=== PATIENT | male | born 1960 | race Caucasian/White ===

== ENCOUNTER 2017-01-16 16:31 | Emergency (ER) | payer OTHER ==
[~2017-01-16 16:31] MED LIST: ALBU8I INH; BENZ100 PO; LORTA5 PO; SYMB160A INH; TRAZ100 PO
[2017-01-16] MEDS ORDERED: SYMB80AE INH (16:49)
[2017-01-16] MEDS ORDERED: ALBU8TAB PO (16:49)
[2017-01-16] MEDS ORDERED: TRAZ100T4 PO (16:49)
[2017-01-16 16:53] VITALS: BP 132/87; PULSE 96; TEMP 98.5; O2SAT 96
[2017-01-16] MEDS ORDERED: DILT120T PO (16:59)
[2017-01-16] MEDS ORDERED: ASPI81CH CHEW (16:59)
--- NOTE | 2017-01-16 17:09 | PD ---
HPI Chief Complaint: Psychiatric Symptoms Time Seen by Provider: 16:50 Travel History International Travel<30 days: No Contact w/Intl Traveler<30days: No Traveled to known affect area: No History of Present Illness HPI This is a 56-year-old male who presents to the emergency department having been brought to [facility] under a Jean act because he was having thoughts of killing himself. He was referred here because he told them he has a history of lung cancer and is on multiple medications and they say that he is out of their scope of practice of care. Patient admits to drinking a lot of beer today and is a poor historian. Review of the patient's records demonstrate that he had a lung cancer which was resected in April of last year. His course was complicated by a persistent air leak associated with this chest tube. Ultimately he had clean tumor margins. He went to a consultation with Dr. Randall for possible radiation therapy and was told this wasn't indicated. He reports he takes tramadol intermittently for pain. PFSH Past Medical History Atrial Fibrillation: Yes Blood Disorders: No Cancer: Yes (Lung) Cardiovascular Problems: No Chemotherapy: No Congestive Heart Failure: No COPD: Yes Coronary Artery Disease: No Diabetes: No Endocrine: No Gastrointestinal Disorders: No Genitourinary: No Hypertension: No Immune Disorder: No Implanted Vascular Access Dvce: No Musculoskeletal: No Neurologic: Yes (hx of seizures "years ago") Psychiatric: No Reproductive: No Respiratory: Yes Seizures: Yes Past Surgical History Other Surgery: Yes (PART OF TOP RIGHT LUNG REMOVED FOR CA ) Social History Alcohol Use: Yes Tobacco Use: Yes Substance Use: Yes Allergies-Medications (Allergen,Severity, Reaction): Coded Allergies: No Known Allergies (Verified , 01/16/17) Reported Meds & Prescriptions Reported Meds & Active Scripts Active Reported Aspirin 81 Mg Chew 81 Mg CHEW DAILY Diltiazem (Diltiazem HCl) 120 Mg Tab 120 Mg PO DAILY Trazodone (Trazodone HCl) 100 Mg Tab 100 Mg PO HS Symbicort Inh (Budesonide/Formoterol Fumarate) 80-4.5 Mcg/Act Aero 2 Puff INH Q12HR Albuterol ER 12 HR (Albuterol Sulfate) 8 Mg Tab 8 Mg PO BID Do not crush or chew. Review of Systems ROS Limitations: Intoxication Physical Exam Narrative GENERAL:Well appearing, no acute distress SKIN: Focused skin assessment warm and dry. HEAD: Atraumatic. Normocephalic. EYES: Pupils equal and round. No injection or drainage. ENT: Moist mucous membranes NECK: Trachea midline. CARDIOVASCULAR: Regular rate and rhythm. No murmur appreciated. RESPIRATORY: Clear to auscultation. Breath sounds equal bilaterally. GASTROINTESTINAL: Abdomen soft, non-tender, nondistended. MUSCULOSKELETAL: No obvious deformities. NEUROLOGICAL: Awake and alert. No obvious cranial nerve deficits. Moving all extremities. PSYCHIATRIC: Depressed mood, poor eye contact Data Data Last Documented VS Vital Signs Date Time Temp Pulse Resp B/P Pulse Ox O2 Delivery O2 Flow Rate FiO2 01/16/17 16:53 98.5 96 132/87 96 Orders Complete Blood Count With Diff (01/16/17 17:01) Comprehensive Metabolic Panel (01/16/17 17:01) Electrocardiogram (01/16/17 ) Alcohol (Ethanol) (01/16/17 17:01) Drug Screen, Random Urine (01/16/17 17:01) Chest, Single Ap (01/16/17 ) Labs Laboratory Tests Test 01/16/17 17:10 White Blood Count 12.2 TH/MM3 Red Blood Count 5.14 MIL/MM3 Hemoglobin 16.1 GM/DL Hematocrit 47.4 % Mean Corpuscular Volume 92.3 FL Mean Corpuscular Hemoglobin 31.4 PG Mean Corpuscular Hemoglobin 34.0 % Concent Red Cell Distribution Width 13.5 % Platelet Count 229 TH/MM3 Mean Platelet Volume 8.1 FL Neutrophils (%) (Auto) 64.3 % Lymphocytes (%) (Auto) 27.9 % Monocytes (%) (Auto) 6.2 % Eosinophils (%) (Auto) 1.2 % Basophils (%) (Auto) 0.4 % Neutrophils # (Auto) 7.8 TH/MM3 Lymphocytes # (Auto) 3.4 TH/MM3 Monocytes # (Auto) 0.8 TH/MM3 Eosinophils # (Auto) 0.1 TH/MM3 Basophils # (Auto) 0.1 TH/MM3 CBC Comment DIFF FINAL Differential Comment Sodium Level 138 MEQ/L Potassium Level 3.4 MEQ/L Chloride Level 104 MEQ/L Carbon Dioxide Level 25.2 MEQ/L Anion Gap 9 MEQ/L Blood Urea Nitrogen 6 MG/DL Creatinine 0.76 MG/DL Estimat Glomerular Filtration 106 ML/MIN Rate Random Glucose 102 MG/DL Calcium Level 8.7 MG/DL Total Bilirubin 0.4 MG/DL Aspartate Amino Transf 42 U/L (AST/SGOT) Alanine Aminotransferase 41 U/L (ALT/SGPT) Alkaline Phosphatase 106 U/L Total Protein 7.6 GM/DL Albumin 3.9 GM/DL Ethyl Alcohol Level 200 MG/DL MDM Medical Decision Making Medical Screen Exam Complete: Yes Emergency Medical Condition: Yes Interpretation(s) Afebrile, mild tachycardia, normotensive Leukocytosis Mild hypokalemia Alcohols 200 Differential Diagnosis Alcohol intoxication, lung cancer, dehydration, electrolyte abnormality Narrative Course This is a 56-year-old male who presents to the emergency department reporting depression in the setting of acute alcohol intoxication. He was turned away from [facility] because of his history of lung cancer. As far as I can tell from the chart is lung cancer has been resected and he had clear margins this is not an active medical issue. Otherwise the patient has no medical complaints. I think he can be cleared to be evaluated by psychiatry. His depression likely reflects alcohol-induced mood disorder. Buffy Zapata MD January 16, 2017 17:09
[2017-01-16 17:34] LABS: AUTOMATED NEUTROPHIL # 7.8 TH/MM3 (1.8-7.7); BASOPHIL # 0.1 TH/MM3 (0-0.2); BASOPHIL % 0.4 % (0.0-2.0); EOSINOPHIL # 0.1 TH/MM3 (0-0.4); EOSINOPHIL % 1.2 % (0.0-4.0); HEMATOCRIT 47.4 % (39.0-51.0); HEMO FLAGS DIFF FINAL; LYMPH % 27.9 % (9.0-44.0); LYMPHOCYTE # 3.4 TH/MM3 (1.0-4.8); MEAN CELL VOLUME 92.3 FL (80.0-100.0); MEAN CORPUSCULAR HEMOGLOBIN 31.4 PG (27.0-34.0); MONO % 6.2 % (0.0-8.0); NEUT % 64.3 % (16.0-70.0); PLATELET COUNT 229 TH/MM3 (150-450); RED BLOOD COUNT 5.14 MIL/MM3 (4.50-5.90); RED CELL DISTRIBUTION WIDTH 13.5 % (11.6-17.2); WHITE BLOOD COUNT 12.2 TH/MM3 (4.0-11.0)
--- NOTE | 2017-01-16 17:39 | RADRPT ---
EXAM DATE/TIME: 01/16/2017 17:15 [facility] COMPARISON: CHEST SINGLE AP, April 25, 2016, 3:44. INDICATIONS : Shortness of breath. MEDICAL HISTORY : Carcinoma, lung. SURGICAL HISTORY : Right lobectomy lymph node. ENCOUNTER: Initial ACUITY: 3 days PAIN SCORE: 0/10 LOCATION: Bilateral chest FINDINGS: 2 frontal views of the chest demonstrate the lungs to be symmetrically aerated without evidence of ma ss, infiltrate or effusion. The lungs are hyperinflated bilaterally. Linear scarring within the later al right upper lobe. The cardiomediastinal contours are unremarkable. Osseous structures are intact . CONCLUSION: 1. Hyperinflation suggesting COPD. 2. Clear lungs otherwise. Kirill Gilmore Jr., MD on January 16, 2017 at 17:33 Board Certified Radiologist. This report was verified electronically.
[2017-01-16 17:56] LABS: ANION GAP 9 MEQ/L (5-15); AST (GOT) 42 U/L (15-37); BICARBONATE 25.2 MEQ/L (21.0-32.0); BLOOD UREA NITROGEN 6 MG/DL (7-18); CHLORIDE 104 MEQ/L (98-107); GLOMERULAR FILTRATION RATE 106 ML/MIN (>89); POTASSIUM 3.4 MEQ/L (3.5-5.1); SODIUM (NA) 138 MEQ/L (136-145)
[2017-01-16 17:59] LABS: ALKALINE PHOSPHATASE 106 U/L (45-117); ALT (GPT) 41 U/L (12-78); TOTAL BILIRUBIN ADULT 0.4 MG/DL (0.2-1.0)
[2017-01-16 18:19] LABS: AMPHETAMINE, URINE NEG (NEG); BARBITURATES, URINE NEG (NEG); COCAINE, URINE NEG (NEG)
[2017-01-16] MEDS ORDERED: chlordiazePOXIDE 25 MG CAP PO PRN (18:30)
[2017-01-16] MEDS ORDERED: ALBUTEROL SULFATE 90 MCG/ACT HFA 8 GM INHALER INH PRN (18:30)
[2017-01-16] MEDS: ALBUTEROL SULFATE 90 MCG/ACT HFA 18 GM INHALER INH PRN ×2 (19:16→23:40)
[2017-01-16 20:25] VITALS: BP 150/89; PULSE 111; RESP 18; O2SAT 94
[2017-01-16 22:31] VITALS: BP 146/68; PULSE 114; RESP 20; O2SAT 96
[2017-01-16] MEDS ORDERED: FLUMAZENIL 0.5 MG/5 ML VIAL IV PUSH PRN (23:00)
[2017-01-16] MEDS ORDERED: LORazepam 2 MG TAB PO PRN (23:00)
[2017-01-16] MEDS ORDERED: LORazepam 1 MG TAB PO PRN (23:00)
[2017-01-16] MEDS ORDERED: DILTIAZEM-CD 120 MG CAP ER PO ONE (23:00)
[2017-01-16] MEDS ORDERED: LORazepam 2 MG/ML VIAL IV PUSH PRN ×4 (23:00)
[2017-01-17 00:19] VITALS: BP 113/69; PULSE 95; RESP 18; O2SAT 99
[2017-01-17 02:00] VITALS: BP 125/82; PULSE 96; RESP 18; O2SAT 93
[2017-01-17] MEDS: ALBUTEROL SULFATE 90 MCG/ACT HFA 18 GM INHALER INH PRN (06:18)
[2017-01-17 06:20] VITALS: BP 142/88; PULSE 89; RESP 18; O2SAT 97
--- NOTE | 2017-01-17 08:47 | EKG ---
Date Performed: 01/16/2017 Time Performed: 18:34:15 PTAGE: 56 years EKG: Sinus rhythm POSSIBLE RIGHT VENTRICULAR CONDUCTION DELAY MODERATE ST DEPRESSION ABNORMAL ECG PREVIOUS TRACING : 04/01/2016 14.07 DOCTOR: Elpidio Anderson Interpretating Date/Time 01/17/2017 08:46:31
--- NOTE | 2017-01-17 10:46 | PD.CONS ---
Provisional Diagnosis Admission Date Cowley I. Alcohol use disorder, alcohol-induced mood disorder Cowley II. Deferred Cowley III. A. fib, COPD Cowley IV. Poor family and social support Cowley V. 55 History of Present Illness Service Psychiatry Consult Requested By Primary Care Physician Non-Staff HPI The patient is a 56-year-old man, domicile with friends in [place], single, unemployed, supported by [facility], without any previous psychiatric history, no previous psychiatric hospitalizations, no previous suicidal attempts, medical history of COPD and A. fib, who presents to the emergency department having been brought to [facility] under a Jean act because he was having thoughts of killing himself. He was referred here because he told them he has a history of lung cancer and is on multiple medications and they say that he is out of their scope of practice of care. Patient admits to drinking a lot of beer today and is a poor historian.Review of the patient's records demonstrate that he had a lung cancer which was resected in April of 2016. On psychiatric evaluation today patient is clinically sober, reports good mood, he denies saying that he wanted to kill himself, he says "I love myself too much to kill myself, I was actually looking for her from alcoholism". Patient denies depression, denies anxiety, denies perceptual disturbances, denies roxanne, denies suicidal or homicidal ideation, denies visual and auditory hallucinations. Patient is logical, coherent and relevant. Patient is oriented 3. No attention deficit observed. No paranoia, no delusions, no agitation, no aggressive behavior. Patient denies the use of illicit drugs, he endorses daily use of alcohol, 6-10 beers, he has been 3 times in detox in the past. Review of Systems Constitutional: DENIES: Diaphoretic episodes, Fatigue, Fever, Weight gain, Weight loss, Chills, Dizziness, Change in appetite, Night Sweats Endocrine: DENIES: Heat/cold intolerance, Polydipsia, Polyuria, Polyphagia Eyes: DENIES: Blurred vision, Diplopia, Eye inflammation, Eye pain, Vision loss , Photosensitivity, Double Vision Ears, nose, mouth, throat: DENIES: Tinnitus, Hearing loss, Vertigo, Nasal discharge, Oral lesions, Throat pain, Hoarseness, Ear Pain, Running Nose, Epistaxis, Sinus Pain, Toothache, Odynophagia Cardiovascular: DENIES: Chest pain, Palpitations, Syncope, Dyspnea on Exertion , PND, Lower Extremity Edema, Orthopnea, Claudication Gastrointestinal: DENIES: Abdominal pain, Black stools, Bloody stools, Constipation, Diarrhea, Nausea, Vomiting, Difficulty Swallowing, Anorexia Genitourinary: DENIES: Sexual dysfunction, Urinary frequency, Urinary incontinence, Urgency, Hematuria, Dysuria, Nocturia, Penile Discharge, Testicular Pain, Testicular Swelling Musculoskeletal: DENIES: Joint pain, Muscle aches, Stiffness, Joint Swelling, Back pain, Neck pain Integumentary: DENIES: Abnormal pigmentation, Nail changes, Pruritus, Rash Hematologic/lymphatic: DENIES: Bruising, Lymphadenopathy Immunologic/allergic: DENIES: Eczema, Urticaria Neurologic: DENIES: Abnormal gait, Headache, Localized weakness, Paresthesias, Seizures, Speech Problems, Tremor, Poor Balance Past Family Social History Coded Allergies: No Known Allergies (Verified , 01/16/17) Reported Medications Aspirin 81 Mg Chew81 Mg CHEW DAILY Ref 0 01/16/17 Diltiazem 120 Mg [id number] Mg PO DAILY #120 TAB Ref 0 01/16/17 Trazodone 100 Mg [id number] Mg PO HS #30 TAB Ref 0 01/16/17 Budesonide-Formoterol Inh (Symbicort Inh)80-4.5 Mcg/Act Aero2 Puff INH Q12HR # 1 INHALER Ref 0 01/16/17 Albuterol ER 12 HR 8 Mg Tab8 Mg PO BID #60 TAB Ref 0 Do not crush or chew. 01/16/17 Family History Patient denies psychiatric family history Social History Patient was born and raised in [place], he lives in [place] with friends, his divorce, unemployed, supported by [facility], highest level of education is 10th grade Patient's Strengths (min. 2) Verbal communication, insightful of his alcoholism Physical Exam On physical exam no tremors, no agitation, no psychomotor retardation, no withdrawal symptoms, no EPS, no stiffness, no gait disturbances present Vital Signs Vital Signs Date Time Temp Pulse Resp B/P Pulse Ox O2 Delivery O2 Flow Rate FiO2 01/17/17 06:20 89 18 142/88 97 Room Air 01/16/17 16:53 98.5 Lab Results Cowley III college is negative, BAL is 200 Mental Status Examination Appearance man, long hair, good hygiene, [facility], calm and cooperative Speech: Unremarkable Orientation: x3 Memory: Unremarkable Thought Process: Logical Thought Content: Unremarkable Language Fluent and is sometimes Fund of Knowledge Adequate for level of education Hallucination Type: None Attention and Concentration: Good Attention Remarks No attention deficit observed Suicidal Ideation: No Previous Suicide Attempts: No Homicidal Ideation: No Previous Homicide Attempts: No Insight: Good Affect: Good Affect if Inappropriate: Flat Mood: Appropriate Motor Activity: Normal gait Assessment & Plan Problem List: (1) Alcohol-induced mood disorder Assessment & Plan: On psychiatric evaluation today the patient does not present any objective, or subjective evidence of depression, roxanne, anxiety or psychosis. No withdrawal symptomatology reported. Patient is clinically sober , he denies suicidal or homicidal ideation, he denies visual and auditory hallucinations. Recent suicidal statement in they are seems to be related with poor judgment secondary to acute alcohol intoxication. Patient does not meet criteria for psychiatric admission, patient motivated to go back to [facility] to detox. Motivational interview provided. Jean act will be lifted. ICD Code: F10.94 Assessment & Plan Estimated LOS: Kt Bustillos MD January 17, 2017 10:46
== END 2017-01-17 08:33 | disposition home or self-care (01) ==
LOC: NEPC 16:31 → NEPJ 01-17 08:33
DX: F10.94 Alcohol use, unspecified with alcohol-induced mood disorder (principal); R94.31 Abnormal electrocardiogram [ECG] [EKG]; I48.91 Unspecified atrial fibrillation; J44.9 Chronic obstructive pulmonary disease, unspecified; E87.6 Hypokalemia; Z72.0 Tobacco use; Z85.118 Personal history of other malignant neoplasm of bronchus and lung
CPT/HCPCS: 71010; 80053; 80307; 85025; 93005

== ENCOUNTER 2017-01-17 15:18 | Emergency (ER) | payer OTHER ==
[~2017-01-17] VITALS: Ht 190.5 cm; Wt 75.0 kg
[~2017-01-17 15:18] MED LIST changes: -ALBU8I INH; +ALBU8TAB PO; +ASPI81CH CHEW; -BENZ100 PO; +DILT120T PO; -LORTA5 PO; -SYMB160A INH; +SYMB80AE INH; -TRAZ100 PO; +TRAZ100T4 PO
[2017-01-17 15:19] VITALS: BP 116/78; PULSE 97; RESP 15; TEMP 98.2; O2SAT 98
--- NOTE | 2017-01-17 15:28 | PD ---
Physical Exam Time Seen by Provider: 15:27 Narrative 56 y/o male presents requesting help with alcohol detoxification. Just here under BA yesterday after being transferred from [facility]. Poor historian. Also has a skin tear on L forearm from running into a door a few days ago. Vital signs reviewed. Seen at triage desk. Awaiting bed placement. Data Data Last Documented VS Vital Signs Date Time Temp Pulse Resp B/P Pulse Ox O2 Delivery O2 Flow Rate FiO2 01/17/17 15:19 98.2 97 15 116/78 98 MDM Medical Record Reviewed: Yes Supervised Visit with NORMA: Luca Murrell January 17, 2017 15:28
== END 2017-01-17 16:09 | disposition left against medical advice (07) ==
LOC: NED 15:18
DX: S51.812A Laceration without foreign body of left forearm, initial encounter (principal); W22.8XXA Striking against or struck by other objects, initial encounter
CPT/HCPCS: 99282

== ENCOUNTER 2017-10-26 15:35 | Inpatient (IN) | payer OTHER ==
[~2017-10-26] VITALS: Ht 190.5 cm; Wt 83.5 kg
[~2017-10-26 15:35] MED LIST changes: +ASPI-516 CHEW; -ASPI81CH CHEW
[2017-10-26 15:39] VITALS: BP 175/93; PULSE 127; RESP 22; TEMP 99.4; O2SAT 90
--- NOTE | 2017-10-26 16:39 | RADRPT ---
EXAM DATE/TIME: 10/26/2017 16:20 [facility] COMPARISON: CHEST PA & LAT, May 10, 2016, 12:37. INDICATIONS : Shortness of breath. MEDICAL HISTORY : Carcinoma, lung. SURGICAL HISTORY : Right lobectomy lymph node. ENCOUNTER: Initial ACUITY: 3 days PAIN SCORE: 0/10 LOCATION: chest FINDINGS: Moderate hyperinflation with pleural thickening on the right. The left lung is clear. The heart and pulmonary vascularity are normal. The portion of the bony skeleton visualized is unremarkable. CONCLUSION: Marked hyperinflation with postsurgical changes on the right otherwise negative. Lawrence Dill MD FACR on October 26, 2017 at 16:36 Board Certified Radiologist. This report was verified electronically.
[2017-10-26] MEDS: RESP: ALBUTEROL 2.5 MG/IPRATROPIUM 0.5 MG NEB (SCH) INH ×5 (16:44→18:19)
[2017-10-26] MEDS ORDERED: methylPREDNISolone SOD SUCC 125 MG/2 ML VIAL IV PUSH ONE (16:45)
--- NOTE | 2017-10-26 16:46 | PD ---
HPI Chief Complaint: Respiratory Symptoms Time Seen by Provider: 16:32 Travel History International Travel<30 days: No Contact w/Intl Traveler<30days: No Traveled to known affect area: No History of Present Illness HPI 57-year-old male patient with history of lung cancer, has not been following up with his oncologist since this summer, COPD, A. fib, presents to the ER today for several days of worsening dyspnea on exertion, coughing, subjective fevers. He has been trying to use his own nebulizers without significant relief. Modifying Factors: None Associated Signs & Symptoms: Worsening shortness of breath, dyspnea on exertion Risk Factors: Lung cancer, COPD PFSH Past Medical History Hx Anticoagulant Therapy: Yes (ELIQUIS) Atrial Fibrillation: Yes Blood Disorders: No Cancer: Yes (Lung) Cardiovascular Problems: Yes (A-FIB) Chemotherapy: No Congestive Heart Failure: No COPD: Yes Coronary Artery Disease: No Diabetes: No Endocrine: No Gastrointestinal Disorders: No Genitourinary: No Hypertension: No Immune Disorder: No Implanted Vascular Access Dvce: No Musculoskeletal: No Neurologic: Yes (hx of seizures "years ago") Psychiatric: No Reproductive: No Respiratory: Yes Seizures: Yes Tetanus Vaccination: > 5 Years Influenza Vaccination: No Past Surgical History Other Surgery: Yes (PART OF TOP RIGHT LUNG REMOVED FOR CA ) Social History Alcohol Use: Yes Tobacco Use: Yes (4 a day) Substance Use: Yes (CHRONIC ALCOHOL ABUSE) Allergies-Medications (Allergen,Severity, Reaction): Coded Allergies: No Known Allergies (Verified Allergy, Unknown, 10/26/17) Reported Meds & Prescriptions Reported Meds & Active Scripts Active Reported Aspirin 81 Mg Chew 81 Mg CHEW DAILY Diltiazem (Diltiazem HCl) 120 Mg Tab 120 Mg PO DAILY Trazodone (Trazodone HCl) 100 Mg Tab 100 Mg PO HS Symbicort Inh (Budesonide/Formoterol Fumarate) 80-4.5 Mcg/Act Aero 2 Puff INH Q12HR Albuterol ER 12 HR (Albuterol Sulfate) 8 Mg Tab 8 Mg PO BID Do not crush or chew. Review of Systems Except as stated in HPI: all other systems reviewed are Neg Physical Exam Narrative GENERAL: Well-developed middle-age male patient currently in moderate respiratory distress. Awake and oriented 3. SKIN: Focused skin assessment warm/dry. HEAD: Atraumatic. Normocephalic. EYES: Pupils equal and round. No scleral icterus. No injection or drainage. ENT: No nasal bleeding or discharge. Mucous membranes pink and moist. NECK: Trachea midline. No JVD. CARDIOVASCULAR: Regular rate and rhythm. No murmur appreciated. RESPIRATORY: Mild accessory muscle use. Decreased throughout bilaterally with mild wheezing. Breath sounds equal bilaterally. GASTROINTESTINAL: Abdomen soft, non-tender, nondistended. Hepatic and splenic margins not palpable. MUSCULOSKELETAL: No obvious deformities. No clubbing. No cyanosis. No edema. NEUROLOGICAL: Awake and alert. No obvious cranial nerve deficits. Motor grossly within normal limits. Normal speech. PSYCHIATRIC: Appropriate mood and affect; insight and judgment normal. Data Data Last Documented VS Vital Signs Date Time Temp Pulse Resp B/P (MAP) Pulse Ox O2 Delivery O2 Flow Rate FiO2 10/26/17 16:35 130 24 93 Nasal Cannula 3.00 10/26/17 15:39 99.4 175/93 (120) Orders Orders Electrocardiogram (10/26/17 16:00) Complete Blood Count With Diff (10/26/17 16:00) Basic Metabolic Panel (Bmp) (10/26/17 16:00) Ckmb (Isoenzyme) Profile (10/26/17 16:00) Troponin I (10/26/17 16:00) Influenzae A/B Antigen (10/26/17 16:00) Chest, Pa & Lat (10/26/17 16:00) Methylprednisolone So Succ Inj (Solumedr (10/26/17 16:45) Albuterol-Ipratropium Neb (Duoneb Neb) (10/26/17 16:45) Albuterol-Ipratropium Neb (Duoneb Neb) (10/26/17 17:15) CKMB (10/26/17 16:20) CKMB% (10/26/17 16:20) Albuterol-Ipratropium Neb (Duoneb Neb) (10/26/17 18:00) Oseltamivir (Tamiflu) (10/26/17 18:00) Admit Order (Ed Use Only) (10/26/17 18:08) Labs Laboratory Tests Test 10/26/17 16:20 White Blood Count 10.1 TH/MM3 Red Blood Count 4.83 MIL/MM3 Hemoglobin 15.6 GM/DL Hematocrit 44.2 % Mean Corpuscular Volume 91.6 FL Mean Corpuscular Hemoglobin 32.3 PG Mean Corpuscular Hemoglobin Concent 35.3 % Red Cell Distribution Width 12.6 % Platelet Count 238 TH/MM3 Mean Platelet Volume 7.3 FL Neutrophils (%) (Auto) 80.3 % Lymphocytes (%) (Auto) 11.9 % Monocytes (%) (Auto) 7.4 % Eosinophils (%) (Auto) 0.1 % Basophils (%) (Auto) 0.3 % Neutrophils # (Auto) 8.1 TH/MM3 Lymphocytes # (Auto) 1.2 TH/MM3 Monocytes # (Auto) 0.8 TH/MM3 Eosinophils # (Auto) 0.0 TH/MM3 Basophils # (Auto) 0.0 TH/MM3 CBC Comment DIFF FINAL Differential Comment Blood Urea Nitrogen 8 MG/DL Creatinine 0.88 MG/DL Random Glucose 90 MG/DL Calcium Level 8.7 MG/DL Sodium Level 135 MEQ/L Potassium Level 3.6 MEQ/L Chloride Level 103 MEQ/L Carbon Dioxide Level 25.3 MEQ/L Anion Gap 7 MEQ/L Estimat Glomerular Filtration Rate 89 ML/MIN Total Creatine Kinase 216 U/L Creatine Kinase MB 6.3 NG/ML Troponin I LESS THAN 0.02 NG/ML MDM Medical Decision Making Medical Screen Exam Complete: Yes Emergency Medical Condition: Yes Medical Record Reviewed: Yes Interpretation(s) Laboratory Tests Test 10/26/17 16:20 Neutrophils (%) (Auto) 80.3 % (16.0-70.0) Neutrophils # (Auto) 8.1 TH/MM3 (1.8-7.7) Sodium Level 135 MEQ/L (136-145) Creatine Kinase MB 6.3 NG/ML (0.5-3.6) Troponin I LESS THAN 0.02 NG/ML Last 24 hours Impressions Chest X-Ray 10/26/17 1600 Draft Impressions: Service Date/Time: Thursday, October 26, 2017 16:20 - CONCLUSION: Marked hyperinflation with postsurgical changes on the right otherwise negative. Lawrence Dill MD FACR Differential Diagnosis COPD exacerbation versus CHF versus pneumonia Narrative Course Chest x-ray did not show any signs of acute pulmonary processes. He is wheezing heavily in the ER and was given Solu-Medrol and several doses of DuoNeb 's. He is influenza positive. After 4 duo nebs in the ER, at this point, my plan would be to keep him for further treatment. Case is discussed with [facility] hospitalist service for admission. Diagnosis Primary Impression: COPD exacerbation Additional Impression: Influenza Admitting Information Admitting Physician Requests: Admit Vicki Duong MD Oct 26, 2017 16:46
[2017-10-26 17:22] LABS: AUTOMATED NEUTROPHIL # 8.1 TH/MM3 (1.8-7.7); BASOPHIL % 0.3 % (0.0-2.0); EOSINOPHIL % 0.1 % (0.0-4.0); HEMATOCRIT 44.2 % (39.0-51.0); HEMOGLOBIN 15.6 GM/DL (13.0-17.0); LYMPH % 11.9 % (9.0-44.0); LYMPHOCYTE # 1.2 TH/MM3 (1.0-4.8); MEAN CELL VOLUME 91.6 FL (80.0-100.0); MEAN CORPUSCULAR HEMOGLOBIN 32.3 PG (27.0-34.0); MEAN CORPUSCULAR HGB CONC 35.3 % (32.0-36.0); MEAN PLATELET VOLUME 7.3 FL (7.0-11.0); MONO % 7.4 % (0.0-8.0); MONOCYTE # 0.8 TH/MM3 (0-0.9); NEUT % 80.3 % (16.0-70.0); PLATELET COUNT 238 TH/MM3 (150-450); RED BLOOD COUNT 4.83 MIL/MM3 (4.50-5.90); RED CELL DISTRIBUTION WIDTH 12.6 % (11.6-17.2); WHITE BLOOD COUNT 10.1 TH/MM3 (4.0-11.0)
[2017-10-26 17:37] LABS: BICARBONATE 25.3 MEQ/L (21.0-32.0); BLOOD UREA NITROGEN 8 MG/DL (7-18); CALCIUM 8.7 MG/DL (8.5-10.1); CHLORIDE 103 MEQ/L (98-107); CREATININE 0.88 MG/DL (0.60-1.30); GLOMERULAR FILTRATION RATE 89 ML/MIN (>89); GLUCOSE,RANDOM 90 MG/DL (74-106); SODIUM (NA) 135 MEQ/L (136-145)
[2017-10-26 17:40] LABS: TROPONIN I LESS THAN 0.02 NG/ML (0.02-0.05)
[2017-10-26] MEDS ORDERED: OSELTAMIVIR PHOSPHATE 75 MG CAP PO ONE (18:00)
[2017-10-26 18:22] VITALS: BP 173/90; PULSE 124; RESP 24; O2SAT 91
[2017-10-26] MEDS ORDERED: SENNOSIDES 8.6 MG TAB PO PRN (18:30)
[2017-10-26] MEDS ORDERED: SODIUM CHLORIDE 0.9% FLUSH 10 ML FLUSH IV FLUSH PRN ×2 (18:30→19:00)
[2017-10-26] MEDS ORDERED: ONDANSETRON HCL 4 MG/2 ML VIAL IVP PRN (18:30)
[2017-10-26] MEDS ORDERED: NALOXONE HCL 0.4 MG/ML AMP IV PUSH PRN (18:30)
[2017-10-26] MEDS ORDERED: LACTULOSE SYRUP 20 GM/30 ML CUP PO PRN (18:30)
[2017-10-26] MEDS ORDERED: BISACODYL 10 MG SUPP RECTAL PRN (18:30)
[2017-10-26] MEDS ORDERED: ACETAMINOPHEN 325 MG TAB PO PRN ×2 (18:30→19:00)
--- NOTE | 2017-10-26 18:59 | HHI.HP ---
[facility] Solitario Barrios MD Admission Diagnosis COPD exacerbation/influenza Diagnoses: (1) COPD (chronic obstructive pulmonary disease) Diagnosis: Principal (2) Influenza A Diagnosis: Principal (3) A-fib Diagnosis: Principal (4) HTN (hypertension) Diagnosis: Principal (5) Tobacco abuse Diagnosis: Principal Travel History International Travel<30 Days: No Contact w/Intl Traveler <30 Da: No Traveled to Known Affected Are: No History of Present Illness This is a 57-year-old male with a PMH of A. fib, HTN, COPD, h/o Lung CA and Tobacco Abuse who presented to the ER with complaints of SOB and cough in addition to subjective fevers/chills x2-3 days. States he's been using his home Albuterol Neb w/ no significant relief. Denies chest pain or sick contacts. SOB is intermittent, moderate, worse w/ exertion. On arrival, BP 135 /93, HR 127, O2 sat 90% on RA, Temp 99.4. WBC century unremarkable. Chemistry essentially unremarkable. Troponin negative. CXR with marked hyperinflation. Influenza A+. +wheezing on exam. S/p Solu-Medrol, Tamiflu, Rocephin/Zithro in ER. Review of Systems Except as stated in HPI: all other systems reviewed are Neg ROS: 14 point review of systems otherwise negative. Past Family Social History Past Medical History PMH: A. fib, HTN, COPD, h/o Lung CA and Tobacco Abuse Past Surgical History PAST SURGICAL HISTORY: Lung Lobectomy Allergies: Coded Allergies: No Known Allergies (Verified Allergy, Unknown, 10/26/17) Family History PAST FAMILY HISTORY: Reviewed. No h/o DM or CAD Social History PAST SOCIAL HISTORY: History of alcohol abuse. Positive for tobacco. Negative for drugs. Physical Exam Vital Signs Vital Signs Date Time Temp Pulse Resp B/P (MAP) Pulse Ox O2 Delivery O2 Flow Rate FiO2 10/26/17 18:22 124 24 173/90 (117) 91 Aerosol Mask 10.00 10/26/17 16:35 130 24 93 Nasal Cannula 3.00 10/26/17 15:39 99.4 127 22 175/93 (120) 90 Physical Exam PE: GENERAL: Middle-aged male in no acute distress. HEENT: PERRLA, EOMI. No scleral icterus or conjunctival pallor. No lid lag or facial droop. CARDIOVASCULAR: Regular rate and rhythm. No obvious murmurs to auscultation. No chest tenderness to palpation. RESPIRATORY: No obvious rhonchi. Occasional wheezing. Clear to auscultation. Breath sounds equal bilaterally. GASTROINTESTINAL: Abdomen soft, non-tender, nondistended. BS normal. MUSCULOSKELETAL: Extremities without clubbing, cyanosis, or edema. No obvious deformities. NEUROLOGICAL: Awake, alert and oriented x4. No focal neurologic deficits. Moving both upper and lower extremities spontaneously. Laboratory Laboratory Tests Test 10/26/17 16:20 White Blood Count 10.1 Red Blood Count 4.83 Hemoglobin 15.6 Hematocrit 44.2 Mean Corpuscular Volume 91.6 Mean Corpuscular Hemoglobin 32.3 Mean Corpuscular Hemoglobin Concent 35.3 Red Cell Distribution Width 12.6 Platelet Count 238 Mean Platelet Volume 7.3 Neutrophils (%) (Auto) 80.3 Lymphocytes (%) (Auto) 11.9 Monocytes (%) (Auto) 7.4 Eosinophils (%) (Auto) 0.1 Basophils (%) (Auto) 0.3 Neutrophils # (Auto) 8.1 Lymphocytes # (Auto) 1.2 Monocytes # (Auto) 0.8 Eosinophils # (Auto) 0.0 Basophils # (Auto) 0.0 CBC Comment DIFF FINAL Differential Comment Blood Urea Nitrogen 8 Creatinine 0.88 Random Glucose 90 Calcium Level 8.7 Sodium Level 135 Potassium Level 3.6 Chloride Level 103 Carbon Dioxide Level 25.3 Anion Gap 7 Estimat Glomerular Filtration Rate 89 Total Creatine Kinase 216 Creatine Kinase MB 6.3 Troponin I LESS THAN 0.02 Date/Time Source Procedure Growth Status 10/26/17 16:20 Nasal Washing Influenza Types A,B Antigen (SEAN) - Final Positive For Flu A Antigen Complete Result Diagram: 10/26/17 1620 10/26/17 1620 Caprini VTE Risk Assessment Caprini VTE Risk Assessment: No/Low Risk (score <= 1) Caprini Risk Assessment Model Point Value = 1 Point Value = 2 Point Value = 3 Point Value = 5 Age 41-60 Minor surgery BMI > 25 kg/m2 Swollen legs Varicose veins or History of unexplained or recurrent spontaneous Oral contraceptives or hormone replacement Sepsis (< 1 month) Serious lung disease, including pneumonia (< 1 month) Abnormal pulmonary function Acute myocardial infarction Congestive heart failure (< 1 month) History of inflammatory bowel disease Medical patient at bed rest Age 61-74 Arthroscopic surgery Major open surgery (> 45 min) Laparoscopic surgery (> 45 min) Malignancy Confined to bed (> 72 hours) Immobilizing plaster cast Central venous access Age >= 75 History of VTE Family history of VTE Factor V Leiden Prothrombin [id number] Lupus anticoagulant Anticardiolipin antibodies Elevated serum homocysteine Heparin-induced thrombocytopenia Other congenital or acquired thrombophilia Stroke (< 1 month) Elective arthroplasty Hip, pelvis, or leg fracture Acute spinal cord injury (< 1 month) Prophylaxis Regimen Total Risk Factor Score Risk Level Prophylaxis Regimen 0-1 Low Early ambulation 2 Moderate Order ONE of the following: *Sequential Compression Device (SCD) *Heparin 5000 units SQ BID 3-4 Higher Order ONE of the following medications: *Heparin 5000 units SQ TID *Enoxaparin/Lovenox 40 mg SQ daily (WT < 150 kg, CrCl > 30 mL/min) *Enoxaparin/Lovenox 30 mg SQ daily (WT < 150 kg, CrCl > 10-29 mL/min) *Enoxaparin/Lovenox 30 mg SQ BID (WT < 150 kg, CrCl > 30 mL/min) AND/OR *Sequential Compression Device (SCD) 5 or more Highest Order ONE of the following medications: *Heparin 5000 units SQ TID (Preferred with Epidurals) *Enoxaparin/Lovenox 40 mg SQ daily (WT < 150 kg, CrCl > 30 mL/min) *Enoxaparin/Lovenox 30 mg SQ daily (WT < 150 kg, CrCl > 10-29 mL/min) *Enoxaparin/Lovenox 30 mg SQ BID (WT < 150 kg, CrCl > 30 mL/min) AND *Sequential Compression Device (SCD) Assessment and Plan Problem List: (1) COPD (chronic obstructive pulmonary disease) ICD Code: J44.9 - Chronic obstructive pulmonary disease, unspecified (2) HTN (hypertension) ICD Code: I10 - Essential (primary) hypertension (3) Influenza A ICD Code: J10.1 - Influenza due to other identified influenza virus with other respiratory manifestations (4) A-fib ICD Code: I48.91 - Unspecified atrial fibrillation (5) Tobacco abuse ICD Code: Z72.0 - Tobacco use Assessment and Plan A/P: 1. COPD: Chronic Respiratory Failure w/ Acute Exacerbation. Severe. + wheezing on exam. O2 sat 90% on RA on arrival, currently 96% on 4L NC. CXR w/ marked hyperinflation otherwise negative, images reviewed by me. Continue The Medrol, DuoNeb q4h and q2h prn, Symbicort, Mucinex. 2. Influenza A: Flu+, reports subjective fever/chills. S/p Tamiflu, will continue w/ Tamiflu bid. IVF for hydration. 3. HTN: Uncontrolled. BP 170's on arrival, resume home medications, monitor BP, antihypertensives as needed. 4. A-fib: Chronic. Rate controlled. Resume home Cardizem and ASA. 5. Tobacco Abuse: Pt counselled. NicoDerm prn if needed. 6. DVT Prophylaxis: SCD/Teds. 7. Social work for d/c planning as needed. 8. Case discussed w/ ER physician at length, labs/records/imaging reviewed by me. Catia Li MD Oct 26, 2017 18:59
[2017-10-26] MEDS ORDERED: MORPHINE SULFATE 2 MG/ML INJ IV PUSH PRN (19:00)
[2017-10-26 19:02] VITALS: BP 149/83; PULSE 123; RESP 22; O2SAT 97
[2017-10-26] MEDS: RESP: ALBUTEROL 2.5 MG/IPRATROPIUM 0.5 MG NEB (SCH) NEB (20:00)
[2017-10-26] MEDS ORDERED: BUDESONIDE-FORMOTEROL 80/4.5 MCG INHALER INH SCH (21:00)
[2017-10-26] MEDS: SODIUM CHLORIDE 0.9% FLUSH 10 ML FLUSH IV FLUSH SCH ×2 (21:00→23:35)
[2017-10-26] MEDS: guaiFENesin E.R. 600 MG TAB PO SCH (23:34)
[2017-10-26] MEDS: traZODone HCL 100 MG TAB PO SCH (23:34)
[2017-10-26] MEDS: LEVOFLOXACIN 750 MG PREMIX INJ 150 ML IV SCH (23:35)
[2017-10-26] MEDS: BUDESONIDE-FORMOTEROL 160/4.5 MCG INHALER INH SCH (23:36)
[2017-10-26] MEDS: methylPREDNISolone SOD SUCC 40 MG/1 ML VIAL IV PUSH SCH (23:36)
[2017-10-27] VITALS (13 sets, daily range): BP systolic 105–126; BP diastolic 64–89; PULSE 74–97; RESP 18–20; TEMP 97.8–99.6; O2SAT 95–100
[2017-10-27 00:03] LABS: TROPONIN I LESS THAN 0.02 NG/ML (0.02-0.05)
[2017-10-27] MEDS: methylPREDNISolone SOD SUCC 40 MG/1 ML VIAL IV PUSH SCH ×4 (06:39→23:39)
[2017-10-27] MEDS: RESP: ALBUTEROL 2.5 MG/IPRATROPIUM 0.5 MG NEB (SCH) NEB ×4 (07:49→19:05)
[2017-10-27 08:20] LABS: AUTOMATED NEUTROPHIL # 5.3 TH/MM3 (1.8-7.7); BASOPHIL % 0.1 % (0.0-2.0); HEMATOCRIT 39.8 % (39.0-51.0); LYMPH % 11.7 % (9.0-44.0); LYMPHOCYTE # 0.7 TH/MM3 (1.0-4.8); MEAN CELL VOLUME 90.2 FL (80.0-100.0); MEAN CORPUSCULAR HEMOGLOBIN 31.8 PG (27.0-34.0); MEAN CORPUSCULAR HGB CONC 35.3 % (32.0-36.0); MEAN PLATELET VOLUME 7.2 FL (7.0-11.0); MONO % 3.5 % (0.0-8.0); MONOCYTE # 0.2 TH/MM3 (0-0.9); NEUT % 84.7 % (16.0-70.0); PLATELET COUNT 238 TH/MM3 (150-450); RED BLOOD COUNT 4.41 MIL/MM3 (4.50-5.90); RED CELL DISTRIBUTION WIDTH 12.4 % (11.6-17.2); WHITE BLOOD COUNT 6.3 TH/MM3 (4.0-11.0)
[2017-10-27 08:41] LABS: BICARBONATE 25.2 MEQ/L (21.0-32.0); BLOOD UREA NITROGEN 12 MG/DL (7-18); CALCIUM 8.7 MG/DL (8.5-10.1); CHLORIDE 102 MEQ/L (98-107); CREATININE 0.75 MG/DL (0.60-1.30); GLOMERULAR FILTRATION RATE 107 ML/MIN (>89); GLUCOSE,RANDOM 144 MG/DL (74-106); SODIUM (NA) 135 MEQ/L (136-145)
[2017-10-27 08:45] LABS: TROPONIN I LESS THAN 0.02 NG/ML (0.02-0.05)
[2017-10-27] MEDS: SODIUM CHLORIDE 0.9% FLUSH 10 ML FLUSH IV FLUSH SCH ×4 (09:00→21:13)
[2017-10-27] MEDS: DILTIAZEM-CD 120 MG CAP ER PO SCH (09:00)
[2017-10-27] MEDS: ASPIRIN 81 MG CHEW TAB CHEW SCH (10:25)
[2017-10-27] MEDS: guaiFENesin E.R. 600 MG TAB PO SCH ×2 (10:26→21:06)
[2017-10-27] MEDS: OSELTAMIVIR PHOSPHATE 75 MG CAP PO SCH ×2 (10:26→21:07)
[2017-10-27] MEDS: BUDESONIDE-FORMOTEROL 160/4.5 MCG INHALER INH SCH ×2 (10:26→21:05)
--- NOTE | 2017-10-27 15:25 | HHI.PR ---
Subjective Remarks This is a 57-year-old male with a PMH of A. fib, HTN, COPD, h/o Lung CA and Tobacco Abuse who presented to the ER with complaints of SOB and cough in addition to subjective fevers/chills x2-3 days. States he's been using his home Albuterol Neb w/ no significant relief. Denies chest pain or sick contacts. SOB is intermittent, moderate, worse w/ exertion. On arrival, BP 135 /93, HR 127, O2 sat 90% on RA, Temp 99.4. WBC century unremarkable. Chemistry essentially unremarkable. Troponin negative. CXR with marked hyperinflation. Influenza A+. +wheezing on exam. S/p Solu-Medrol, Tamiflu, Rocephin/Zithro in ER. 2-10 still very short of breath Still active wheezing Discussed with patient and RN Continue on Solu-Medrol Tamiflu Rocephin and Zithromax make sure he is on some Mucinex and incentive spirometry Objective Vitals Vital Signs Date Time Temp Pulse Resp B/P (MAP) Pulse Ox O2 Delivery O2 Flow Rate FiO2 10/27/17 12:22 97.8 10/27/17 12:10 89 10/27/17 10:04 99.2 94 18 126/80 (95) 96 10/27/17 08:10 88 10/27/17 07:51 96 Nasal Cannula 4.00 10/27/17 04:24 98.0 74 18 123/89 (100) 100 10/27/17 04:00 79 10/27/17 00:00 97 10/27/17 00:00 99.6 89 20 122/74 (90) 98 10/26/17 21:03 Nasal Cannula 3.00 10/26/17 19:02 123 22 149/83 (105) 97 Nasal Cannula 3.00 10/26/17 18:22 124 24 173/90 (117) 91 Aerosol Mask 10.00 10/26/17 16:35 130 24 93 Nasal Cannula 3.00 10/26/17 15:39 99.4 127 22 175/93 (120) 90 I/O 10/26/17 10/26/17 10/26/17 10/27/17 10/27/17 10/27/17 07:00 15:00 23:00 07:00 15:00 23:00 Output Total 500 ml Balance -500 ml Output Urine Total 500 ml Result Diagram: 10/27/17 0740 10/27/17 0440 Other Results Laboratory Tests Test 10/26/17 16:20 10/26/17 23:25 10/27/17 04:40 10/27/17 07:40 White Blood Count 10.1 TH/MM3 6.3 TH/MM3 Red Blood Count 4.83 MIL/MM3 4.41 MIL/MM3 Hemoglobin 15.6 GM/DL 14.0 GM/DL Hematocrit 44.2 % 39.8 % Mean Corpuscular Volume 91.6 FL 90.2 FL Mean Corpuscular Hemoglobin 32.3 PG 31.8 PG Mean Corpuscular Hemoglobin Concent 35.3 % 35.3 % Red Cell Distribution Width 12.6 % 12.4 % Platelet Count 238 TH/MM3 238 TH/MM3 Mean Platelet Volume 7.3 FL 7.2 FL Neutrophils (%) (Auto) 80.3 % 84.7 % Lymphocytes (%) (Auto) 11.9 % 11.7 % Monocytes (%) (Auto) 7.4 % 3.5 % Eosinophils (%) (Auto) 0.1 % 0.0 % Basophils (%) (Auto) 0.3 % 0.1 % Neutrophils # (Auto) 8.1 TH/MM3 5.3 TH/MM3 Lymphocytes # (Auto) 1.2 TH/MM3 0.7 TH/MM3 Monocytes # (Auto) 0.8 TH/MM3 0.2 TH/MM3 Eosinophils # (Auto) 0.0 TH/MM3 0.0 TH/MM3 Basophils # (Auto) 0.0 TH/MM3 0.0 TH/MM3 CBC Comment DIFF FINAL DIFF FINAL Differential Comment Blood Urea Nitrogen 8 MG/DL 12 MG/DL Creatinine 0.88 MG/DL 0.75 MG/DL Random Glucose 90 MG/DL 144 MG/DL Calcium Level 8.7 MG/DL 8.7 MG/DL Sodium Level 135 MEQ/L 135 MEQ/L Potassium Level 3.6 MEQ/L 3.7 MEQ/L Chloride Level 103 MEQ/L 102 MEQ/L Carbon Dioxide Level 25.3 MEQ/L 25.2 MEQ/L Anion Gap 7 MEQ/L 8 MEQ/L Estimat Glomerular Filtration Rate 89 ML/MIN 107 ML/MIN Total Creatine Kinase 216 U/L 197 U/L 150 U/L Creatine Kinase MB 6.3 NG/ML Troponin I LESS THAN 0.02 NG/ML LESS THAN 0.02 NG/ML LESS THAN 0.02 NG/ML Imaging Last Impressions Chest X-Ray 10/26/17 1600 Signed Impressions: Service Date/Time: Thursday, October 26, 2017 16:20 - CONCLUSION: Marked hyperinflation with postsurgical changes on the right otherwise negative. Lawrence Dill MD FACR Objective Remarks GENERAL: He is awake alert and oriented 3 talkative and cooperative little disheveled SKIN: Warm and dry. HEAD: Atraumatic. Normocephalic. EYES: Pupils equal and round. No scleral icterus. No injection or drainage. Extraocular muscles intact wearing glasses ENT: No nasal bleeding or discharge. Mucous membranes pink and moist. Tongue is midline NECK: Trachea midline. No JVD. Supple CARDIOVASCULAR: Regular rate and rhythm. S1 and S2 no S3 or S4 RESPIRATORY: No accessory muscle use. Rhonchi and wheezes bilaterally throughout all schneider. Breath sounds equal bilaterally. GASTROINTESTINAL: Abdomen soft, non-tender, nondistended. Hepatic and splenic margins not palpable. MUSCULOSKELETAL: Extremities without clubbing, cyanosis, or edema. No obvious deformities. NEUROLOGICAL: Awake and alert. No obvious cranial nerve deficits. Motor grossly within normal limits. 4 out of 5 muscle strength in the arms and legs. Normal speech. PSYCHIATRIC: Appropriate mood and affect; insight and judgment normal. Procedures NONE Medications and IVs Current Medications Methylprednisolone Sodium Succinate (SoluMEDROL INJ) 125 mg ONCE ONCE IV PUSH Last administered on 10/26/17at 16:41; Start 10/26/17 at 16:45; Stop 10/26/17 at 16: 46; Status DC Albuterol/ Ipratropium (Duoneb Neb) 1 ampule Q15M INH Last administered on at 16:51; Start 10/26/17 at 16:45; Stop 10/26/17 at 17:01; Status DC Albuterol/ Ipratropium (Duoneb Neb) 1 ampule Q15M INH Last administered on at 17:35; Start 10/26/17 at 17:15; Stop 10/26/17 at 17:31; Status DC Albuterol/ Ipratropium (Duoneb Neb) 1 ampule Q15M INH Last administered on at 18:19; Start 10/26/17 at 18:00; Stop 10/26/17 at 18:16; Status DC Oseltamivir Phosphate (Tamiflu) 75 mg ONCE ONCE PO Last administered on at 18:45; Start 10/26/17 at 18:00; Stop 10/26/17 at 18:01; Status DC Aspirin (Aspirin Chew) 81 mg DAILY CHEW Last administered on 10/27/17at 10:25; Start 10/27/17 at 09:00 Budesonide/ Formoterol Fumarate (Symbicort 80-4.5 Mcg Inh) 2 puff Q12HR INH ; Start 10/26/17 at 21:00; Stop 10/26/17 at 21:00; Status DC Trazodone HCl (Desyrel) 100 mg HS PO Last administered on 10/26/17at 23:34; Start 10/26/17 at 21:00 Diltiazem HCl (Cardizem Cd) 120 mg DAILY PO Last administered on 10/27/17at 09: 00; Start 10/27/17 at 09:00 Sodium Chloride (NS Flush) 2 ml UNSCH PRN IV FLUSH FLUSH AFTER USING IV ACCESS Last administered on 10/27/17at 06:39; Start 10/26/17 at 18:30 Sodium Chloride (NS Flush) 2 ml BID IV FLUSH Last administered on 10/27/17at 10: 24; Start 10/26/17 at 21:00 Acetaminophen (Tylenol) 650 mg Q4H PRN PO TEMP > 100.4; Start 10/26/17 at 18:30 Ondansetron HCl (Zofran Inj) 4 mg Q6H PRN IVP NAUSEA OR VOMITING; Start at 18:30 Naloxone HCl (Narcan Inj) 0.4 mg UNSCH PRN IV PUSH SEE LABEL COMMENTS; Start at 18:30 Sennosides (Senokot) 17.2 mg Q12H PRN PO Moderate constipation; Start 10/26/17 at 18:30 Bisacodyl (Dulcolax Supp) 10 mg DAILY PRN RECTAL SEVERE CONSITIPATION; Start at 18:30 Lactulose (Lactulose Liq) 30 ml DAILY PRN PO SEVERE CONSITIPATION; Start at 18:30 Methylprednisolone Sodium Succinate (SoluMEDROL INJ) 40 mg Q6HR IV PUSH Last administered on 10/27/17at 12:20; Start 10/27/17 at 00:00 Albuterol/ Ipratropium (Duoneb Neb) 1 ampule Q4HR WHILE AWAKE NEB NEB Last administered on 10/27/17at 11:59; Start 10/26/17 at 20:00 Albuterol/ Ipratropium (Duoneb Neb) 1 ampule Q2HR NEB PRN NEB SOB/WHEEZING; Start 10/26/17 at 19:00 Guaifenesin (Mucinex Er) 1,200 mg BID PO Last administered on 10/27/17at 10:26; Start 10/26/17 at 21:00 Budesonide/ Formoterol Fumarate (Symbicort 160-4.5 Mcg Inh) 2 puff Q12HR INH Last administered on 10/27/17at 10:26; Start 10/26/17 at 21:00 Sodium Chloride (NS Flush) 2 ml UNSCH PRN IV FLUSH FLUSH AFTER USING IV ACCESS ; Start 10/26/17 at 19:00 Sodium Chloride (NS Flush) 2 ml BID IV FLUSH ; Start 10/26/17 at 21:00 Acetaminophen (Tylenol) 650 mg Q6H PRN PO FEVER/PAIN SCALE 1 TO 2; Start at 19:00 Acetaminophen/ Hydrocodone Bitart ([place] 5-325 Mg) 1 tab Q4H PRN PO PAIN SCALE 3 TO 5; Start 10/26/17 at 19:00 Morphine Sulfate (Morphine Inj) 2 mg Q3H PRN IV PUSH Pain 6-10.; Start 10/26/17 at 19:00 Oseltamivir Phosphate (Tamiflu) 75 mg BID PO Last administered on 10/27/17at 10: 26; Start 10/27/17 at 09:00 Levofloxacin/ Dextrose 150 ml @ 100 mls/hr Q24H IV Last administered on at 23:35; Start 10/26/17 at 21:00 A/P Problem List: (1) COPD (chronic obstructive pulmonary disease) ICD Code: J44.9 - Chronic obstructive pulmonary disease, unspecified (2) HTN (hypertension) ICD Code: I10 - Essential (primary) hypertension (3) Influenza A ICD Code: J10.1 - Influenza due to other identified influenza virus with other respiratory manifestations (4) A-fib ICD Code: I48.91 - Unspecified atrial fibrillation (5) Tobacco abuse ICD Code: Z72.0 - Tobacco use Assessment and Plan 1. COPD: Chronic Respiratory Failure w/ Acute Exacerbation. Severe. + wheezing on exam. O2 sat 90% on RA on arrival, currently 96% on 4L NC. CXR w/ marked hyperinflation otherwise negative, images reviewed by me. Continue The soluMedrol, DuoNeb q4h and q2h prn, Symbicort, Mucinex. Incentive spirometry 2. Influenza A: Flu+, reports subjective fever/chills. S/p Tamiflu, will continue w/ Tamiflu bid. IVF for hydration. 3. HTN: Uncontrolled. BP 170's on arrival, resume home medications, monitor BP, antihypertensives as needed. 4. A-fib: Chronic. Rate controlled. Resume home Cardizem and ASA. 5. Tobacco Abuse: Pt counselled. NicoDerm prn if needed. 6. DVT Prophylaxis: SCD/Teds. 7. Social work for d/c planning as needed. 8. Case discussed w/ ER physician at length, labs/records/imaging reviewed We'll get a.m. labs Physical therapy and occupational therapy to eval and treat Case management consult Smoking cessation Add Catapres when necessary for hypertension Discharge Planning Pending improvement Lawrence Cunha DO Oct 27, 2017 15:25
[2017-10-27] MEDS ORDERED: cloNIDine HCL 0.1 MG TAB PO PRN (15:30)
[2017-10-27] MEDS: LORazepam 0.5 MG TAB PO PRN (16:39)
[2017-10-27] MEDS: LEVOFLOXACIN 750 MG PREMIX INJ 150 ML IV SCH (21:05)
[2017-10-27] MEDS: traZODone HCL 100 MG TAB PO SCH (21:06)
[2017-10-27] MEDS: RESP: ALBUTEROL 2.5 MG/IPRATROPIUM 0.5 MG NEB (PRN) NEB (22:42)
--- NOTE | 2017-10-27 23:56 | EKG ---
Date Performed: 10/26/2017 Time Performed: 17:08:37 PTAGE: 57 years EKG: Sinus rhythm INDETERMINATE AXIS RIGHT BUNDLE BRANCH BLOCK ABNORMAL ECG PREVIOUS TRACING : 01/16/2017 18.34 Compared to prior tracing, now with RBBB DOCTOR: Dante Chino Interpretating Date/Time 10/27/2017 23:54:59
[2017-10-28] VITALS (11 sets, daily range): BP systolic 108–120; BP diastolic 58–96; PULSE 68–144; RESP 18–20; TEMP 98–98.7; O2SAT 95–98
[2017-10-28] MEDS: methylPREDNISolone SOD SUCC 40 MG/1 ML VIAL IV PUSH SCH ×3 (05:51→18:00)
[2017-10-28] MEDS: RESP: ALBUTEROL 2.5 MG/IPRATROPIUM 0.5 MG NEB (PRN) NEB (06:23)
[2017-10-28] MEDS: RESP: ALBUTEROL 2.5 MG/IPRATROPIUM 0.5 MG NEB (SCH) NEB ×4 (07:41→19:08)
[2017-10-28 08:57] LABS: AUTOMATED NEUTROPHIL # 16.5 TH/MM3 (1.8-7.7); HEMOGLOBIN 13.8 GM/DL (13.0-17.0); LYMPHOCYTE # 0.9 TH/MM3 (1.0-4.8); MEAN CORPUSCULAR HEMOGLOBIN 31.8 PG (27.0-34.0); MEAN CORPUSCULAR HGB CONC 34.5 % (32.0-36.0); MEAN PLATELET VOLUME 7.3 FL (7.0-11.0); MONO % 2.5 % (0.0-8.0); MONOCYTE # 0.4 TH/MM3 (0-0.9); NEUT % 92.5 % (16.0-70.0); PLATELET COUNT 245 TH/MM3 (150-450); RED BLOOD COUNT 4.35 MIL/MM3 (4.50-5.90); RED CELL DISTRIBUTION WIDTH 12.3 % (11.6-17.2); WHITE BLOOD COUNT 17.9 TH/MM3 (4.0-11.0)
[2017-10-28] MEDS: SODIUM CHLORIDE 0.9% FLUSH 10 ML FLUSH IV FLUSH SCH ×3 (09:00→22:44)
[2017-10-28 09:19] LABS: ALBUMIN 3.1 GM/DL (3.4-5.0); AST (GOT) 18 U/L (15-37); BICARBONATE 24.4 MEQ/L (21.0-32.0); BLOOD UREA NITROGEN 15 MG/DL (7-18); CALCIUM 8.7 MG/DL (8.5-10.1); CHLORIDE 102 MEQ/L (98-107); CREATININE 0.99 MG/DL (0.60-1.30); GLOMERULAR FILTRATION RATE 78 ML/MIN (>89); GLUCOSE,RANDOM 190 MG/DL (74-106); SODIUM (NA) 136 MEQ/L (136-145)
[2017-10-28 09:28] LABS: ALKALINE PHOSPHATASE 78 U/L (45-117); ALT (GPT) 16 U/L (12-78); FREE T4 1.08 NG/DL (0.76-1.46); PHOSPHORUS 2.3 MG/DL (2.5-4.9); TOTAL BILIRUBIN ADULT 0.2 MG/DL (0.2-1.0); TOTAL PROTEIN 6.7 GM/DL (6.4-8.2)
[2017-10-28] MEDS: OSELTAMIVIR PHOSPHATE 75 MG CAP PO SCH ×2 (09:29→22:44)
[2017-10-28] MEDS: DILTIAZEM-CD 120 MG CAP ER PO SCH (09:29)
[2017-10-28] MEDS: ASPIRIN 81 MG CHEW TAB CHEW SCH (09:29)
[2017-10-28] MEDS: BUDESONIDE-FORMOTEROL 160/4.5 MCG INHALER INH SCH ×2 (09:30→22:43)
[2017-10-28] MEDS: guaiFENesin E.R. 600 MG TAB PO SCH ×2 (09:30→22:44)
--- NOTE | 2017-10-28 12:53 | HHI.PR ---
Subjective Remarks This is a 57-year-old male with a PMH of A. fib, HTN, COPD, h/o Lung CA and Tobacco Abuse who presented to the ER with complaints of SOB and cough in addition to subjective fevers/chills x2-3 days. States he's been using his home Albuterol Neb w/ no significant relief. Denies chest pain or sick contacts. SOB is intermittent, moderate, worse w/ exertion. On arrival, BP 135 /93, HR 127, O2 sat 90% on RA, Temp 99.4. WBC century unremarkable. Chemistry essentially unremarkable. Troponin negative. CXR with marked hyperinflation. Influenza A+. +wheezing on exam. S/p Solu-Medrol, Tamiflu, Rocephin/Zithro in ER. 2-10 still very short of breath Still active wheezing Discussed with patient and RN Continue on Solu-Medrol Tamiflu Rocephin and Zithromax make sure he is on some Mucinex and incentive spirometry 2-11 PATIENT REMAINS VERY SOB GOT STUCK IN THE TOILET AND WAS NOT ABLE TO GET OUT DUE TO SOB TODAY DW RN AND PATIENT DOES NOT FEEL MUCH BETTER THAN YESTERDAY YET Objective Vitals Vital Signs Date Time Temp Pulse Resp B/P (MAP) Pulse Ox O2 Delivery O2 Flow Rate FiO2 10/28/17 12:12 98.2 68 20 120/60 (80) 97 10/28/17 08:36 98.7 70 20 115/70 (85) 98 10/28/17 07:42 97 Nasal Cannula 3.00 10/28/17 04:06 98.0 86 18 108/96 (100) 95 10/27/17 23:45 96 10/27/17 23:34 97.9 95 18 105/64 (78) 95 10/27/17 20:29 98.5 93 18 120/66 (84) 97 10/27/17 20:05 91 10/27/17 19:07 97 Nasal Cannula 3.50 I/O 10/27/17 10/27/17 10/27/17 10/28/17 10/28/17 10/28/17 07:00 15:00 23:00 07:00 15:00 23:00 Output Total 500 ml 450 ml Balance -500 ml -450 ml Output Urine Total 500 ml 450 ml Result Diagram: 10/28/17 0814 10/28/17 0814 Other Results Laboratory Tests Test 10/26/17 16:20 10/26/17 23:25 10/27/17 04:40 10/27/17 07:40 White Blood Count 10.1 TH/MM3 6.3 TH/MM3 Red Blood Count 4.83 MIL/MM3 4.41 MIL/MM3 Hemoglobin 15.6 GM/DL 14.0 GM/DL Hematocrit 44.2 % 39.8 % Mean Corpuscular Volume 91.6 FL 90.2 FL Mean Corpuscular Hemoglobin 32.3 PG 31.8 PG Mean Corpuscular Hemoglobin Concent 35.3 % 35.3 % Red Cell Distribution Width 12.6 % 12.4 % Platelet Count 238 TH/MM3 238 TH/MM3 Mean Platelet Volume 7.3 FL 7.2 FL Neutrophils (%) (Auto) 80.3 % 84.7 % Lymphocytes (%) (Auto) 11.9 % 11.7 % Monocytes (%) (Auto) 7.4 % 3.5 % Eosinophils (%) (Auto) 0.1 % 0.0 % Basophils (%) (Auto) 0.3 % 0.1 % Neutrophils # (Auto) 8.1 TH/MM3 5.3 TH/MM3 Lymphocytes # (Auto) 1.2 TH/MM3 0.7 TH/MM3 Monocytes # (Auto) 0.8 TH/MM3 0.2 TH/MM3 Eosinophils # (Auto) 0.0 TH/MM3 0.0 TH/MM3 Basophils # (Auto) 0.0 TH/MM3 0.0 TH/MM3 CBC Comment DIFF FINAL DIFF FINAL Differential Comment Blood Urea Nitrogen 8 MG/DL 12 MG/DL Creatinine 0.88 MG/DL 0.75 MG/DL Random Glucose 90 MG/DL 144 MG/DL Calcium Level 8.7 MG/DL 8.7 MG/DL Sodium Level 135 MEQ/L 135 MEQ/L Potassium Level 3.6 MEQ/L 3.7 MEQ/L Chloride Level 103 MEQ/L 102 MEQ/L Carbon Dioxide Level 25.3 MEQ/L 25.2 MEQ/L Anion Gap 7 MEQ/L 8 MEQ/L Estimat Glomerular Filtration Rate 89 ML/MIN 107 ML/MIN Total Creatine Kinase 216 U/L 197 U/L 150 U/L Creatine Kinase MB 6.3 NG/ML Troponin I LESS THAN 0.02 NG/ML LESS THAN 0.02 NG/ML LESS THAN 0.02 NG/ML Test 10/28/17 08:14 White Blood Count 17.9 TH/MM3 Red Blood Count 4.35 MIL/MM3 Hemoglobin 13.8 GM/DL Hematocrit 40.0 % Mean Corpuscular Volume 92.0 FL Mean Corpuscular Hemoglobin 31.8 PG Mean Corpuscular Hemoglobin Concent 34.5 % Red Cell Distribution Width 12.3 % Platelet Count 245 TH/MM3 Mean Platelet Volume 7.3 FL Neutrophils (%) (Auto) 92.5 % Lymphocytes (%) (Auto) 5.0 % Monocytes (%) (Auto) 2.5 % Eosinophils (%) (Auto) 0.0 % Basophils (%) (Auto) 0.0 % Neutrophils # (Auto) 16.5 TH/MM3 Lymphocytes # (Auto) 0.9 TH/MM3 Monocytes # (Auto) 0.4 TH/MM3 Eosinophils # (Auto) 0.0 TH/MM3 Basophils # (Auto) 0.0 TH/MM3 CBC Comment DIFF FINAL Differential Comment Blood Urea Nitrogen 15 MG/DL Creatinine 0.99 MG/DL Random Glucose 190 MG/DL Total Protein 6.7 GM/DL Albumin 3.1 GM/DL Calcium Level 8.7 MG/DL Phosphorus Level 2.3 MG/DL Magnesium Level 2.0 MG/DL Alkaline Phosphatase 78 U/L Aspartate Amino Transf (AST/SGOT) 18 U/L Alanine Aminotransferase (ALT/SGPT) 16 U/L Total Bilirubin 0.2 MG/DL Sodium Level 136 MEQ/L Potassium Level 3.4 MEQ/L Chloride Level 102 MEQ/L Carbon Dioxide Level 24.4 MEQ/L Anion Gap 10 MEQ/L Estimat Glomerular Filtration Rate 78 ML/MIN Free Thyroxine 1.08 NG/DL Thyroid Stimulating Hormone 3rd Gen 0.268 uIU/ML Imaging Last Impressions Chest X-Ray 10/26/17 1600 Signed Impressions: Service Date/Time: Thursday, October 26, 2017 16:20 - CONCLUSION: Marked hyperinflation with postsurgical changes on the right otherwise negative. Lawrence Dill MD FACR Objective Remarks GENERAL: He is awake alert and oriented 3 talkative and cooperative little disheveled SKIN: Warm and dry. HEAD: Atraumatic. Normocephalic. EYES: Pupils equal and round. No scleral icterus. No injection or drainage. Extraocular muscles intact wearing glasses ENT: No nasal bleeding or discharge. Mucous membranes pink and moist. Tongue is midline NECK: Trachea midline. No JVD. Supple CARDIOVASCULAR: Regular rate and rhythm. S1 and S2 no S3 or S4 RESPIRATORY: No accessory muscle use. Rhonchi and wheezes bilaterally throughout all schneider. Breath sounds equal bilaterally. GASTROINTESTINAL: Abdomen soft, non-tender, nondistended. Hepatic and splenic margins not palpable. MUSCULOSKELETAL: Extremities without clubbing, cyanosis, or edema. No obvious deformities. NEUROLOGICAL: Awake and alert. No obvious cranial nerve deficits. Motor grossly within normal limits. 4 out of 5 muscle strength in the arms and legs. Normal speech. PSYCHIATRIC: Appropriate mood and affect; insight and judgment normal. Procedures NONE Medications and IVs Current Medications Methylprednisolone Sodium Succinate (SoluMEDROL INJ) 125 mg ONCE ONCE IV PUSH Last administered on 10/26/17at 16:41; Start 10/26/17 at 16:45; Stop 10/26/17 at 16: 46; Status DC Albuterol/ Ipratropium (Duoneb Neb) 1 ampule Q15M INH Last administered on at 16:51; Start 10/26/17 at 16:45; Stop 10/26/17 at 17:01; Status DC Albuterol/ Ipratropium (Duoneb Neb) 1 ampule Q15M INH Last administered on at 17:35; Start 10/26/17 at 17:15; Stop 10/26/17 at 17:31; Status DC Albuterol/ Ipratropium (Duoneb Neb) 1 ampule Q15M INH Last administered on at 18:19; Start 10/26/17 at 18:00; Stop 10/26/17 at 18:16; Status DC Oseltamivir Phosphate (Tamiflu) 75 mg ONCE ONCE PO Last administered on 18:45; Start 10/26/17 at 18:00; Stop 10/26/17 at 18:01; Status DC Aspirin (Aspirin Chew) 81 mg DAILY CHEW Last administered on 10/28/17at 09:29; Start 10/27/17 at 09:00 Budesonide/ Formoterol Fumarate (Symbicort 80-4.5 Mcg Inh) 2 puff Q12HR INH ; Start 10/26/17 at 21:00; Stop 10/26/17 at 21:00; Status DC Trazodone HCl (Desyrel) 100 mg HS PO Last administered on 10/27/17at 21:06; Start 10/26/17 at 21:00 Diltiazem HCl (Cardizem Cd) 120 mg DAILY PO Last administered on 10/28/17at 09: 29; Start 10/27/17 at 09:00 Sodium Chloride (NS Flush) 2 ml UNSCH PRN IV FLUSH FLUSH AFTER USING IV ACCESS Last administered on 10/27/17at 06:39; Start 10/26/17 at 18:30; Stop 10/28/17 at 12:05; Status DC Sodium Chloride (NS Flush) 2 ml BID IV FLUSH Last administered on 10/28/17at 09: 30; Start 10/26/17 at 21:00; Stop 10/28/17 at 12:05; Status DC Acetaminophen (Tylenol) 650 mg Q4H PRN PO TEMP > 100.4; Start 10/26/17 at 18:30 Ondansetron HCl (Zofran Inj) 4 mg Q6H PRN IVP NAUSEA OR VOMITING; Start at 18:30 Naloxone HCl (Narcan Inj) 0.4 mg UNSCH PRN IV PUSH SEE LABEL COMMENTS; Start at 18:30 Sennosides (Senokot) 17.2 mg Q12H PRN PO Moderate constipation; Start 10/26/17 at 18:30 Bisacodyl (Dulcolax Supp) 10 mg DAILY PRN RECTAL SEVERE CONSITIPATION; Start at 18:30 Lactulose (Lactulose Liq) 30 ml DAILY PRN PO SEVERE CONSITIPATION; Start at 18:30 Methylprednisolone Sodium Succinate (SoluMEDROL INJ) 40 mg Q6HR IV PUSH Last administered on 10/28/17at 05:51; Start 10/27/17 at 00:00 Albuterol/ Ipratropium (Duoneb Neb) 1 ampule Q4HR WHILE AWAKE NEB NEB Last administered on 10/28/17at 11:37; Start 10/26/17 at 20:00 Albuterol/ Ipratropium (Duoneb Neb) 1 ampule Q2HR NEB PRN NEB SOB/WHEEZING Last administered on 10/28/17at 06:23; Start 10/26/17 at 19:00 Guaifenesin (Mucinex Er) 1,200 mg BID PO Last administered on 10/28/17at 09:30; Start 10/26/17 at 21:00 Budesonide/ Formoterol Fumarate (Symbicort 160-4.5 Mcg Inh) 2 puff Q12HR INH Last administered on 10/28/17at 09:30; Start 10/26/17 at 21:00 Sodium Chloride (NS Flush) 2 ml UNSCH PRN IV FLUSH FLUSH AFTER USING IV ACCESS ; Start 10/26/17 at 19:00 Sodium Chloride (NS Flush) 2 ml BID IV FLUSH ; Start 10/26/17 at 21:00 Acetaminophen (Tylenol) 650 mg Q6H PRN PO FEVER/PAIN SCALE 1 TO 2; Start at 19:00 Acetaminophen/ Hydrocodone Bitart (Balaton 5-325 Mg) 1 tab Q4H PRN PO PAIN SCALE 3 TO 5; Start 10/26/17 at 19:00 Morphine Sulfate (Morphine Inj) 2 mg Q3H PRN IV PUSH Pain 6-10.; Start 10/26/17 at 19:00 Oseltamivir Phosphate (Tamiflu) 75 mg BID PO Last administered on 10/28/17at 09: 29; Start 10/27/17 at 09:00 Levofloxacin/ Dextrose 150 ml @ 100 mls/hr Q24H IV Last administered on at 21:05; Start 10/26/17 at 21:00 Clonidine (Catapres) 0.1 mg Q4H PRN PO SBP>160, DBP>90; Start 10/27/17 at 15:30 Lorazepam (Ativan) 0.5 mg Q6H PRN PO ANXIETY Last administered on 10/27/17at 16: 39; Start 10/27/17 at 16:30 A/P Problem List: (1) COPD (chronic obstructive pulmonary disease) ICD Code: J44.9 - Chronic obstructive pulmonary disease, unspecified (2) HTN (hypertension) ICD Code: I10 - Essential (primary) hypertension (3) Influenza A ICD Code: J10.1 - Influenza due to other identified influenza virus with other respiratory manifestations (4) A-fib ICD Code: I48.91 - Unspecified atrial fibrillation (5) Tobacco abuse ICD Code: Z72.0 - Tobacco use Assessment and Plan 1. COPD: Chronic Respiratory Failure w/ Acute Exacerbation. Severe. + wheezing on exam. O2 sat 90% on RA on arrival, currently 96% on 4L NC. CXR w/ marked hyperinflation otherwise negative, images reviewed by me. Continue The soluMedrol, DuoNeb q4h and q2h prn, Symbicort, Mucinex. Incentive spirometry- REMAINS VERY SOB 2. Influenza A: Flu+, reports subjective fever/chills. S/p Tamiflu, will continue w/ Tamiflu bid. IVF for hydration. 3. HTN: Uncontrolled. BP 170's on arrival, resume home medications, monitor BP, antihypertensives as needed. 4. A-fib: Chronic. Rate controlled. Resume home Cardizem and ASA. 5. Tobacco Abuse: Pt counselled. NicoDerm prn if needed. 6. DVT Prophylaxis: SCD/Teds. 7. Social work for d/c planning as needed. 8. Case discussed w/ ER physician at length, labs/records/imaging reviewed We'll get a.m. labs Physical therapy and occupational therapy to eval and treat Case management consult Smoking cessation Add Catapres when necessary for hypertension Discharge Planning Pending improvement--NOT IMPROVED Lawrence Cunha DO Oct 28, 2017 12:53
[2017-10-28 13:08] LABS: HEMOGLOBIN A1C 5.8 % (4.3-6.0)
[2017-10-28] MEDS: traZODone HCL 100 MG TAB PO SCH (22:44)
[2017-10-28] MEDS: LEVOFLOXACIN 750 MG PREMIX INJ 150 ML IV SCH (22:44)
[2017-10-29] VITALS (8 sets, daily range): BP systolic 105–142; BP diastolic 60–76; PULSE 69–111; RESP 18–19; TEMP 97.6–98.7; O2SAT 94–98
[2017-10-29] MEDS: methylPREDNISolone SOD SUCC 40 MG/1 ML VIAL IV PUSH SCH ×4 (00:46→18:01)
[2017-10-29] MEDS: RESP: ALBUTEROL 2.5 MG/IPRATROPIUM 0.5 MG NEB (SCH) NEB ×4 (07:48→21:09)
[2017-10-29 08:30] LABS: BASOPHIL % 0.2 % (0.0-2.0); HEMATOCRIT 38.9 % (39.0-51.0); HEMOGLOBIN 13.4 GM/DL (13.0-17.0); LYMPH % 8.4 % (9.0-44.0); LYMPHOCYTE # 1.3 TH/MM3 (1.0-4.8); MEAN CELL VOLUME 90.6 FL (80.0-100.0); MEAN CORPUSCULAR HEMOGLOBIN 31.3 PG (27.0-34.0); MEAN CORPUSCULAR HGB CONC 34.6 % (32.0-36.0); MEAN PLATELET VOLUME 7.3 FL (7.0-11.0); MONO % 4.1 % (0.0-8.0); MONOCYTE # 0.7 TH/MM3 (0-0.9); NEUT % 87.3 % (16.0-70.0); PLATELET COUNT 280 TH/MM3 (150-450); RED BLOOD COUNT 4.29 MIL/MM3 (4.50-5.90); RED CELL DISTRIBUTION WIDTH 12.4 % (11.6-17.2)
[2017-10-29 08:49] LABS: AST (GOT) 20 U/L (15-37); BICARBONATE 24.5 MEQ/L (21.0-32.0); BLOOD UREA NITROGEN 16 MG/DL (7-18); CALCIUM 8.8 MG/DL (8.5-10.1); CHLORIDE 103 MEQ/L (98-107); CREATININE 0.93 MG/DL (0.60-1.30); GLOMERULAR FILTRATION RATE 84 ML/MIN (>89); GLUCOSE,RANDOM 173 MG/DL (74-106); MAGNESIUM 2.1 MG/DL (1.5-2.5); SODIUM (NA) 137 MEQ/L (136-145)
[2017-10-29 08:55] LABS: ALKALINE PHOSPHATASE 75 U/L (45-117); ALT (GPT) 19 U/L (12-78); TOTAL BILIRUBIN ADULT 0.2 MG/DL (0.2-1.0); TOTAL PROTEIN 6.7 GM/DL (6.4-8.2)
[2017-10-29] MEDS: OSELTAMIVIR PHOSPHATE 75 MG CAP PO SCH ×2 (08:55→21:19)
[2017-10-29] MEDS: ASPIRIN 81 MG CHEW TAB CHEW SCH (08:55)
[2017-10-29] MEDS: DILTIAZEM-CD 120 MG CAP ER PO SCH (08:55)
[2017-10-29] MEDS: BUDESONIDE-FORMOTEROL 160/4.5 MCG INHALER INH SCH ×2 (08:56→21:20)
[2017-10-29] MEDS: guaiFENesin E.R. 600 MG TAB PO SCH ×2 (08:56→21:19)
[2017-10-29] MEDS: SODIUM CHLORIDE 0.9% FLUSH 10 ML FLUSH IV FLUSH SCH ×2 (08:56→21:21)
[2017-10-29] MEDS ORDERED: PANT20TA2 PO (12:08)
[2017-10-29] MEDS ORDERED: POTASSIUM PHOSPHATE/SODIUM PHOSPHATE 250 MG TAB PO ONE (13:45)
--- NOTE | 2017-10-29 13:48 | HHI.PR ---
Subjective Remarks This is a 57-year-old male with a PMH of A. fib, HTN, COPD, h/o Lung CA and Tobacco Abuse who presented to the ER with complaints of SOB and cough in addition to subjective fevers/chills x2-3 days. States he's been using his home Albuterol Neb w/ no significant relief. Denies chest pain or sick contacts. SOB is intermittent, moderate, worse w/ exertion. On arrival, BP 135 /93, HR 127, O2 sat 90% on RA, Temp 99.4. WBC century unremarkable. Chemistry essentially unremarkable. Troponin negative. CXR with marked hyperinflation. Influenza A+. +wheezing on exam. S/p Solu-Medrol, Tamiflu, Rocephin/Zithro in ER. 10/29 Patient seen this morning around 11 AM. Reports that shortness of breath has not improved yet. Denies any chest pain. Denies any nausea or vomiting. Objective Vital Signs Date Time Temp Pulse Resp B/P (MAP) Pulse Ox O2 Delivery O2 Flow Rate FiO2 10/29/17 12:00 97.6 71 19 142/67 (92) 96 10/29/17 08:00 97.8 71 19 115/71 (86) 97 10/29/17 08:00 87 10/29/17 07:52 97 Nasal Cannula 3.00 10/29/17 04:37 97.8 77 18 105/60 (75) 96 10/29/17 04:09 111 10/28/17 23:39 68 10/28/17 20:34 98.3 104 18 120/64 (82) 96 10/28/17 19:50 92 10/28/17 19:09 97 Nasal Cannula 3.00 10/28/17 16:30 98.2 68 18 110/58 (75) 96 10/28/17 16:30 90 I/O 10/28/17 10/28/17 10/28/17 10/29/17 10/29/17 10/29/17 07:00 15:00 23:00 07:00 15:00 23:00 Intake Total 750 ml Output Total 600 ml Balance 150 ml Intake Oral 750 ml Output Urine Total 600 ml Result Diagram: 10/29/17 0759 10/29/17 0759 Objective Remarks GENERAL: Patient sitting up in bed. Appears comfortable. speaking somewhat limited by breathing . SKIN: Warm and dry. HEAD: Normocephalic. EYES: No scleral icterus. No injection or drainage. NECK: Supple, trachea midline. No JVD. CARDIOVASCULAR: Regular rate and rhythm without murmurs, gallops, or rubs. RESPIRATORY: Breath sounds equal bilaterally. No accessory muscle use. GASTROINTESTINAL: Abdomen soft, non-tender, nondistended. MUSCULOSKELETAL: No cyanosis, or edema. BACK: Nontender without obvious deformity. No CVA tenderness. A/P Assessment and Plan //COPD: Chronic Respiratory Failure w/ Acute Exacerbation. Severe. +wheezing on exam. O2 sat 90% on RA on arrival, currently 96% on 4L NC. CXR w/ marked hyperinflation otherwise negative, images reviewed by me. Continue The soluMedrol, DuoNeb q4h and q2h prn, Symbicort, Mucinex. Incentive spirometry = Patient remains short of breath. // Influenza A: Flu+, reports subjective fever/chills. S/p Tamiflu, will continue w/ Tamiflu bid. IVF for hydration. = Continue current management. Awaiting improvement. // HTN: Uncontrolled. BP 170's on arrival, resume home medications, monitor BP , antihypertensives as needed. //A-fib: Chronic. Rate controlled. Resume home Cardizem and ASA. //GERD. Continue PPI. //Tobacco Abuse: Pt counselled. NicoDerm prn if needed. //Laxatives. //Leukocytosis. Likely secondary to IV steroids. Continue to monitor. //DVT Prophylaxis: SCD/Teds. Discharge Planning Pending improvement Sonny Fuentes MD Oct 29, 2017 13:48
[2017-10-29] MEDS ORDERED: PANTOPRAZOLE SOD 20 MG DELAYED RELEASE TAB PO ONE (14:30)
[2017-10-29] MEDS ORDERED: SOFO1TAB (16:56)
[2017-10-29] MEDS: LEVOFLOXACIN 750 MG PREMIX INJ 150 ML IV SCH (21:18)
[2017-10-29] MEDS: traZODone HCL 100 MG TAB PO SCH (21:19)
[2017-10-30] VITALS (8 sets, daily range): BP systolic 116–134; BP diastolic 58–77; PULSE 59–83; RESP 16–20; TEMP 97.8–98.1; O2SAT 93–97
[2017-10-30] MEDS: RESP: ALBUTEROL 2.5 MG/IPRATROPIUM 0.5 MG NEB (PRN) NEB (05:51)
[2017-10-30] MEDS: methylPREDNISolone SOD SUCC 40 MG/1 ML VIAL IV PUSH SCH ×3 (06:00→12:55)
[2017-10-30] MEDS: RESP: ALBUTEROL 2.5 MG/IPRATROPIUM 0.5 MG NEB (SCH) NEB ×3 (07:20→16:48)
[2017-10-30] MEDS: PANTOPRAZOLE SOD 20 MG DELAYED RELEASE TAB PO SCH (08:57)
[2017-10-30] MEDS: ASPIRIN 81 MG CHEW TAB CHEW SCH (08:58)
[2017-10-30] MEDS: OSELTAMIVIR PHOSPHATE 75 MG CAP PO SCH ×2 (08:58→21:00)
[2017-10-30] MEDS: BUDESONIDE-FORMOTEROL 160/4.5 MCG INHALER INH SCH ×2 (08:58→21:00)
[2017-10-30] MEDS: SODIUM CHLORIDE 0.9% FLUSH 10 ML FLUSH IV FLUSH SCH ×2 (08:58→21:00)
[2017-10-30] MEDS: guaiFENesin E.R. 600 MG TAB PO SCH ×2 (08:58→21:00)
[2017-10-30] MEDS: DILTIAZEM-CD 120 MG CAP ER PO SCH (08:58)
--- NOTE | 2017-10-30 14:02 | HHI.PR ---
Subjective Remarks This is a 57-year-old male with a PMH of A. fib, HTN, COPD, h/o Lung CA and Tobacco Abuse who presented to the ER with complaints of SOB and cough in addition to subjective fevers/chills x2-3 days. States he's been using his home Albuterol Neb w/ no significant relief. Denies chest pain or sick contacts. SOB is intermittent, moderate, worse w/ exertion. On arrival, BP 135 /93, HR 127, O2 sat 90% on RA, Temp 99.4. WBC century unremarkable. Chemistry essentially unremarkable. Troponin negative. CXR with marked hyperinflation. Influenza A+. +wheezing on exam. S/p Solu-Medrol, Tamiflu, Rocephin/Zithro in ER. 10/29 Patient seen this morning around 11 AM. Reports that shortness of breath has not improved yet. Denies any chest pain. Denies any nausea or vomiting. 10/30Patient says he is still short of breath today. Denies any chest pain. Does not feel like he can go home today. Objective Vital Signs Date Time Temp Pulse Resp B/P (MAP) Pulse Ox O2 Delivery O2 Flow Rate FiO2 10/30/17 12:19 97.9 70 20 134/76 (95) 95 10/30/17 08:45 97.8 67 20 125/71 (89) 97 10/30/17 07:22 93 Nasal Cannula 2.00 10/30/17 04:06 98.1 59 17 116/69 (85) 96 10/30/17 00:14 97.8 83 16 120/58 (78) 96 10/29/17 21:28 98.7 69 18 127/ 94 10/29/17 21:10 98 Nasal Cannula 2.00 10/29/17 16:00 98.3 78 18 127/76 (93) 95 I/O 10/29/17 10/29/17 10/29/17 10/30/17 10/30/17 10/30/17 06:59 14:59 22:59 06:59 14:59 22:59 Intake Total 1630 ml Output Total 1200 ml Balance 430 ml Intake Oral 1630 ml Output Urine Total 1200 ml Result Diagram: 10/29/17 0759 10/29/17 0759 Objective Remarks GENERAL: Patient sitting up in bed. Appears comfortable. breathing better today. SKIN: Warm and dry. HEAD: Normocephalic. EYES: No scleral icterus. No injection or drainage. NECK: Supple, trachea midline. No JVD. CARDIOVASCULAR: Regular rate and rhythm without murmurs, gallops, or rubs. RESPIRATORY: Breath sounds equal bilaterally. No accessory muscle use. GASTROINTESTINAL: Abdomen soft, non-tender, nondistended. MUSCULOSKELETAL: No cyanosis, or edema. BACK: Nontender without obvious deformity. No CVA tenderness. A/P Assessment and Plan //COPD: Chronic Respiratory Failure w/ Acute Exacerbation. Severe. +wheezing on exam. O2 sat 90% on RA on arrival, currently 96% on 4L NC. CXR w/ marked hyperinflation otherwise negative, images reviewed by me. Continue The soluMedrol, DuoNeb q4h and q2h prn, Symbicort, Mucinex. Incentive spirometry = Patient remains short of breath. = 10/30. Patient remains short of breath. Continue supportive care. Expect improvement from influenza. // Influenza A: Flu+, reports subjective fever/chills. S/p Tamiflu, will continue w/ Tamiflu bid. IVF for hydration. = Continue current management. Awaiting improvement. // HTN: Uncontrolled. BP 170's on arrival, resume home medications, monitor BP , antihypertensives as needed. //A-fib: Chronic. Rate controlled. Resume home Cardizem and ASA. //GERD. Continue PPI. //Hepatitis C. Chronic. Continue home medication. //Tobacco Abuse: Pt counselled. NicoDerm prn if needed. //Laxatives. //Leukocytosis. Likely secondary to IV steroids. Continue to monitor. //DVT Prophylaxis: SCD/Teds. Discharge Planning Pending improvement Sonny Fuentes MD Oct 30, 2017 14:02
[2017-10-30] MEDS: traZODone HCL 100 MG TAB PO SCH (21:00)
[2017-10-30] MEDS ORDERED: methylPREDNISolone SOD SUCC 40 MG/1 ML VIAL IV PUSH SCH (21:00)
[2017-10-30] MEDS: LEVOFLOXACIN 750 MG PREMIX INJ 150 ML IV SCH (21:00)
[2017-10-30] MEDS: ACETAMINOPHEN/HYDROcodone 325 MG/5 MG TAB PO PRN (22:00)
[2017-10-31] VITALS (7 sets, daily range): BP systolic 117–135; BP diastolic 68–84; PULSE 65–88; RESP 18; TEMP 97.9–98.4; O2SAT 93–96
[2017-10-31] MEDS: ACETAMINOPHEN/HYDROcodone 325 MG/5 MG TAB PO PRN (03:01)
[2017-10-31 06:22] LABS: AUTOMATED NEUTROPHIL # 11.5 TH/MM3 (1.8-7.7); BASOPHIL % 0.2 % (0.0-2.0); HEMATOCRIT 38.9 % (39.0-51.0); HEMOGLOBIN 13.5 GM/DL (13.0-17.0); LYMPH % 11.5 % (9.0-44.0); LYMPHOCYTE # 1.6 TH/MM3 (1.0-4.8); MEAN CELL VOLUME 90.2 FL (80.0-100.0); MEAN CORPUSCULAR HEMOGLOBIN 31.3 PG (27.0-34.0); MEAN CORPUSCULAR HGB CONC 34.7 % (32.0-36.0); MEAN PLATELET VOLUME 7.5 FL (7.0-11.0); MONO % 6.1 % (0.0-8.0); MONOCYTE # 0.9 TH/MM3 (0-0.9); NEUT % 82.2 % (16.0-70.0); PLATELET COUNT 297 TH/MM3 (150-450); RED BLOOD COUNT 4.31 MIL/MM3 (4.50-5.90); RED CELL DISTRIBUTION WIDTH 12.6 % (11.6-17.2)
[2017-10-31 06:53] LABS: ALBUMIN 2.8 GM/DL (3.4-5.0); CALCIUM 8.3 MG/DL (8.5-10.1); CREATININE 0.91 MG/DL (0.60-1.30); MAGNESIUM 2.3 MG/DL (1.5-2.5); PHOSPHORUS 1.9 MG/DL (2.5-4.9)
[2017-10-31 07:55] LABS: LYMPHOCYTES 15 % (9-44); METAMYELOCYTES 2 % (0-1); MONOCYTES 2 % (0-8); NEUTROPHIL # MANUAL DIFF 11.6 TH/MM3 (1.8-7.7); POLYS (SEG NEUTROPHILS) 81 % (16-70)
--- NOTE | 2017-10-31 08:40 | HHI.PR ---
Subjective Remarks This is a 57-year-old male with a PMH of A. fib, HTN, COPD, h/o Lung CA and Tobacco Abuse who presented to the ER with complaints of SOB and cough in addition to subjective fevers/chills x2-3 days. States he's been using his home Albuterol Neb w/ no significant relief. Denies chest pain or sick contacts. SOB is intermittent, moderate, worse w/ exertion. On arrival, BP 135 /93, HR 127, O2 sat 90% on RA, Temp 99.4. WBC century unremarkable. Chemistry essentially unremarkable. Troponin negative. CXR with marked hyperinflation. Influenza A+. +wheezing on exam. S/p Solu-Medrol, Tamiflu, Rocephin/Zithro in ER. 10/29 Patient seen this morning around 11 AM. Reports that shortness of breath has not improved yet. Denies any chest pain. Denies any nausea or vomiting. 10/30Patient says he is still short of breath today. Denies any chest pain. Does not feel like he can go home today. 10/31. Patient reports still feeling shortness of breath with exertion. Like us to consult pulmonology. Patient also reports that he lives with a roommate who keeps air-conditioning cold. Testes does not want to go back home with the roommate Objective Vital Signs Date Time Temp Pulse Resp B/P (MAP) Pulse Ox O2 Delivery O2 Flow Rate FiO2 10/31/17 04:13 98.0 74 18 117/71 (86) 94 10/31/17 04:01 18 10/30/17 23:52 98.0 62 18 118/70 (86) 97 10/30/17 20:15 98.1 81 18 122/71 (88) 96 10/30/17 20:00 Nasal Cannula 2.00 10/30/17 16:42 98.1 71 18 122/77 (92) 97 10/30/17 12:19 97.9 70 20 134/76 (95) 95 10/30/17 08:45 97.8 67 20 125/71 (89) 97 I/O 10/30/17 10/30/17 10/30/17 10/31/17 10/31/17 10/31/17 06:59 14:59 22:59 06:59 14:59 22:59 Intake Total 800 ml Balance 800 ml Intake Oral 800 ml Result Diagram: 10/31/17 0507 10/31/17 0507 Objective Remarks GENERAL: Patient sitting up in bed. Appears comfortable. breathing better today. Alert and oriented 3. SKIN: Warm and dry. HEAD: Normocephalic. EYES: No scleral icterus. No injection or drainage. NECK: Supple, trachea midline. No JVD. CARDIOVASCULAR: Regular rate and rhythm without murmurs, gallops, or rubs. RESPIRATORY: Breath sounds equal bilaterally. No accessory muscle use. GASTROINTESTINAL: Abdomen soft, non-tender, nondistended. MUSCULOSKELETAL: No cyanosis, or edema. BACK: Nontender without obvious deformity. No CVA tenderness. A/P Assessment and Plan //COPD: Chronic Respiratory Failure w/ Acute Exacerbation. Severe. +wheezing on exam. O2 sat 90% on RA on arrival, currently 96% on 4L NC. CXR w/ marked hyperinflation otherwise negative, images reviewed by me. Continue The soluMedrol, DuoNeb q4h and q2h prn, Symbicort, Mucinex. Incentive spirometry = Patient remains short of breath. = 10/30. Patient remains short of breath. Continue supportive care. Expect improvement from influenza. = 10/31. Would have hoped for further improvement. Consult pulmonology continue steroids, duo nebs. // Influenza A: Flu+, reports subjective fever/chills. S/p Tamiflu, will continue w/ Tamiflu bid. IVF for hydration. = Continue current management. Continue awaiting improvement. // HTN: Uncontrolled. BP 170's on arrival, resume home medications, monitor BP , antihypertensives as needed. //A-fib: Chronic. Rate controlled. Resume home Cardizem and ASA. //GERD. Continue PPI. //Hepatitis C. Chronic. Continue home medication. //Tobacco Abuse: Pt counselled. NicoDerm prn if needed. //Laxatives. //Leukocytosis. Likely secondary to IV steroids. Continue to monitor. //Hypophosphatemia. 1.9. Replace. //DVT Prophylaxis: SCD/Teds. Discharge Planning Pending improvement Sonny Fuentes MD Oct 31, 2017 08:40
[2017-10-31] MEDS ORDERED: VELPATASVIR PO SCH (09:00)
[2017-10-31] MEDS ORDERED: POTASSIUM PHOSPHATE INJ 15 MMOL in SODIUM CHLORIDE 0.9% INJ 150 ML IV ONE (09:00)
[2017-10-31] MEDS ORDERED: SOFOSBUVIR PO SCH (09:00)
[2017-10-31] MEDS: ASPIRIN 81 MG CHEW TAB CHEW SCH (10:54)
[2017-10-31] MEDS: OSELTAMIVIR PHOSPHATE 75 MG CAP PO SCH ×2 (10:54→20:48)
[2017-10-31] MEDS: predniSONE 50 MG TAB PO SCH (10:55)
[2017-10-31] MEDS: guaiFENesin E.R. 600 MG TAB PO SCH ×2 (10:55→20:47)
[2017-10-31] MEDS: BUDESONIDE-FORMOTEROL 160/4.5 MCG INHALER INH SCH ×2 (10:56→20:39)
[2017-10-31] MEDS: PANTOPRAZOLE SOD 20 MG DELAYED RELEASE TAB PO SCH (10:56)
[2017-10-31] MEDS: SODIUM CHLORIDE 0.9% FLUSH 10 ML FLUSH IV FLUSH SCH ×2 (10:57→20:46)
[2017-10-31] MEDS: RESP: ALBUTEROL 2.5 MG/IPRATROPIUM 0.5 MG NEB (PRN) NEB (11:00)
--- NOTE | 2017-10-31 13:55 | MB ---
cc: Rachel NUÑEZ DATE OF CONSULTATION 10/31/2017 HISTORY OF PRESENT ILLNESS Mr. Combs is a 57-year-old white male with a known history of COPD and also a prior lung cancer, who continues to smoke up to the time of admission. He presented with increasing shortness of breath, cough and congestion. Initial evaluation included influenza nasal wash which was positive for influenza-A and he was begun on Tamiflu. He was also started on antibiotics in light of the underlying COPD and a white count as high as 17,000. His chest x-ray revealed chronic changes and some postsurgical changes on the right but no acute infiltrates. He has done well, remained afebrile, but he continues to have problems with shortness of breath. He was smoking about a pack a day up to the time of admission. He has had no purulent sputum or hemoptysis. No chest pain. Cardiology has seen him though for a right bundle branch block. PAST MEDICAL HISTORY 1. Hypertension. 2. Atrial fibrillation. 3. Right lung resection for lung cancer. ALLERGIES None known. MEDICATIONS Reviewed and recorded in the EMR. SOCIAL HISTORY Does drink alcohol regularly. Continues to smoke a pack per day. No other unusual exposures. PHYSICAL EXAMINATION VITAL SIGNS: Temperature 98 degrees, blood pressure 135/84, pulse 70, respirations 18 nonlabored at rest. 2 liter sat 96%. HEENT: Sclera anicteric. NECK: Neck veins are flat. No adenopathy in the neck or supraclavicular region. CHEST: Diminished with some minimal wheezing but no congestion or rhonchi. Regular rhythm. No harsh murmur. No audible S3 and no edema or cyanosis. DISCUSSION Mr. Combs presents with acute exacerbation of his underlying COPD. He has influenza. Complete the course of Tamiflu. May be give him 5 days of Levaquin. He has already been switched over to oral prednisone which could be tapered over the next 5-10 days. I have emphasized to him the importance of stopping smoking which he understands and will try to quit. MD RADHA Baca/KVNG /1:24 PM /1:45 PM
[2017-10-31] MEDS: DILTIAZEM-CD 120 MG CAP ER PO SCH (14:11)
[2017-10-31] MEDS: RESP: ALBUTEROL 2.5 MG/IPRATROPIUM 0.5 MG NEB (SCH) INH ×2 (14:45→19:24)
--- NOTE | 2017-10-31 15:25 | MB ---
cc: ROS MÉNDEZ DATE OF CONSULTATION 10/31/2017 HISTORY OF PRESENT ILLNESS Mr. Combs is a 57-year-old white male with a history of COPD, lung cancer and smoking. He presented with increased shortness of breath, cough and nasal congestion. He was diagnosed with influenza-A and was started on Tamiflu. He was also started on antibiotics. He denies any chest pain. He was found to have a new right bundle branch block on his EKG. PAST MEDICAL HISTORY 1. Hypertension. 2. Right lung resection for lung cancer. 3. History of atrial fibrillation. ALLERGIES None. MEDICATIONS 1. Epclusa. 2. Albuterol. 3. Diltiazem. 4. Aspirin. 5. Trazodone. 6. Symbicort. 7. Pantoprazole. SOCIAL HISTORY The patient continues to smoke one pack a day. He has a history of heavy alcohol use. FAMILY HISTORY Negative for heart disease. REVIEW OF SYSTEMS Otherwise negative. PHYSICAL EXAMINATION VITAL SIGNS: Blood pressure 135/84, pulse 75 and regular. HEENT: Negative. NECK: 2+ carotid upstrokes. No bruits. LUNGS: A few wheezes. Decreased breath sounds. HEART: Regular with no murmur or gallop. ABDOMEN: Soft. No bruits. EXTREMITIES: With trace edema, 1+ pulses. NEUROLOGIC: Grossly nonfocal. EKG EKG was reviewed and showed normal sinus rhythm, first-degree AV block, indeterminate axis, right bundle branch block. LABORATORY Hemoglobin 13.5. Potassium 3.8. Creatinine 0.9. Troponin negative x2. CK 197 and 150. TSH 0.268. DIAGNOSIS 1. COPD exacerbation. 2. Influenza-A. 3. Paroxysmal atrial fibrillation. 4. Hypertension. 5. New onset right bundle branch block. 6. Status post right lung resection for cancer. DISPOSITION Mr. Combs will be monitored on telemetry. He will be treated for his COPD exacerbation and influenza. Will obtain an echocardiogram to evaluate his left ventricular function. He has not had any angina. I will follow him for cardiology during his hospitalization. He will then follow up with his primary pull out operator after discharge. MD SUMMER Mak/KVNG /2:26 PM /3:05 PM
[2017-10-31] MEDS: LEVOFLOXACIN 750 MG PREMIX INJ 150 ML IV SCH (20:45)
[2017-10-31] MEDS: traZODone HCL 100 MG TAB PO SCH (20:47)
[2017-10-31] MEDS: LORazepam 0.5 MG TAB PO PRN (22:26)
[2017-11-01] VITALS: BP 128/68; PULSE 68; PULSE 79; RESP 18; TEMP 98; O2SAT 97
[2017-11-01 04:32] VITALS: BP 120/77; PULSE 71; RESP 18; TEMP 98.1; O2SAT 93
[2017-11-01] MEDS: RESP: ALBUTEROL 2.5 MG/IPRATROPIUM 0.5 MG NEB (SCH) INH ×2 (07:35→12:42)
[2017-11-01 07:36] VITALS: O2SAT 96
[2017-11-01 08:00] VITALS: PULSE 92
[2017-11-01] MEDS: OSELTAMIVIR PHOSPHATE 75 MG CAP PO SCH (08:11)
[2017-11-01] MEDS: PANTOPRAZOLE SOD 20 MG DELAYED RELEASE TAB PO SCH (08:11)
[2017-11-01] MEDS: predniSONE 50 MG TAB PO SCH (08:11)
[2017-11-01] MEDS: ASPIRIN 81 MG CHEW TAB CHEW SCH (08:11)
[2017-11-01] MEDS: guaiFENesin E.R. 600 MG TAB PO SCH (08:11)
[2017-11-01] MEDS: SODIUM CHLORIDE 0.9% FLUSH 10 ML FLUSH IV FLUSH SCH (08:12)
[2017-11-01] MEDS: BUDESONIDE-FORMOTEROL 160/4.5 MCG INHALER INH SCH (08:12)
[2017-11-01 08:55] VITALS: BP 118/80; PULSE 84; RESP 18; TEMP 98.3; O2SAT 95
[2017-11-01 11:38] VITALS: BP 121/77; PULSE 81; RESP 21; TEMP 97.8; O2SAT 93
[2017-11-01] MEDS: DILTIAZEM-CD 120 MG CAP ER PO SCH (14:34)
--- NOTE | 2017-11-01 16:02 | HHI.PR ---
Subjective Remarks This is a 57-year-old male with a PMH of A. fib, HTN, COPD, h/o Lung CA and Tobacco Abuse who presented to the ER with complaints of SOB and cough in addition to subjective fevers/chills x2-3 days. States he's been using his home Albuterol Neb w/ no significant relief. Denies chest pain or sick contacts. SOB is intermittent, moderate, worse w/ exertion. On arrival, BP 135 /93, HR 127, O2 sat 90% on RA, Temp 99.4. WBC century unremarkable. Chemistry essentially unremarkable. Troponin negative. CXR with marked hyperinflation. Influenza A+. +wheezing on exam. S/p Solu-Medrol, Tamiflu, Rocephin/Zithro in ER. 10/29 Patient seen this morning around 11 AM. Reports that shortness of breath has not improved yet. Denies any chest pain. Denies any nausea or vomiting. 10/30Patient says he is still short of breath today. Denies any chest pain. Does not feel like he can go home today. 10/31. Patient reports still feeling shortness of breath with exertion. Like us to consult pulmonology. Patient also reports that he lives with a roommate who keeps air-conditioning cold. Testes does not want to go back home with the roommate 11/01: Patient seen this morning around 10 AM. Says he feels a little better. Denies any chest pain. Reports shortness of breath is slowly improving. Feels like he might be able to go home tomorrow morning. Objective Vital Signs Date Time Temp Pulse Resp B/P (MAP) Pulse Ox O2 Delivery O2 Flow Rate FiO2 11/01/17 11:38 97.8 81 21 121/77 (92) 93 11/01/17 08:55 98.3 84 18 118/80 (93) 95 11/01/17 08:00 92 11/01/17 07:36 96 Nasal Cannula 2.00 11/01/17 04:32 98.1 71 18 120/77 (91) 93 11/01/17 00:00 79 11/01/17 00:00 98.0 68 18 128/68 (88) 97 10/31/17 22:00 98.4 65 18 118/68 (85) 96 10/31/17 19:24 94 10/31/17 16:41 97.9 88 18 135/75 (95) 93 I/O 10/31/17 10/31/17 10/31/17 11/01/17 11/01/17 11/01/17 07:00 15:00 23:00 07:00 15:00 23:00 Intake Total 750 ml Output Total 900 ml Balance -150 ml Intake Oral 500 ml IV Total 250 ml Output Urine Total 900 ml # Bowel Movements 0 Result Diagram: 10/31/17 0507 10/31/17 0507 Objective Remarks GENERAL: Patient sitting up in bed. Appears comfortable. breathing again a little better today. Alert and oriented 3. SKIN: Warm and dry. HEAD: Normocephalic. EYES: No scleral icterus. No injection or drainage. NECK: Supple, trachea midline. No JVD. CARDIOVASCULAR: Regular rate and rhythm without murmurs, gallops, or rubs. RESPIRATORY: Breath sounds equal bilaterally. No accessory muscle use. GASTROINTESTINAL: Abdomen soft, non-tender, nondistended. MUSCULOSKELETAL: No cyanosis, or edema. BACK: Nontender without obvious deformity. No CVA tenderness. A/P Assessment and Plan //COPD: Chronic Respiratory Failure w/ Acute Exacerbation. Severe. +wheezing on exam. O2 sat 90% on RA on arrival, currently 96% on 4L NC. CXR w/ marked hyperinflation otherwise negative, images reviewed by me. Continue The soluMedrol, DuoNeb q4h and q2h prn, Symbicort, Mucinex. Incentive spirometry = Patient remains short of breath. = 10/30. Patient remains short of breath. Continue supportive care. Expect improvement from influenza. = 10/31. Would have hoped for further improvement. Consult pulmonology continue steroids, duo nebs. = 11/01. Some improvement today. Plan for discharge home tomorrow after echocardiogram resulted. // Influenza A: Flu+, reports subjective fever/chills. S/p Tamiflu, will continue w/ Tamiflu bid. IVF for hydration. = Continue current management. Continue awaiting improvement. = Hopefully can discharge home tomorrow morning. // HTN: Uncontrolled. BP 170's on arrival, resume home medications, monitor BP , antihypertensives as needed. //A-fib: Chronic. Rate controlled. Resume home Cardizem and ASA. //GERD. Continue PPI. //Hepatitis C. Chronic. Continue home medication. //Tobacco Abuse: Pt counselled. NicoDerm prn if needed. //Laxatives. //Leukocytosis. Likely secondary to IV steroids. Continue to monitor. //Hypophosphatemia. 1.9. Replace yesterday. Recheck tomorrow. //DVT Prophylaxis: SCD/Teds. Discharge Planning Pending echocardiogram. Likely discharge home tomorrow morning after results of echocardiogram. Sonny Fuentes MD Nov 01, 2017 16:01
[2017-11-01] MEDS ORDERED: SYMB80AE INH (16:33)
[2017-11-01] MEDS ORDERED: MONT5CHW2 CHEW (16:33)
[2017-11-01] MEDS ORDERED: Albuterol-Ipratropium Neb INH (16:33)
[2017-11-01] MEDS ORDERED: OSEL75 PO (16:33)
[2017-11-01] MEDS ORDERED: LEVA750T9 PO (16:33)
[2017-11-01] MEDS ORDERED: PRED10 PO (16:33)
[2017-11-01] MEDS ORDERED: CLAR10CA3 PO (16:33)
[2017-11-01] MEDS ORDERED: guaiFENesin ER PO (16:33)
[2017-11-01] MEDS ORDERED: LORA-392 PO (16:33)
--- NOTE | 2017-11-01 16:44 | HHI.DS ---
Discharge Summary Admission Date Oct 28, 2017 at 12:59 Discharge Date: Nov 01, 2017 Admitting Diagnosis COPD exacerbation/influenza (1) COPD (chronic obstructive pulmonary disease) ICD Code: J44.9 - Chronic obstructive pulmonary disease, unspecified (2) HTN (hypertension) ICD Code: I10 - Essential (primary) hypertension (3) Influenza A ICD Code: J10.1 - Influenza due to other identified influenza virus with other respiratory manifestations (4) A-fib ICD Code: I48.91 - Unspecified atrial fibrillation (5) Tobacco abuse ICD Code: Z72.0 - Tobacco use Procedures NONE Brief History - From Admission This is a 57-year-old male with a PMH of A. fib, HTN, COPD, h/o Lung CA and Tobacco Abuse who presented to the ER with complaints of SOB and cough in addition to subjective fevers/chills x2-3 days. States he's been using his home Albuterol Neb w/ no significant relief. Denies chest pain or sick contacts. SOB is intermittent, moderate, worse w/ exertion. On arrival, BP 135 /93, HR 127, O2 sat 90% on RA, Temp 99.4. WBC century unremarkable. Chemistry essentially unremarkable. Troponin negative. CXR with marked hyperinflation. Influenza A+. +wheezing on exam. S/p Solu-Medrol, Tamiflu, Rocephin/Zithro in ER. CBC/BMP: 10/31/17 0507 10/31/17 0507 Significant Findings Laboratory Tests Test 10/31/17 05:07 10/31/17 12:30 White Blood Count 14.0 TH/MM3 (4.0-11.0) Red Blood Count 4.31 MIL/MM3 (4.50-5.90) Hematocrit 38.9 % (39.0-51.0) Neutrophils (%) (Auto) 82.2 % (16.0-70.0) Neutrophils # (Auto) 11.5 TH/MM3 (1.8-7.7) Neutrophils % (Manual) 81 % (16-70) Neutrophils # (Manual) 11.6 TH/MM3 (1.8-7.7) Metamyelocytes 2 % (0-1) Random Glucose 182 MG/DL (74-106) Albumin 2.8 GM/DL (3.4-5.0) Calcium Level 8.3 MG/DL (8.5-10.1) Phosphorus Level 1.9 MG/DL (2.5-4.9) Estimat Glomerular Filtration Rate 86 ML/MIN (>89) Imaging Last Impressions Chest X-Ray 10/26/17 1600 Signed Impressions: Service Date/Time: Thursday, October 26, 2017 16:20 - CONCLUSION: Marked hyperinflation with postsurgical changes on the right otherwise negative. Lawrence Dill MD FACR PE at Discharge GENERAL: He is awake alert and oriented 3 talkative and cooperative little disheveled SKIN: Warm and dry. HEAD: Atraumatic. Normocephalic. EYES: Pupils equal and round. No scleral icterus. No injection or drainage. Extraocular muscles intact wearing glasses ENT: No nasal bleeding or discharge. Mucous membranes pink and moist. Tongue is midline NECK: Trachea midline. No JVD. Supple CARDIOVASCULAR: Regular rate and rhythm. S1 and S2 no S3 or S4 RESPIRATORY: No accessory muscle use. Rhonchi and wheezes bilaterally throughout all schneider. Breath sounds equal bilaterally. GASTROINTESTINAL: Abdomen soft, non-tender, nondistended. Hepatic and splenic margins not palpable. MUSCULOSKELETAL: Extremities without clubbing, cyanosis, or edema. No obvious deformities. NEUROLOGICAL: Awake and alert. No obvious cranial nerve deficits. Motor grossly within normal limits. 4 out of 5 muscle strength in the arms and legs. Normal speech. PSYCHIATRIC: Appropriate mood and affect; insight and judgment normal. Hospital Course Chest x-ray on admission was negative. Sinus testing positive for influenza. Patient was treated for COPD exacerbation with steroids, broad-spectrum antibiotics, Tamiflu for influenza. Patient had slow improvement in shortness of breath. Pulmonology followed during admission. EKG on admission did show right bundle branch block, and due to slow improvement, cardiology was consulted. Echocardiogram pending at the time of discharge. Patient did improve on 11/01, requested discharge. Patient will need to follow-up on echocardiogram as outpatient with primary care, cardiology, pulmonology. For problem based summary from most recent progress note, please see below. //COPD: Chronic Respiratory Failure w/ Acute Exacerbation. Severe. +wheezing on exam. O2 sat 90% on RA on arrival, currently 96% on 4L NC. CXR w/ marked hyperinflation otherwise negative, images reviewed by me. Continue The soluMedrol, DuoNeb q4h and q2h prn, Symbicort, Mucinex. Incentive spirometry = Patient remains short of breath. = 10/30. Patient remains short of breath. Continue supportive care. Expect improvement from influenza. = 10/31. Would have hoped for further improvement. Consult pulmonology continue steroids, duo nebs. = 11/01. Some improvement today. Plan for discharge home tomorrow after echocardiogram resulted. // Influenza A: Flu+, reports subjective fever/chills. S/p Tamiflu, will continue w/ Tamiflu bid. IVF for hydration. = Continue current management. Continue awaiting improvement. = Hopefully can discharge home tomorrow morning. // HTN: Uncontrolled. BP 170's on arrival, resume home medications, monitor BP , antihypertensives as needed. //A-fib: Chronic. Rate controlled. Resume home Cardizem and ASA. //GERD. Continue PPI. //Hepatitis C. Chronic. Continue home medication. //Tobacco Abuse: Pt counselled. NicoDerm prn if needed. //Laxatives. //Leukocytosis. Likely secondary to IV steroids. Continue to monitor. //Hypophosphatemia. 1.9. Replace yesterday. Recheck tomorrow. //DVT Prophylaxis: SCD/Teds. Discharge Planning //Anxiety. Benzodiazepine as needed for anxiety Pending echocardiogram. Likely discharge home tomorrow morning after results of echocardiogram. Patient would like to leave hospital. Patient understands that echocardiogram is still pending. He will need to follow-up with these results as an outpatient. He denies any chest pain. Reports that shortness of breath is improving. Pt Condition on Discharge: Good Discharge Disposition: Discharge Home Discharge Time: > 30 minutes Discharge Instructions DIET: Follow Instructions for: Heart Healthy Diet Activities you can perform: Regular-No Restrictions Follow up Referrals: Cardiology - 1 Week with Constance Velez MD PCP Follow-up - 1 Week with Solitario Barrios MD Pulmonology - 1 Week with Rachel Cox MD New Medications: Levofloxacin (Levaquin) 750 Mg Tablet 750 MG PO DAILY for Infection for 3 Days, #3 TAB 0 Refills Loratadine (Claritin) 10 Mg Cap 10 MG PO DAILY for Allergy Management for 30 Days, #30 CAP 0 Refills Montelukast (Singulair) 5 Mg Chew 5 MG CHEW HS for ASTHMA, #30 TAB 0 Refills Prednisone (Prednisone) 10 Mg Tab 10 MG PO DAILY for COPD for 10 Days, #21 TAB 0 Refills Take 40mg daily for 3 days; 20mg daily for 3 days; 10mg daily for 3 days, then stop. Lorazepam (Ativan) 0.5 Mg Tab 0.5 MG PO Q6H PRN for ANXIETY, #20 TAB Oseltamivir (Tamiflu) 75 Mg Cap 75 MG PO BID for FLU for 5 Days, #10 CAP [Albuterol-Ipratropium Neb] () 1 AMPULE NEBU 1 AMPULE INH TID NEB for COPD for 30 Days [guaiFENesin ER] () 600 MG TABCR 1200 MG PO BID for 14 Days Continued Medications: Albuterol ER 12 HR (Albuterol ER 12 HR) 8 Mg Tab 8 MG PO BID for Asthma Management, #60 TAB 0 Refills Do not crush or chew. Aspirin (Aspirin) 81 Mg Chew 81 MG CHEW DAILY, TAB 0 Refills Budesonide-Formoterol Inh (Symbicort Inh) 80-4.5 Mcg/Act Aero 2 PUFF INH Q12HR for Asthma Management for 30 Days, #1 INHALER 0 Refills (This prescription has been renewed) Diltiazem (Diltiazem) 120 Mg Tab 120 MG PO DAILY for Angina, #120 TAB 0 Refills Pantoprazole (Pantoprazole) 20 Mg Tab 20 MG PO DAILY for Reflux, #30 TAB 0 Refills Sofosbuvir/Velpatasvir (Epclusa 400 mg-100 mg Tablet) 400 Mg-100 Mg Tablet DAILY Trazodone (Trazodone) 100 Mg Tab 100 MG PO HS for Control Depression, #30 TAB 0 Refills Sonny Fuentes MD Nov 01, 2017 16:44
--- NOTE | 2017-11-01 19:43 | PD.CARD.PN ---
Subjective Subjective Remarks No CP, SOB improving, no new c/o Objective Vital Signs / I&O Vital Signs Date Time Temp Pulse Resp B/P (MAP) Pulse Ox O2 Delivery O2 Flow Rate FiO2 11/01/17 11:38 97.8 81 21 121/77 (92) 93 11/01/17 08:55 98.3 84 18 118/80 (93) 95 11/01/17 08:00 92 11/01/17 07:36 96 Nasal Cannula 2.00 11/01/17 04:32 98.1 71 18 120/77 (91) 93 11/01/17 00:00 79 11/01/17 00:00 98.0 68 18 128/68 (88) 97 10/31/17 22:00 98.4 65 18 118/68 (85) 96 I/O 10/31/17 10/31/17 10/31/17 11/01/17 11/01/17 11/01/17 07:00 15:00 23:00 07:00 15:00 23:00 Intake Total 750 ml Output Total 900 ml Balance -150 ml Intake Oral 500 ml IV Total 250 ml Output Urine Total 900 ml # Bowel Movements 0 Physical Exam GENERAL: In NAD SKIN: Warm and dry. HEAD: Normocephalic. EYES: No scleral icterus. No injection or drainage. NECK: Supple, trachea midline. No JVD or lymphadenopathy. CARDIOVASCULAR: Regular rate and rhythm without murmurs, gallops, or rubs. RESPIRATORY: Breath sounds equal bilaterally. No accessory muscle use. GASTROINTESTINAL: Abdomen soft, non-tender, nondistended. MUSCULOSKELETAL: No cyanosis, or edema. Assessment and Plan Problem List: (1) RBBB ICD Codes: I45.10 - Unspecified right bundle-branch block (2) COPD exacerbation ICD Codes: J44.1 - Obstructive chronic bronchitis with exacerbation Status: Resolved (3) Influenza A ICD Codes: J10.1 - Influenza due to other identified influenza virus with other respiratory manifestations (4) A-fib ICD Codes: I48.91 - Unspecified atrial fibrillation (5) s p RUL lobectomy for adenocarcinoma Status: Acute (6) Tobacco abuse ICD Codes: Z72.0 - Tobacco use (7) Alcohol abuse ICD Codes: F10.10 - Alcohol abuse, uncomplicated Status: Acute Assessment and Plan No new cardiac issues. Remains stable from cardiac standpoint. Continue tx for COPD exac. Increase activity. Anticipate discharge soon. Constance Velez MD Nov 01, 2017 19:43
== END 2017-11-01 17:05 | disposition home or self-care (01) | DRG 193 ==
LOC: NEPE 15:35 → NEDA 18:09 → NEPGCP 19:55 → OBSVTOIN 10-28 12:59
PROVIDERS: ADMIT Family Medicine; ATTEND Family Medicine
DX: J10.1 Influenza due to other identified influenza virus with other respiratory manifestations (principal); J96.20 Acute and chronic respiratory failure, unspecified whether with hypoxia or hypercapnia; J44.1 Chronic obstructive pulmonary disease with (acute) exacerbation; E83.39 Other disorders of phosphorus metabolism; I48.0 Paroxysmal atrial fibrillation; I10 Essential (primary) hypertension; I48.2 Chronic atrial fibrillation; I45.10 Unspecified right bundle-branch block; I44.0 Atrioventricular block, first degree; T38.0X5A Adverse effect of glucocorticoids and synthetic analogues, initial encounter; D72.828 Other elevated white blood cell count; K21.9 Gastro-esophageal reflux disease without esophagitis; B18.2 Chronic viral hepatitis C; F10.10 Alcohol abuse, uncomplicated; F17.210 Nicotine dependence, cigarettes, uncomplicated; F32.9 Major depressive disorder, single episode, unspecified; Z79.01 Long term (current) use of anticoagulants; Z85.118 Personal history of other malignant neoplasm of bronchus and lung; Z90.2 Acquired absence of lung [part of]
CPT/HCPCS: 71046; 80048; 80053; 80069; 82550; 82552; 83036; 83735; 84100; 84439; 84443; 84484; 85007; 85025; 85027; 85379; 87804; 93005; 94150; 94640; 94664; G8987-GO; G8988-GO; G8989-GO; J1956; J2920; J2930; J7512

== ENCOUNTER 2017-12-24 21:20 | Emergency (ER) | payer SELFPAY ==
[~2017-12-24] VITALS: Ht 190.5 cm; Wt 82.0 kg
[~2017-12-24 21:20] MED LIST changes: +Albuterol-Ipratropium Neb INH; +CLAR10CA3 PO; +LEVA750T9 PO; +LORA-392 PO; +MONT5CHW2 CHEW; +OSEL75 PO; +PANT20TA2 PO; +PRED10 PO; +SOFO1TAB; +guaiFENesin ER PO
[2017-12-24 21:44] VITALS: BP 120/64; PULSE 95; RESP 18; TEMP 98.5; O2SAT 95
--- NOTE | 2017-12-24 22:24 | RADRPT ---
EXAM DATE/TIME: 12/24/2017 22:06 [facility] COMPARISON: CHEST PA & LAT, October 26, 2017, 16:20. INDICATIONS : Chest pain and shortness of breath. MEDICAL HISTORY : Chronic obstructive pulmonary disease. Carcinoma, lung. A-fib. SURGICAL HISTORY : Lobectomy. ENCOUNTER: Initial ACUITY: 2 days PAIN SCORE: 6/10 LOCATION: middle chest. FINDINGS: PA and lateral views of the chest demonstrate bilateral parenchymal fibrotic changes in lungs with pr evious partial right lung resection. Findings are similar to October 26. No new infiltrate or effusio n. Underlying emphysema. CONCLUSION: 1. Stable exam since October 26. Parenchymal scarring and postoperative partial right lung resection. Eduin Rodriguez MD on December 24, 2017 at 22:19 Board Certified Radiologist. This report was verified electronically.
[2017-12-24] MEDS ORDERED: ASPIRIN 81 MG CHEW TAB CHEW ONE (23:00)
[2017-12-24] MEDS ORDERED: NITROGLYCERIN 2% OINT 1 GM PACKET TOPICAL ONE (23:00)
--- NOTE | 2017-12-24 23:01 | PD ---
HPI Chief Complaint: Respiratory Symptoms Time Seen by Provider: 22:46 Travel History International Travel<30 days: No Contact w/Intl Traveler<30days: No Traveled to known affect area: No History of Present Illness HPI The patient is a 57 year old male who presents to the [facility] emergency department with a history of shortness of breath that he reports began 2 days ago. He reports having a history of COPD and a prior history of lung cancer status post resection in 2016. He reports having chest tightness associated with shortness of breath with wheezing. He reports that he has been out of his rescue inhaler, pro-air for the last 2 months. He reports that he borrowed some albuterol solution for his nebulizer treatment and last use that 3-4 hours ago. Patient reports that he lost his insurance and no longer has a primary care physician. He reports that his cough has been productive of yellow sputum. On review of systems otherwise, he denies having any known recent fevers, however he has had chills. He denies having any new or worsening neck pain, abdominal pain, vomiting, diarrhea, urinary symptoms, or neurologic symptoms. [facility] Past Medical History Narrative Medical The patient's past medical history is significant for atrial fibrillation, hypertension, history of COPD, history of lung cancer, history of recent admission to the hospital related to a COPD exacerbation and influenza in October 2017, history of hepatitis C, history of cervical radiculopathy. Hx Anticoagulant Therapy: Yes (ELIQUIS) Atrial Fibrillation: Yes Blood Disorders: No Cancer: Yes (Lung) Cardiovascular Problems: Yes (A-FIB) Chemotherapy: No Congestive Heart Failure: No COPD: Yes Coronary Artery Disease: No Diabetes: No Endocrine: No Gastrointestinal Disorders: No Genitourinary: No Hypertension: No Immune Disorder: No Implanted Vascular Access Dvce: No Musculoskeletal: No Neurologic: Yes (hx of seizures "years ago") Psychiatric: No Reproductive: No Respiratory: Yes Seizures: Yes ?: Not Past Surgical History Narrative Surgical The patient's past surgical history is significant for a lobectomy of the lung related to lung cancer in 2015. Other Surgery: Yes (PART OF TOP RIGHT LUNG REMOVED FOR CA ) Social History Alcohol Use: Yes Tobacco Use: Yes (One half pack per day) Substance Use: No Allergies-Medications (Allergen,Severity, Reaction): Coded Allergies: No Known Allergies (Verified Allergy, Unknown, 4/9/18) Reported Meds & Prescriptions Reported Meds & Active Scripts Active Medrol Dosepak (Methylprednisolone) 4 Mg Dspk 4 Mg PO DIRECTED Per Pharmacist direction Proair Hfa 8.5 GM Inh (Albuterol Sulfate) 90 Mcg/Act Aer 2 Puff INH Q4-6H PRN 108 mcg/actuation Cefuroxime (Cefuroxime Axetil) 500 Mg Tab 500 Mg PO BID 10 Days Zithromax Z-William (Azithromycin) 250 Mg Dspk 250 Mg PO DIRECTED 500 MG (2 tabs) day 1, then 1 tab days 2-5. [Albuterol-Ipratropium Neb] 1 AMPULE Nebu 1 Ampule INH TID NEB 30 Days Singulair (Montelukast Sodium) 5 Mg Chew 5 Mg CHEW HS [guaiFENesin ER] 600 MG Tabcr 1,200 Mg PO BID 14 Days Ativan (Lorazepam) 0.5 Mg Tab 0.5 Mg PO Q6H PRN Symbicort Inh (Budesonide/Formoterol Fumarate) 80-4.5 Mcg/Act Aero 2 Puff INH Q12HR 30 Days Reported Trazodone (Trazodone HCl) 100 Mg Tablet 100 Mg PO HS Epclusa 400 mg-100 mg Tablet (Sofosbuvir/Velpatasvir) 400 Mg-100 Mg Tablet DAILY Pantoprazole (Pantoprazole Sodium) 20 Mg Tab 20 Mg PO DAILY Aspirin 81 Mg Chew 81 Mg CHEW DAILY Diltiazem (Diltiazem HCl) 120 Mg Tab 120 Mg PO DAILY Review of Systems Except as stated in HPI: all other systems reviewed are Neg General / Constitutional: Positive: Chills, No: Fever Eyes: No: Visual changes HENT: Positive: Sore Throat, Rhinorrhea, Congestion, No: Headaches Cardiovascular: Positive: Dyspnea on exertion, No: Chest Pain or Discomfort Respiratory: Positive: Cough, Shortness of Breath Gastrointestinal: No: Abdominal Pain Genitourinary: No: Dysuria Musculoskeletal: No: Pain Skin: No Rash Neurologic: No: Weakness, Focal Abnormalities, Change in Mentation, Slurred Speech, Sensory Disturbance Psychiatric: No: Depression Endocrine: No: Polydipsia Hematologic/Lymphatic: No: Easy Bruising Physical Exam Narrative General: The patient is a well-developed well-nourished male in no acute distress. Head and Neck exam: Head is normocephalic atraumatic. Eyes: EOMI, pupils are equal round and reactive to light. Nose: Midline septum with pink mucous membranes Mouth: Dentition unremarkable. Moist mucus membranes. Posterior oropharynx is mildly erythematous. No tonsillar hypertrophy. Uvula midline. Airway patent. Neck: No palpable lymphadenopathy. No nuchal rigidity. No thyromegaly. Cardiovascular: Regular rate and rhythm without murmurs, gallops, or rubs. No pulse deficit to the extremities on simultaneous auscultation and palpation of his radial artery. Lungs: Soft expiratory wheezes audible throughout bilateral lung schneider, no rhonchi, no crackles. Abdomen: Soft, without tenderness to palpation in all 4 quadrants of the abdomen. No guarding, rebound, or rigidity. Normal bowel sounds are audible. No tenderness on palpation of McBurney's point. Negative Jenkins sign. Extremities: No clubbing, cyanosis, or edema. 2+ pulses in all 4 extremities. No calf tenderness on palpation. Back: No costovertebral angle tenderness to palpation. Neurologic Exam: Grossly nonfocal. Skin Exam: No rash noted. Intact skin that is warm and dry. Data Data Last Documented VS Vital Signs Date Time Temp Pulse Resp B/P (MAP) Pulse Ox O2 Delivery O2 Flow Rate FiO2 12/24/17 23:42 97 22 146/81 (102) 95 12/24/17 23:07 Room Air 12/24/17 21:44 98.5 Orders Orders Complete Blood Count With Diff (12/24/17 21:47) Basic Metabolic Panel (Bmp) (12/24/17 21:47) Chest, Pa & Lat (12/24/17 21:47) Blood Culture (12/24/17 21:47) Iv Access Insert/Monitor (12/24/17 21:47) Ecg Monitoring (12/24/17 21:47) Oxygen Administration (12/24/17 21:47) Oximetry (12/24/17 21:47) Electrocardiogram (12/24/17 21:47) Aspirin Chew (Aspirin Chew) (12/24/17 23:00) Nitroglycerin 2% Oint (Nitroglycerin 2% (12/24/17 23:00) Methylprednisolone So Succ Inj (Solumedr (12/24/17 23:30) Albuterol-Ipratropium Neb (Duoneb Neb) (12/24/17 23:30) Levofloxacin 750 Mg Premix Inj (Levaquin (12/24/17 23:30) B-Type Natriuretic Peptide (12/25/17 00:26) Lactic Acid Sepsis Protocol (12/25/17 00:29) Ckmb (Isoenzyme) Profile (12/24/17 22:55) Troponin I (12/24/17 22:55) Labs Laboratory Tests Test 12/24/17 22:55 12/25/17 00:35 White Blood Count 18.3 TH/MM3 Red Blood Count 4.86 MIL/MM3 Hemoglobin 15.0 GM/DL Hematocrit 43.4 % Mean Corpuscular Volume 89.4 FL Mean Corpuscular Hemoglobin 30.8 PG Mean Corpuscular Hemoglobin Concent 34.5 % Red Cell Distribution Width 13.4 % Platelet Count 283 TH/MM3 Mean Platelet Volume 7.3 FL Neutrophils (%) (Auto) 83.8 % Lymphocytes (%) (Auto) 10.8 % Monocytes (%) (Auto) 4.8 % Eosinophils (%) (Auto) 0.3 % Basophils (%) (Auto) 0.3 % Neutrophils # (Auto) 15.3 TH/MM3 Lymphocytes # (Auto) 2.0 TH/MM3 Monocytes # (Auto) 0.9 TH/MM3 Eosinophils # (Auto) 0.1 TH/MM3 Basophils # (Auto) 0.1 TH/MM3 CBC Comment DIFF FINAL Differential Comment Blood Urea Nitrogen 8 MG/DL Creatinine 0.96 MG/DL Random Glucose 106 MG/DL Calcium Level 9.0 MG/DL Sodium Level 136 MEQ/L Potassium Level 3.4 MEQ/L Chloride Level 101 MEQ/L Carbon Dioxide Level 26.3 MEQ/L Anion Gap 9 MEQ/L Estimat Glomerular Filtration Rate 81 ML/MIN Total Creatine Kinase 73 U/L Troponin I LESS THAN 0.02 NG/ML B-Type Natriuretic Peptide 17 PG/ML Lactic Acid Level 0.9 mmol/L [facility] Medical Decision Making Medical Screen Exam Complete: Yes Emergency Medical Condition: Yes Medical Record Reviewed: Yes Interpretation(s) Last Impressions Chest X-Ray 12/24/17 9395 Signed Impressions: Service Date/Time: Sunday, December 24, 2017 22:06 - CONCLUSION: 1. Stable exam since October 26. Parenchymal scarring and postoperative partial right lung resection. Eduin Rodriguez MD Differential Diagnosis COPD exacerbation, versus pneumonia, versus acute coronary syndrome Narrative Course During the course of the patient's emergency department visit, the patient's history, examination, and differential diagnosis were reviewed with the patient. The patient was placed on a registered nurse cardiac with oximetry and frequent blood pressure monitoring. The patient had IV access obtained and blood work sent for analysis. The patient had a EKG done on arrival that shows a sinus rhythm heart rate of 89, QRS duration 83 ms, QTC [address] segment depression is noted in lead I, aVL, V4, V5, V6. The patient was initially provided aspirin 324 mg p.o. 1, nitroglycerin 1 inch the chest wall. The patient was given Levaquin 750 mg p.o. 1, DuoNeb 3, Solu- Medrol 125 mg IV. The patient's EKG was compared to a prior EKG done at this facility and is similar in appearance compared to EKG tracings done in October 2017. The patient's laboratory studies were reviewed and remarkable for a white count of 18.3, hemoglobin 15, platelets 283 with 83.8 neutrophils, basic metabolic profile is remarkable for potassium of 3.4, GFR of 81, cardiac enzymes within normal limits, BNP 18, lactic acid 0.9. Radiology studies were reviewed and remarkable for a chest x-ray that showed no acute cardiopulmonary disease. The patient on reexamination has had improvement in his wheezing. The patient has clear breath sounds bilaterally. The patient reports being out of his rescue inhaler as well as his nebulizer solution. The patient is given refills of both of these along with antibiotic to be continued orally, and a Medrol Dosepak taper. The patient reports that he has no primary care physician, therefore he is given information regarding following up with the [facility]. The patient is instructed regarding the importance of quitting smoking. The patient is resting comfortably and feels better, is alert and in no distress. The patient's results and examination findings were discussed with the patient. The repeat examination is unremarkable and benign. The history, exam, diagnostic testing, and current condition do not suggest any significant pathology to warrant further testing, continued ED treatment, admission, or surgical evaluation at this point. The vital signs have been stable. The patient does not have uncontrollable pain, intractable vomiting, or other significant symptoms. The patient's condition is stable and appropriate for discharge. The patient will pursue further outpatient evaluation with a primary care physician or other designated or consulting physician as indicated in the discharge instructions. The patient expressed understanding and was agreeable with this plan. Diagnosis Primary Impression: COPD exacerbation Additional Impressions: Bronchitis Noncompliance with medication regimen Referrals: [facility] 1 day Patient Instructions: Acute Bronchitis (ED), COPD (Chronic Obstructive Pulmonary Disease) (ED), General Instructions Med/Other Pt SpecificInfo: Prescription(s) given Scripts Methylprednisolone Dosepak (Medrol Dosepak) 4 Mg Dspk 4 MG PO DIRECTED, #1 DSPK 0 Refills Per Pharmacist direction Prov: Kady Son MD 12/25/17 Albuterol 8.5 GM Inh (Proair Hfa 8.5 GM Inh) 90 Mcg/Act Aer 2 PUFF INH Q4-6H Y for SHORTNESS OF BREATH, #1 INHALER 0 Refills 108 mcg/actuation Prov: Kady Son MD 12/25/17 Cefuroxime (Cefuroxime) 500 Mg Tab 500 MG PO BID for Infection for 10 Days, #20 TAB 0 Refills Prov: Kady Son MD 12/25/17 Azithromycin (Zithromax Z-William) 250 Mg Dspk 250 MG PO DIRECTED for Infection, #1 DSPK 0 Refills 500 MG (2 tabs) day 1, then 1 tab days 2-5. Prov: Kady Son MD 12/25/17 [Albuterol-Ipratropium Neb] 1 AMPULE NEBU No Conflict Check 1 AMPULE INH TID NEB for COPD for 30 Days Prov: Kady Son MD 12/25/17 Disposition: 01 DISCHARGE HOME Condition: Stable Kady Son MD Dec 24, 2017 23:01
[2017-12-24 23:06] VITALS: BP 133/85; PULSE 90; RESP 20; O2SAT 94
[2017-12-24 23:27] LABS: AUTOMATED NEUTROPHIL # 15.3 TH/MM3 (1.8-7.7); BASOPHIL # 0.1 TH/MM3 (0-0.2); BASOPHIL % 0.3 % (0.0-2.0); EOSINOPHIL # 0.1 TH/MM3 (0-0.4); EOSINOPHIL % 0.3 % (0.0-4.0); HEMATOCRIT 43.4 % (39.0-51.0); LYMPH % 10.8 % (9.0-44.0); MEAN CELL VOLUME 89.4 FL (80.0-100.0); MEAN CORPUSCULAR HEMOGLOBIN 30.8 PG (27.0-34.0); MEAN CORPUSCULAR HGB CONC 34.5 % (32.0-36.0); MEAN PLATELET VOLUME 7.3 FL (7.0-11.0); MONO % 4.8 % (0.0-8.0); MONOCYTE # 0.9 TH/MM3 (0-0.9); NEUT % 83.8 % (16.0-70.0); PLATELET COUNT 283 TH/MM3 (150-450); RED BLOOD COUNT 4.86 MIL/MM3 (4.50-5.90); RED CELL DISTRIBUTION WIDTH 13.4 % (11.6-17.2); WHITE BLOOD COUNT 18.3 TH/MM3 (4.0-11.0)
[2017-12-24] MEDS ORDERED: LEVOFLOXACIN 750 MG PREMIX INJ 150 ML IV ONE (23:30)
[2017-12-24] MEDS: RESP: ALBUTEROL 2.5 MG/IPRATROPIUM 0.5 MG NEB (SCH) INH (23:30)
[2017-12-24] MEDS ORDERED: methylPREDNISolone SOD SUCC 125 MG/2 ML VIAL IV PUSH ONE (23:30)
[2017-12-24 23:42] VITALS: BP 146/81; PULSE 97; RESP 22; O2SAT 95
[2017-12-24] MEDS ORDERED: TRAZ100T10 PO (23:48)
[2017-12-24 23:50] LABS: BICARBONATE 26.3 MEQ/L (21.0-32.0); BLOOD UREA NITROGEN 8 MG/DL (7-18); CHLORIDE 101 MEQ/L (98-107); CREATININE 0.96 MG/DL (0.60-1.30); GLOMERULAR FILTRATION RATE 81 ML/MIN (>89); GLUCOSE,RANDOM 106 MG/DL (74-106); SODIUM (NA) 136 MEQ/L (136-145)
[2017-12-25 01:14] LABS: TROPONIN I LESS THAN 0.02 NG/ML (0.02-0.05)
[2017-12-25] MEDS ORDERED: ALBUAER3 INH (01:31)
[2017-12-25] MEDS ORDERED: Albuterol-Ipratropium Neb INH (01:31)
[2017-12-25] MEDS ORDERED: CEFU1TAB20 PO (01:31)
[2017-12-25] MEDS ORDERED: MEDR4PAK PO (01:31)
[2017-12-25] MEDS ORDERED: ZITHTAB PO (01:31)
[2017-12-25 01:51] VITALS: BP 139/81
--- NOTE | 2017-12-25 08:05 | EKG ---
Date Performed: 12/24/2017 Time Performed: 22:46:26 PTAGE: 57 years EKG: Sinus rhythm MODERATE ST DEPRESSION ABNORMAL ECG Compared to prior electrocardiogram, Right bundle branch block h as resolved and ST depressions are present. PREVIOUS TRACING : 10/26/2017 17.08 DOCTOR: Hermilo Bowling Interpretating Date/Time 12/25/2017 08:04:13
== END 2017-12-25 02:05 | disposition home or self-care (01) ==
LOC: NEPC 21:20
DX: J44.1 Chronic obstructive pulmonary disease with (acute) exacerbation (principal); I48.91 Unspecified atrial fibrillation; F17.200 Nicotine dependence, unspecified, uncomplicated; Z79.01 Long term (current) use of anticoagulants; Z85.118 Personal history of other malignant neoplasm of bronchus and lung; Z91.14 Patient's other noncompliance with medication regimen
CPT/HCPCS: 71046; 80048; 82550; 83605; 83880; 84484; 85025; 87040; 93005; 94640; 94664; 96365; 96375; 99285; J1956; J2930

== ENCOUNTER 2018-08-31 04:15 | Inpatient (IN) ==
[2018-08-31] MEDS ORDERED: MethylPREDNISolone Sod Succinate Inj 125 MG/2 ML Vial IV.PUSH ONE (04:36)
--- NOTE | 2018-08-31 05:00 | ED ---
HPI General Chief complaint: Respiratory Symptoms Stated complaint: resp Time Seen by Provider: 08/31/18 04:30 Source: patient and old records reviewed Mode of arrival: ambulatory Limitations: no limitations History of Present Illness HPI narrative: 58-year-old man with a history of tobacco use, COPD, solitary lung mass status post resection 2016, and poor compliance. He does not follow with any physicians at this time. He ran out of his medicine several days ago. He has had increased shortness of breath cough over the past 2 days. No chest pain. No fevers. Symptoms have been worsening and so he came to the emergency department today. Worse with exertion. No other aggravating or alleviating factors. Related Data Home Medications Medication Instructions Recorded Confirmed trazodone 150 mg PO HS 06/28/18 08/31/18 budesonide-formoterol [Symbicort] 2 puff INHALATION BID 08/31/18 08/31/18 Previous Rx's Medication Instructions Recorded albuterol sulfate 2.5 mg INHALATION Q4-6H PRN #90 ml 08/15/18 Allergies Allergy/AdvReac Type Severity Reaction Status Date / Time No Known Allergies Allergy Verified 06/28/18 07:23 Review of Systems ROS: all other systems reviewed are negative [facility] Medical History Medical History A-fib (Chronic) COPD (chronic obstructive pulmonary disease) (Chronic) Lung cancer (Inactive) Surgical History Surgical History S/P lobectomy of lung (Inactive) Social History Social History Substance History: No History of Abuse Second Hand Smoke Exposure: Yes Smoking Status: Current every day smoker Tobacco Type: Cigarettes How Often Do You Have a Drink Containing Alcohol: Never Recent Travel in [place] within the Last 8 Weeks: No Recent Out of Country Travel within the Last 8 Weeks: No Immunization History Tetanus Immunization: <5 Years Exam Narrative Exam Narrative: GENERAL: A 58-year-old man, moderate respiratory distress, moderate diffuse wheezing. SKIN: Focused skin assessment warm/dry. HEAD: Atraumatic. Normocephalic. EYES: Pupils equal and round. No scleral icterus. No injection or drainage. ENT: No nasal bleeding or discharge. Mucous membranes pink and moist. NECK: Trachea midline. No JVD. CARDIOVASCULAR: Regular rate and rhythm. No murmur appreciated. RESPIRATORY: No accessory muscle use. Clear to auscultation. Breath sounds equal bilaterally. GASTROINTESTINAL: Abdomen soft, non-tender, nondistended. Hepatic and splenic margins not palpable. MUSCULOSKELETAL: No obvious deformities. No calf swelling, calf tenderness, or edema. NEUROLOGICAL: Awake and alert. No obvious cranial nerve deficits. Motor grossly within normal limits. Normal speech. Course Initial Documented Vital Signs Temperature 98.3 F 08/31/18 04:18 Pulse Rate 130 H 08/31/18 04:18 Respiratory Rate 30 H 08/31/18 04:18 Blood Pressure 135/98 H 08/31/18 04:18 Pulse Oximetry 93 L 08/31/18 04:18 Last Documented Vital Signs Temperature 98.3 F 08/31/18 04:18 Pulse Rate 112 H 08/31/18 04:56 Respiratory Rate 22 08/31/18 04:56 Blood Pressure 158/97 H 08/31/18 04:30 Pulse Oximetry 97 08/31/18 05:01 Medical Decision Making MDM Narrative Medical decision making narrative: 58-year-old man, COPD, out of medication, here with what appears to be COPD exacerbation. He is in moderate respiratory distress was nontoxic. He is a little bit tachycardic. I do not think he has a PE. His lung cancer history is from 2 years ago, without evidence of recurrence. Will check x-ray, bronchodilators, steroids. Medical Screen Exam Complete: Yes Emergency Medical Condition: Yes Lab Data Lab results reviewed: Yes I reviewed the patient's lab results. Result diagrams: 08/31/18 04:48 08/31/18 04:48 Lab Results 08/31/18 08/31/18 Range/Units 04:48 04:48 WBC 32.3 H (4.0-11.0) th/mm3 RBC 5.30 (4.50-5.90) mil/mm3 Hgb 16.9 (13.0-17.0) gm/dL Hct 48.5 (39.0-51.0) % MCV 91.5 (80.0-100.0) fL MCH 31.9 (27.0-34.0) pg MCHC 34.9 (32.0-36.0) % RDW 13.1 (11.6-17.2) % Plt Count 359 D (150-450) th/mm3 MPV 7.0 (7.0-11.0) fL Prelim Diff (Auto) Slide review pending Neut % (Auto) 81.1 H (16.0-70.0) % Lymph % (Auto) 11.8 (9.0-44.0) % Woods % (Auto) 6.4 (0.0-8.0) % Eos % (Auto) 0.2 (0.0-4.0) % Baso % (Auto) 0.5 (0.0-2.0) % Neut # (Auto) 26.2 H (1.8-7.7) th/mm3 Lymph # (Auto) 3.8 (1.0-4.8) th/mm3 Woods # (Auto) 2.1 H (0.0-0.9) th/mm3 Eos # (Auto) 0.1 (0.0-0.4) th/mm3 Baso # (Auto) 0.2 (0.0-0.2) th/mm3 WBC Differential Manual diff final Seg Neuts % (Manual) 77 H (16-70) % Band Neuts % (Manual) 3 (0-6) % Lymphocytes % (Manual) 14 (9-44) % Monocytes % (Manual) 6 (0-8) % Abs Neuts (Manual) 25.8 H (1.8-7.7) th/mm3 Differential Comment . Platelet Estimate Normal (Normal) Platelet Morphology Normal (Normal) RBC Morphology Normal (Normal) Sodium 138 (136-145) meq/L Potassium 3.9 (3.5-5.1) meq/L Chloride 104 (98-107) meq/L Carbon Dioxide 19.0 L (21.0-32.0) meq/L Anion Gap 15 (5-15) meq/L BUN 12 (7-18) mg/dL Creatinine 0.96 (0.60-1.30) mg/dL Estimated GFR 80 L (>89) mL/min Random Glucose 91 (74-106) mg/dL Calcium 8.1 L (8.5-10.1) mg/dL Total Bilirubin 0.8 (0.2-1.0) mg/dL AST 24 (15-37) U/L ALT 25 (12-78) U/L Alkaline Phosphatase 114 (45-117) U/L Troponin I Less than 0.02 L (0.02-0.05) ng/mL Total Protein 8.0 (6.4-8.2) g/dL Albumin 3.8 (3.4-5.0) g/dL Imaging Data Attestation: I personally reviewed and interpreted this imaging study as follows : Radiologist's impression: Chest X-Ray 08/31/18 04:36 CONCLUSION: Hyperinflated lungs likely from COPD. ECG Data Attestation: I personally reviewed and interpreted this ECG as follows: Interpretation: Sinus tachycardia rate of 118, inferior ST depressions, normal axis, normal intervals. Possible ischemia. Discharge Plan Discharge Disposition Patient Disposition: ED Admit(ED Internal Use Only) Physicians Team ED Provider: Elpidio Gomez Rxs /Orders / Referrals /Forms Prescriptions: No Action trazodone 150 mg Tablet 150 mg PO HS RF: 0 albuterol sulfate 2.5 mg /3 mL (0.083 %) solution for nebulization 2.5 mg INHALATION Q4-6H PRN (Reason: shortness of breath or wheezing) Qty: 90 RF: 0 budesonide-formoterol [Symbicort] 80-4.5 mcg/actuation Hfa Aerosol Inhaler 2 puff INHALATION BID RF: 0 Status ED Status: With Doctor
[2018-08-31 05:01] LABS: Baso # (Auto) 0.2 th/mm3 (0.0-0.2); Baso % (Auto) 0.5 % (0.0-2.0); Eos # (Auto) 0.1 th/mm3 (0.0-0.4); Eos % (Auto) 0.2 % (0.0-4.0); Hematocrit 48.5 % (39.0-51.0); Hemoglobin 16.9 gm/dL (13.0-17.0); Lymph # (Auto) 3.8 th/mm3 (1.0-4.8); Lymph % (Auto) 11.8 % (9.0-44.0); Mean Corpuscular HGB Conc 34.9 % (32.0-36.0); Mean Corpuscular Hemoglobin 31.9 pg (27.0-34.0); Mean Corpuscular Volume 91.5 fL (80.0-100.0); Mono # (Auto) 2.1 th/mm3 (0.0-0.9); Mono % (Auto) 6.4 % (0.0-8.0); Neut # (Auto) 26.2 th/mm3 (1.8-7.7); Neut % (Auto) 81.1 % (16.0-70.0); Platelet Count 359 th/mm3 (150-450); Red Cell Distribution Width 13.1 % (11.6-17.2); White Blood Count 32.3 th/mm3 (4.0-11.0)
[2018-08-31 05:18] LABS: Albumin 3.8 g/dL (3.4-5.0); Anion Gap 15 meq/L (5-15); Aspartate Aminotransferase 24 U/L (15-37); Blood Urea Nitrogen 12 mg/dL (7-18); Calcium 8.1 mg/dL (8.5-10.1); Chloride 104 meq/L (98-107); Glomerular Filtration Rate 80 mL/min (>89); Glucose,Random 91 mg/dL (74-106); Potassium 3.9 meq/L (3.5-5.1); Sodium 138 meq/L (136-145)
[2018-08-31 05:21] LABS: Alanine Aminotransferase 25 U/L (12-78); Alkaline Phosphatase 114 U/L (45-117)
--- NOTE | 2018-08-31 05:27 | XR ---
EXAM DATE: 08/31/2018 4:51 AM EST AGE/SEX: 58 years / Male INDICATIONS: Shortness of breath. CLINICAL DATA: This is the patient's initial encounter. Patient reports that signs and symptoms have been present for 1 day and indicates a pain score of 0/10. MEDICAL/SURGICAL HISTORY: Chronic obstructive pulmonary disease. Emphysema. Carcinoma, lung. Lobectomy. COMPARISON: [facility] – [place]ST 1V SINGLE AP, 08/15/2018. . FINDINGS: The heart size is normal. The lungs appear hyperinflated. There is linear suspected scarring in the r ight upper lung. No effusion is seen. CONCLUSION: Hyperinflated lungs likely from COPD. Electronically signed by: Danielito Kim MD Board Certified Radiologist 08/31/2018 5:26 AM EST
[2018-08-31 05:47] LABS: Lymphocytes 14 % (9-44); Monocytes 6 % (0-8); Platelet Estimate Normal (Normal); Platelet Morphology Normal (Normal); RBC Morphology Normal (Normal)
[2018-08-31] MEDS ORDERED: Bisacodyl 10 MG Supp RECTAL PRN (06:05)
[2018-08-31] MEDS ORDERED: Acetaminophen 325 MG Tablet PO PRN (06:05)
--- NOTE | 2018-08-31 07:12 | CT ---
EXAM DATE: 08/31/2018 7:06 AM EST AGE/SEX: 58 years / Male INDICATIONS: Shortness of breath. CLINICAL DATA: This is the patient's initial encounter. Patient reports that signs and symptoms have been present for 1 day and indicates a pain score of 0/10. MEDICAL/SURGICAL HISTORY: Cardiovascular disease. Chronic obstructive pulmonary disease. Carcinom a, lung. None. RADIATION DOSE: 8.43 CTDI (mGy) [place] [facility] [place] W 3D, 08[place]15/2018. [facility] [place] RIGHT, 04/04/2016. . TECHNIQUE: Volumetric scanning was performed using a multi-row detector CT scanner during bolus infu steffi of 68 ml Omnipaque 350 (iohexol) nonionic water-soluble contrast as a single exam dose. The dianne a was post processed with a variety of visualization algorithms including full volume maximum intensi ty projection and sliding thin slab reformation. Using automated exposure control and adjustment of t he mA and/or kV according to patient size, radiation dose was kept as low as reasonably achievable to obtain optimal diagnostic quality images. DICOM format image data is available electronically for r eview and comparison. FINDINGS: Pulmonary Arteries: No filling defects are seen in the pulmonary arteries out to the subsegmental ve ssels. The left and right pulmonary arteries are normal in diameter. Lung: The lungs demonstrate a stable pattern of severe centrilobular emphysema with areas of bullous emphysematous change within the bilateral upper lungs. There is a new area of airspace consolidation involving the posterior left lower lobe. Effusion: None. Mediastinum: No evidence of mediastinal or hilar adenopathy. Other: The axilla is unremarkable. CONCLUSION: 1. No evidence of pulmonary emboli. 2. Severe centrilobular emphysema and a new left lower lobe airspace consolidation. This may represe nt an acute infectious process such as pneumonia. Electronically signed by: Leslie Bee MD Board Certified Radiologist 08/31/2018 7:11 AM BAO Tucker
--- NOTE | 2018-08-31 07:47 | P.HPIM ---
History of Present Illness Service: [facility] Primary Care Physician: No Primary Care Physician Chief Complaint: Shortness of breath History of Present Illness: This is a 58-year-old male with a past medical history significant for COPD tobacco use, solitary lung mass status post resection, and poor compliance. He does not have a primary care physician. He is presenting and being admitted at this time due to his COPD exacerbation. Reports having a 3- day history of severe shortness of breath. He ran out of his medications which he thinks is the main cause for this exacerbation. Has been unable to eat very much because of the shortness of breath. Denies any chest pain. Denies any nausea vomiting. Unaware of any fevers or illness currently. - Diagnosis (1) COPD exacerbation Inpatient Certification: I certify that the inpatient services were ordered in accordance with Medicare regulations governing the order. This includes certification that hospital inpatient services are reasonable and necessary and in the case of services not specified as inpatient-only under 42 CFR 419.22(n), that they are appropriately provided as inpatient services in accordance to with the 2-midnight benchmark under 43 CFR 412.3(e) Estimated Total Length of Stay (Days): 2 Plans for Post Hospital Care: Not yet determined Review of Systems Constitutional: Reports lack of energy, Reports weakness, Denies anorexia, Denies fever(s), Denies increased appetite Eyes: Denies blurry vision, Denies double vision, Denies discharge Ears, Nose, Mouth, and Throat: Denies abnormal hearing, Denies change in voice, Denies dizziness, Denies headache(s), Denies nasal congestion, Denies nasal discharge Cardiovascular: Reports rapid, pounding, or irregular heartbeat, Reports shortness of breath, Reports shortness of breath with activity, Reports shortness of breath when lying down, Denies chest pain, Denies generalized swelling, Denies leg swelling, Denies shortness of breath causing sudden awakening, Denies slow heart rate Respiratory: Reports cough, Reports shortness of breath, Reports shortness of breath with activity, Reports wheezing, Denies change in phlegm color, Denies coughing up blood, Denies pain with cough Gastrointestinal: Reports abdominal pain (Umbilical hernia reducible), Denies nausea, Denies vomiting Musculoskeletal: Reports back pain, Denies muscle weakness, Denies neck pain, Denies numbness Neurologic: Denies abnormal movements, Denies abnormal speech, Denies abnormal walking, Denies headache(s), Denies numbness Psychiatric: Denies anxiety, Denies depression PMFSH - History History Provided By: Patient - Medical History Medical History: Medical History (Last Reviewed 08/31/18 @ 04:58 by Elpidio Gomez MD) A-fib COPD (chronic obstructive pulmonary disease) Lung cancer - Surgical History Surgical History: Surgical History (Last Reviewed 08/31/18 @ 04:58 by Elpidio Gomez MD) S/P lobectomy of lung - Social History I have reviewed the patient's Social History: Yes - Tobacco History Second Hand Smoke Exposure: Yes Tobacco Use In Past 30 Days: Yes Smoking Status: Current every day smoker Tobacco Type: Cigarettes - Alcohol History How Often Do You Have a Drink Containing Alcohol: Never - Substance Use History Substance History: No History of Abuse - Travel History Recent Travel in the [facility] [place] Within the Last 8 Weeks: No Recent Travel Out of the Country Within the Last 8 Weeks: No - Immunization History Tetanus Immunization: <5 Years Medications and Allergies Active Medications: Active Medications Acetaminophen (Tylenol) 650 mg PO Q4H PRN PRN Reason: Temp > 100.4 Al Hydroxide/Mg Hydroxide (Milk Of Magnesia Liq) 30 ml PO Q12H PRN PRN Reason: Mild Constipation Albuterol (Albuterol Neb (Prn)) 2.5 mg NEB Q2HR NEB PRN PRN Reason: SHORTNESS OF BREATH Albuterol (Duoneb Neb (Love)) 1 ampul NEB Q4HR NEB LOVE Bisacodyl (Dulcolax Supp) 10 mg RECTAL DAILY PRN PRN Reason: SEVERE CONSITIPATION Budesonide/Formoterol Fumarate (Symbicort 80/4.5 Mcg Inh) 2 puff INH BID LOVE Lactulose (Lactulose Liq) 30 ml PO DAILY PRN PRN Reason: SEVERE CONSITIPATION Methylprednisolone Sodium Succinate (Solumedrol Inj) 60 mg IV.PUSH Q6H LOVE Ondansetron HCl (Zofran Inj) 4 mg IV.PUSH Q6H PRN PRN Reason: NAUSEA OR VOMITING Sennosides (Senokot) 17.2 mg PO Q12H PRN PRN Reason: Moderate Constipation Sodium Chloride (Ns Flush) 2 ml IV.FLUSH BID LOVE Sodium Chloride (Ns Flush) 2 ml IV.FLUSH PRN PRN PRN Reason: FLUSH AFTER USING IV ACCESS Trazodone HCl (Desyrel) 150 mg PO HS [facility] Allergies Allergy/AdvReac Type Severity Reaction Status Date / Time No Known Allergies Allergy Verified 06/28/18 07:23 Home Medications Medication Instructions Recorded Confirmed Type trazodone 150 mg PO HS 06/28/18 08/31/18 History budesonide-formoterol [Symbicort] 2 puff INHALATION BID 08/31/18 08/31/18 History Exam Vital signs: Vital Signs 08/31/18 04:18 08/31/18 04:30 08/31/18 04:40 Temperature 98.3 F Pulse Rate 130 H 125 H 116 H Respiratory Rate 30 H 30 H 22 Blood Pressure 135/98 H 158/97 H Pulse Oximetry 93 L 96 08/31/18 04:48 08/31/18 04:56 08/31/18 05:01 Temperature Pulse Rate 115 H 112 H Respiratory Rate 22 22 Blood Pressure Pulse Oximetry 97 08/31/18 07:20 Temperature Pulse Rate 110 H Respiratory Rate 30 H Blood Pressure 138/80 Pulse Oximetry 95 Intake & Output 08/30/18 08/31/18 08/31/18 18:59 06:59 18:59 Weight 79.379 kg - Constitutional no acute distress, thin, chronically ill appearing - Routine HEENT Exam Eye: Present: EOMI, PERRL, normal accommodation ENT: Present: mucous membranes moist. Absent: dentition normal - Routine Neck Exam Present: supple, full ROM, JVD. Absent: carotid bruit - Routine Chest/Breast/Axilla Exam Chest wall: Absent: tenderness - Routine Respiratory Exam Present: accessory muscle use, prolonged expiratory phase, wheezes - Routine Cardiovascular Exam Present: irregularly irregular - Routine Abdominal Exam Present: soft, tenderness (At the area of the umbilical hernia), hernia ( Umbilical hernia reducible) - Routine Extremities Exam Present: cyanosis, full ROM. Absent: edema, Se's sign, tenderness - Routine Skin Exam Present: intact, dry - Routine Neurological Exam Present: alert, oriented X3, CN II-XII intact Results - Labs CBC & Chem 7: 08/31/18 04:48 08/31/18 04:48 Labs: Short CBC 08/31/18 Range/Units 04:48 WBC 32.3 H (4.0-11.0) th/mm3 Hgb 16.9 (13.0-17.0) gm/dL Hct 48.5 (39.0-51.0) % Plt Count 359 D (150-450) th/mm3 BMP 08/31/18 04:48 Sodium 138 Potassium 3.9 Chloride 104 Carbon Dioxide 19.0 L BUN 12 Creatinine 0.96 Calcium 8.1 L Cardiac Enzymes 08/31/18 Range/Units 04:48 Troponin I Less than 0.02 L (0.02-0.05) ng/mL Liver Function 08/31/18 Range/Units 04:48 Total Bilirubin 0.8 (0.2-1.0) mg/dL AST 24 (15-37) U/L ALT 25 (12-78) U/L Alkaline Phosphatase 114 (45-117) U/L Albumin 3.8 (3.4-5.0) g/dL - Imaging Impressions Chest X-Ray 08/31/18 04:36 CONCLUSION: Hyperinflated lungs likely from COPD. Chest CTA 08/31/18 06:46 CONCLUSION: 1. No evidence of pulmonary emboli. 2. Severe centrilobular emphysema and a new left lower lobe airspace consolidation. This may represent an acute infectious process such as pneumonia. Caprini VTE Risk Assessment Caprini VTE Risk Assessment: Moderate/High Risk (score >= 2) (On SCD) Caprini Risk Assessment Model: Point Value = 1 Point Value = 2 Point Value = 3 Point Value = 5 Age 41-60 Minor surgery BMI > 25 kg/m2 Swollen legs Varicose veins or History of unexplained or recurrent spontaneous Oral contraceptives or hormone replacement Sepsis (< 1 month) Serious lung disease, including pneumonia (< 1 month) Abnormal pulmonary function Acute myocardial infarction Congestive heart failure (< 1 month) History of inflammatory bowel disease Medical patient at bed rest Age 61-74 Arthroscopic surgery Major open surgery (> 45 min) Laparoscopic surgery (> 45 min) Malignancy Confined to bed (> 72 hours) Immobilizing plaster cast Central venous access Age >= 75 History of VTE Family history of VTE Factor V Leiden Prothrombin [id number] Lupus anticoagulant Anticardiolipin antibodies Elevated serum homocysteine Heparin-induced thrombocytopenia Other congenital or acquired thrombophilia Stroke (< 1 month) Elective arthroplasty Hip, pelvis, or leg fracture Acute spinal cord injury (< 1 month) Prophylaxis Regimen: Total Risk Factor Score Risk Level Prophylaxis Regimen 0-1 Low Early ambulation 2 Moderate Order ONE of the following: *Sequential Compression Device (SCD) *Heparin 5000 units SQ BID 3-4 Higher Order ONE of the following medications: *Heparin 5000 units SQ TID *Enoxaparin/Lovenox 40 mg SQ daily (WT < 150 kg, CrCl > 30 mL/min) *Enoxaparin/Lovenox 30 mg SQ daily (WT < 150 kg, CrCl > 10-29 mL/min) *Enoxaparin/Lovenox 30 mg SQ BID (WT < 150 kg, CrCl > 30 mL/min) AND/OR *Sequential Compression Device (SCD) 5 or more Highest Order ONE of the following medications: *Heparin 5000 units SQ TID (Preferred with Epidurals) *Enoxaparin/Lovenox 40 mg SQ daily (WT < 150 kg, CrCl > 30 mL/min) *Enoxaparin/Lovenox 30 mg SQ daily (WT < 150 kg, CrCl > 10-29 mL/min) *Enoxaparin/Lovenox 30 mg SQ BID (WT < 150 kg, CrCl > 30 mL/min) AND *Sequential Compression Device (SCD) Assessment and Plan - Assessment (1) COPD exacerbation Code(s): J44.1 - Chronic obstructive pulmonary disease with (acute) exacerbation Status: Acute - Plan This a 58-year-old male being admitted for COPD exacerbation. 1. COPD exacerbation -Consulted pulmonology, recommendations appreciated -Started on methylprednisolone 60 mg IV every 6 hours -Albuterol 2.5 mg every 2 hours as needed -Symbicort 2 puffs twice daily 2. History of A. fib currently not on anything -Consulted cardiology, recommendations appreciated -Placed on heparin DVT prophylaxis with SCD and heparin Code Status: full Discharge Planning: Following further pulmonary workup
[2018-08-31] MEDS ORDERED: Warfarin Consult Pharmacy OTHER PRN (09:49)
--- NOTE | 2018-08-31 10:18 | ECG ---
Date Performed: 08/31/2018 Time Performed: 04:39:37 PTAGE: 58 years EKG: SINUS TACHYCARDIA POSSIBLE LEFT ATRIAL ENLARGEMENT MODERATE ST DEPRESSION ABNORMAL ECG Sinc e the PREVIOUS TRACING , no significant change noted PREVIOUS TRACIN08/15/2018 16.34 DOCTOR: Angel Ramsey Interpretating Date/Time 08/31/2018 10:17:06
[2018-08-31] MEDS: MethylPREDNISolone Sod Succinate Inj 40 MG/ML Vial IV.PUSH SCH ×3 (10:26→22:28)
[2018-08-31] MEDS: Budesonide-Formoterol 80/4.5 MCG 6.9 GM Inhaler INH SCH ×2 (10:29→21:16)
--- NOTE | 2018-08-31 10:37 | MB ---
cc: Antolin Grewal MD DATE: 08/31/2018 REASON FOR CONSULTATION: History of atrial fibrillation. HISTORY OF PRESENT ILLNESS: The patient is a pleasant 58-year-old gentleman who apparently has a history of atrial fibrillation, he says, documented at [facility] about 2 years ago, and he was started on Eliquis. He unfortunately lost his insurance and has not been able to pay for Eliquis, so he has not been on any anticoagulation in quite some time. The patient continues to smoke (counseled against at length) and presents with shortness of breath, diagnosed with a COPD exacerbation. I have been asked to comment regarding his atrial fibrillation. The patient denies any specific symptoms other than his shortness of breath. He gets aches and pains including in his chest, but he does not think it is heart related. PAST MEDICAL HISTORY: Tobacco abuse, COPD, atrial fibrillation (previously on Eliquis), hypertension. CURRENT MEDICATIONS: 1. Tylenol. 2. Albuterol. 3. Subcutaneous heparin. ALLERGIES: NO KNOWN DRUG ALLERGIES. PHYSICAL EXAMINATION: VITAL SIGNS: Afebrile, pulse 110, respiratory rate 30, BP 138/80, saturating 94 on room air. GENERAL: Pleasant gentleman in no distress. NECK: No JVD. LUNGS: Very decreased breath sounds in all schneider. HEART: Distant heart sounds. No major murmurs appreciated. ABDOMEN: Benign. EXTREMITIES: No edema. LABORATORY DATA: Sodium 138, potassium 3.9, chloride 104, bicarbonate 19.0, BUN 12, creatinine 0.96, glucose 91. Troponin is negative x1. EKG shows sinus tachycardia with diffuse nonspecific ST changes. IMPRESSION: 1. History of atrial fibrillation. The patient apparently has history of atrial fibrillation, but not on anticoagulation due to finances. His stroke risk is relatively low with a CHADS-VASc score only of 1 for hypertension. However, I do think his stroke risk is probably higher than a typical CHADS-VASc 1 patient due to his ongoing tobacco abuse, severe COPD, and general poor health. I will start him on warfarin. Hopefully, he can establish with an outpatient primary physician to assist with INR monitoring. I will start him on low-dose oral Cardizem to assist with some rate control. I will have him undergo an echocardiogram. 2. Abnormal EKG. This patient's EKG does appear somewhat ischemic. I will have him undergo a nuclear stress test as well. Further recommendations based on the above, but if no significant findings on the stress test or echocardiogram, I will sign off. Thank you again for the opportunity to participate in this patient's care. MD JUAN MANUEL Mcmanus/analia , 09:47 AM , 09:54 AM
--- NOTE | 2018-08-31 15:08 | ECHRPT ---
Indication: COPD CONCLUSIONS The left ventricular systolic function is normal with an estimated ejection fraction in the range of 55-60%. Normal left ventricular size. Wall thickness is normal. No regional wall motion abnormalities are present. The pulmonary valve is not well visualized. TDS due to copd/tachycardia BP: / HR: Rhythm: Sinus MEASUREMENTS (Male / Female) Normal Values Technical Quality:Technically difficult study 2D ECHO LV Diastolic Diameter PLAX 3.4 cm 4.2 - 5.9 / 3.9 - 5.3 cm LV Systolic Diameter PLAX 2.3 cm IVS Diastolic Thickness 1.0 cm 0.6 - 1.0 / 0.6 - 0.9 cm LVPW Diastolic Thickness 0.9 cm 0.6 - 1.0 / 0.6 - 0.9 cm LV Relative Wall Thickness 0.6 LVOT Diameter 1.9 cm M-MODE Aortic Root Diameter MM 2.2 cm AV Cusp Separation MM 1.8 cm DOPPLER AV Peak Velocity 117.0 cm/s AV Peak Gradient 5.5 mmHg LVOT Peak Velocity 120.0 cm/s LVOT Peak Gradient 5.8 mmHg AV Area Cont Eq pk 2.9 cm MV Area PHT 4.2 cm Mitral E Point Velocity 71.1 cm/s Mitral A Point Velocity 98.2 cm/s Mitral E to A Ratio 0.7 PV Peak Velocity 103.0 cm/s PV Peak Gradient 4.2 mmHg FINDINGS LEFT VENTRICLE The left ventricular systolic function is normal with an estimated ejection fraction in the range of 55-60%. Normal left ventricular size. Wall thickness is normal. No regional wall motion abnormalities are present. Doppler parameters are consistent with impaired left ventricular relaxtion (grade 1 diastolic dysfun ction). RIGHT VENTRICLE Normal right ventricular size and systolic function. LEFT ATRIUM The left atrial size is normal. RIGHT ATRIUM The right atrial size is normal. ATRIAL SEPTUM Normal atrial septal thickness without atrial level shunting by limited color doppler interrogation. AORTA The aortic root and proximal ascending aorta are normal in size on limited imaging. MITRAL VALVE Structurally normal mitral valve. No mitral valve stenosis or regurgitation. AORTIC VALVE Trileaflet aortic valve. No aortic valve stenosis or regurgitation. TRICUSPID VALVE Structurally normal tricuspid valve. No tricuspid valve stenosis or regurgitation. PULMONARY VALVE The pulmonary valve is not well visualized. VESSELS The inferior vena cava is normal in size. PERICARDIUM No pericardial effusion. Antolin Grewal MD (Electronically Signed) Final Date:31 August 2018 15:07
--- NOTE | 2018-08-31 16:01 | MB ---
cc: Inderjit Jansen MD DATE: 08/31/2018 REASON FOR CONSULTATION: COPD exacerbation. HISTORY OF PRESENT ILLNESS: Mr. Combs is a 58-year-old male with a known history of COPD, who was admitted with increasing shortness of breath for 2-3 days prior to his hospitalization, progressively worse despite using his bronchodilators at home. His appetite has been poor. He denies history of fever or chills. No hemoptysis. No TB. No industrial exposure. PAST MEDICAL HISTORY: 1. COPD. 1. Atrial fibrillation. 2. Lung cancer post-lobectomy. FAMILY HISTORY: Noncontributory. SOCIAL HISTORY: Over 20-vfoj-incu smoking history, continues to smoke until present. Does not drink any alcohol. Does not use drugs. MEDICATIONS: 1. Nebulized albuterol-ipratropium. 2. Cardizem. 3. Solu-Medrol intravenously. 4. Trazodone. ALLERGIES: NONE KNOWN TO MEDICATION. REVIEW OF SYSTEMS: A 12-point review of systems as per HPI and past history, otherwise negative. PHYSICAL EXAMINATION: GENERAL: Patient is alert. VITAL SIGNS: Temperature 98, pulse 90, respirations 20, blood pressure 150/90, oxygen saturation 96% on O2 nasal cannula. HEENT: Unremarkable. Eyes without icterus. NECK: Without adenopathy, thyroid enlargement. Central trachea. CHEST: Scattered rhonchi, wheeze bilaterally. CARDIAC: PMI distant. S1, S2 audible. No murmur. No rub. ABDOMEN: Lax, bowel sounds audible. EXTREMITIES: No clubbing, cyanosis, edema. LABORATORY DATA: White count 32,000, hemoglobin 16, hematocrit 48. Sodium 138, potassium 3.9, BUN 12, creatinine 0.6. A CT angiogram without evidence of pulmonary emboli; severe COPD; left lower lobe pneumonia. IMPRESSION: 1. Chronic obstructive pulmonary disease exacerbation. 2. Pneumonia. 3. Status post lobectomy for lung cancer. PLAN: The patient will be maintained on oxygen therapy as needed. Continue antibiotic therapy, bronchodilator therapy. Chest x-ray will be followed. I do thank you for asking me to partake in Mr. Combs's care. Inderjit Jansen MD WWW/anam , 02:53 PM , 02:59 PM
[2018-08-31] MEDS: dilTIAZem CD 240 MG Capsule PO SCH (16:05)
[2018-08-31] MEDS: Heparin - SQ 10,000 UNITS/ML Vial SQ SCH ×2 (16:16→21:15)
[2018-08-31] MEDS: traZODone 100 MG Tablet PO SCH (21:15)
[2018-09-01] MEDS: MethylPREDNISolone Sod Succinate Inj 40 MG/ML Vial IV.PUSH SCH ×4 (04:09→22:11)
[2018-09-01] MEDS: Heparin - SQ 10,000 UNITS/ML Vial SQ SCH ×3 (06:02→21:51)
[2018-09-01] MEDS: Budesonide-Formoterol 80/4.5 MCG 6.9 GM Inhaler INH SCH ×2 (08:01→20:09)
[2018-09-01 08:02] LABS: Baso % (Auto) 0.1 % (0.0-2.0); Hematocrit 40.1 % (39.0-51.0); Hemoglobin 14.3 gm/dL (13.0-17.0); Lymph # (Auto) 0.7 th/mm3 (1.0-4.8); Lymph % (Auto) 2.8 % (9.0-44.0); Mean Corpuscular HGB Conc 35.7 % (32.0-36.0); Mean Corpuscular Hemoglobin 32.7 pg (27.0-34.0); Mean Corpuscular Volume 91.6 fL (80.0-100.0); Mean Platelet Volume 7.7 fL (7.0-11.0); Mono # (Auto) 0.4 th/mm3 (0.0-0.9); Mono % (Auto) 1.8 % (0.0-8.0); Neut # (Auto) 23.1 th/mm3 (1.8-7.7); Neut % (Auto) 95.3 % (16.0-70.0); Platelet Count 248 th/mm3 (150-450); Red Blood Count 4.37 mil/mm3 (4.50-5.90); Red Cell Distribution Width 12.8 % (11.6-17.2); White Blood Count 24.2 th/mm3 (4.0-11.0)
[2018-09-01 08:04] LABS: INR 1.2 Ratio; Prothrombin Time 12.3 sec (9.8-11.6)
[2018-09-01 08:23] LABS: Alanine Aminotransferase 21 U/L (12-78); Albumin 3.4 g/dL (3.4-5.0); Alkaline Phosphatase 91 U/L (45-117); Anion Gap 6 meq/L (5-15); Aspartate Aminotransferase 13 U/L (15-37); Blood Urea Nitrogen 16 mg/dL (7-18); Calcium 8.9 mg/dL (8.5-10.1); Carbon Dioxide 25.8 meq/L (21.0-32.0); Chloride 106 meq/L (98-107); Glomerular Filtration Rate 72 mL/min (>89); Glucose,Random 210 mg/dL (74-106); Potassium 3.1 meq/L (3.5-5.1); Sodium 138 meq/L (136-145); Total Protein 7.1 g/dL (6.4-8.2)
[2018-09-01] MEDS ORDERED: Regadenoson Inj 0.4 MG/5 ML Syringe IV.PUSH ONE (09:23)
[2018-09-01] MEDS: dilTIAZem CD 240 MG Capsule PO SCH (10:13)
--- NOTE | 2018-09-01 10:22 | NM ---
EXAM DATE: 09/01/2018 10:10 AM EST AGE/SEX: 58 years / Male INDICATIONS:Abnormal EKG. Atrial fibrillation Dyspnea. CLINICAL DATA: This is the patient's initial encounter. Patient reports that signs and symptoms have been present for 1 day and indicates a pain score of 0/10. MEDICAL/SURGICAL HISTORY: Chronic obstructive pulmonary disease. Carcinoma, lung. Smoker. Lob ectomy. COMPARISON: No prior exams available for comparison. DOSE: 31.5 mCi Tc 99m Myoview at rest 32.2 mCi [id number] at stress 0.4 mg Lexiscan STRESS SYMPTOMS: Dyspnea and lightheadedness. EJECTION FRACTION: > 70 % TECHNIQUE: The patient underwent pharmacologic stress with infusion of prescribed dose. Continuous ECG tracing was monitored during stress. Gated SPECT imaging was performed after stress and conventi onal SPECT imaging was performed at rest. The examination was performed on a SPECT/CT scanner, both attenuation and non-corrected datasets were reviewed. Two day protocol was used. FINDINGS: Distribution: The maximum perfused segment at stress is in the anterior wall. Perfusion Study: The pattern of perfusion at stress is within normal limits. Gated Study: There are intact wall motion and wall thickening without hypokinetic or dyskinetic segm ents. The ejection fraction is calculated at > 70%. RISK CATEGORY: Low (<1% Annual Motality Rate) CONCLUSION: 1. No evidence of fixed or reversible perfusion defect. Normal wall motion and ejection fraction. Electronically signed by: Leslie Bee MD Board Certified Radiologist 09/01/2018 10:20 AM Arlyn CHIRINOS
--- NOTE | 2018-09-01 11:03 | P.PNCA ---
Subjective Interval history: Pt still w/ copd type breathing, no cardiac complaints. Medications and Allergies Active Medications: Active Medications Acetaminophen (Tylenol) 650 mg PO Q4H PRN PRN Reason: Temp > 100.4 Al Hydroxide/Mg Hydroxide (Milk Of Magnesia Liq) 30 ml PO Q12H PRN PRN Reason: Mild Constipation Albuterol (Albuterol Neb (Prn)) 2.5 mg NEB Q2HR NEB PRN PRN Reason: SHORTNESS OF BREATH Albuterol (Duoneb Neb ([facility])) 1 ampul NEB Q4HR NEB [facility] Last Admin: 09/01/18 10:12 Dose: 1 ampul Bisacodyl (Dulcolax Supp) 10 mg RECTAL DAILY PRN PRN Reason: SEVERE CONSITIPATION Budesonide/Formoterol Fumarate (Symbicort 80/4.5 Mcg Inh) 2 puff INH BID [facility] Last Admin: 09/01/18 08:01 Dose: 2 puff Diltiazem HCl (Cardizem Cd 24hr) 240 mg PO DAILY [facility] Last Admin: 09/01/18 10:13 Dose: 240 mg Heparin Sodium (Porcine) (Heparin Inj) 5,000 units SQ Q8HR [facility] Last Admin: 09/01/18 06:02 Dose: 5,000 units Lactulose (Lactulose Liq) 30 ml PO DAILY PRN PRN Reason: SEVERE CONSITIPATION Methylprednisolone Sodium Succinate (Solumedrol Inj) 60 mg IV.PUSH Q6H [facility] Last Admin: 09/01/18 10:13 Dose: 60 mg Ondansetron HCl (Zofran Inj) 4 mg IV.PUSH Q6H PRN PRN Reason: NAUSEA OR VOMITING Pharmacy Profile Note (Coumadin Consult Pharmacy) 1 each OTHER UNSCH PRN PRN Reason: PHARMACY DOCUMENTATION Sennosides (Senokot) 17.2 mg PO Q12H PRN PRN Reason: Moderate Constipation Sodium Chloride (Ns Flush) 2 ml IV.FLUSH BID [facility] Last Admin: 09/01/18 08:01 Dose: 2 ml Sodium Chloride (Ns Flush) 2 ml IV.FLUSH PRN PRN PRN Reason: FLUSH AFTER USING IV ACCESS Trazodone HCl (Desyrel) 150 mg PO HS [facility] Last Admin: 08/31/18 21:15 Dose: 150 mg Warfarin Sodium (Coumadin) 5 mg PO DAILY@1600 [facility] Last Admin: 08/31/18 16:06 Dose: 5 mg Allergies Allergy/AdvReac Type Severity Reaction Status Date / Time No Known Allergies Allergy Verified 06/28/18 07:23 Home Medications Medication Instructions Recorded Confirmed Type trazodone 150 mg PO HS 06/28/18 08/31/18 History budesonide-formoterol [Symbicort] 2 puff INHALATION BID 08/31/18 08/31/18 History Physical Exam Vital signs: Vital Signs 08/31/18 12:00 08/31/18 16:00 08/31/18 16:10 Temperature 98.0 F 97.8 F Pulse Rate 113 H 105 H 111 H Respiratory Rate 20 20 24 Blood Pressure 151/78 H 171/82 H Pulse Oximetry 94 L 92 L 96 08/31/18 20:00 08/31/18 20:50 09/01/18 00:00 Temperature 97.7 F 97.3 F L Pulse Rate 89 85 81 Respiratory Rate 18 16 18 Blood Pressure 127/62 118/68 Pulse Oximetry 96 94 L 09/01/18 00:08 09/01/18 03:37 09/01/18 08:00 Temperature 97.5 F L Pulse Rate 83 89 78 Respiratory Rate 16 18 18 Blood Pressure 110/56 L Pulse Oximetry 94 L 09/01/18 10:13 Temperature Pulse Rate 78 Respiratory Rate 2 L Blood Pressure Pulse Oximetry Intake & Output 08/31/18 09/01/18 09/01/18 18:59 06:59 18:59 Intake Total 240 / 240 0 / 0 Output Total 750 / 750 Balance -510 / -510 0 / 0 Weight 75.9 kg 75.7 kg Intake: Oral 240 / 240 0 / 0 Tube Feeding 0 / 0 Tube Irrigant 0 / 0 Output: Urine 750 / 750 Other: # Voids 2 1 # Bowel Movements 0 Weight On Admission 75.9 kg - Constitutional no acute distress - Routine HEENT Exam Head: Present: normocephalic Eye: Present: EOMI ENT: Present: mucous membranes moist - Routine Neck Exam Absent: JVD - Routine Respiratory Exam Present: decreased breath sounds, distant breath sounds, diminished air movement - Routine Cardiovascular Exam Present: RRR - Routine Abdominal Exam Present: soft - Routine Extremities Exam Absent: edema Results 09/01/18 07:07 09/01/18 07:07 Cardiac Enzymes 08/31/18 08/31/18 09/01/18 Range/Units 04:48 13:17 07:07 AST 24 13 L (15-37) U/L Troponin I Less than 0.02 L Less than 0.02 L (0.02-0.05) ng/mL Coagulation 09/01/18 Range/Units 07:07 PT 12.3 H (9.8-11.6) sec CBC 08/31/18 09/01/18 Range/Units 04:48 07:07 WBC 32.3 H 24.2 H (4.0-11.0) th/mm3 RBC 5.30 4.37 L (4.50-5.90) mil/mm3 Hgb 16.9 14.3 D (13.0-17.0) gm/dL Hct 48.5 40.1 (39.0-51.0) % Plt Count 359 D 248 D (150-450) th/mm3 Neut # (Auto) 26.2 H 23.1 H (1.8-7.7) th/mm3 Lymph # (Auto) 3.8 0.7 L (1.0-4.8) th/mm3 Gem # (Auto) 2.1 H 0.4 (0.0-0.9) th/mm3 Eos # (Auto) 0.1 0.0 (0.0-0.4) th/mm3 Baso # (Auto) 0.2 0.0 (0.0-0.2) th/mm3 Comprehensive Metabolic Panel 08/31/18 09/01/18 Range/Units 04:48 07:07 Sodium 138 138 (136-145) meq/L Potassium 3.9 3.1 L D (3.5-5.1) meq/L Chloride 104 106 (98-107) meq/L Carbon Dioxide 19.0 L 25.8 (21.0-32.0) meq/L BUN 12 16 (7-18) mg/dL Creatinine 0.96 1.06 (0.60-1.30) mg/dL Calcium 8.1 L 8.9 D (8.5-10.1) mg/dL AST 24 13 L (15-37) U/L ALT 25 21 (12-78) U/L Alkaline Phosphatase 114 91 (45-117) U/L Total Protein 8.0 7.1 D (6.4-8.2) g/dL Albumin 3.8 3.4 (3.4-5.0) g/dL Intake and Output 08/31/18 09/01/18 09/01/18 22:59 06:59 14:59 Intake Total 240 / 240 0 / 0 Output Total 450 / 450 Balance -210 / -210 0 / 0 Intake: Oral 240 / 240 0 / 0 Tube Feeding 0 / 0 Tube Irrigant 0 / 0 Output: Urine 450 / 450 Other: # Voids 2 1 # Bowel Movements 0 Weight 75.7 kg - Imaging and Cardiology Imaging: Impressions Myocardial Perfusion Scan Nuc Med 08/31/18 00:00 CONCLUSION: 1. No evidence of fixed or reversible perfusion defect. Normal wall motion and ejection fraction. Chest X-Ray 08/31/18 04:36 CONCLUSION: Hyperinflated lungs likely from COPD. Chest CTA 08/31/18 06:46 CONCLUSION: 1. No evidence of pulmonary emboli. 2. Severe centrilobular emphysema and a new left lower lobe airspace consolidation. This may represent an acute infectious process such as pneumonia. Assessment and Plan - Assessment (1) COPD exacerbation Code(s): J44.1 - Chronic obstructive pulmonary disease with (acute) exacerbation Status: Acute (2) Paroxysmal atrial fibrillation Code(s): I48.0 - Paroxysmal atrial fibrillation Status: Acute Plan: on warfarin, diltiazem; echo shows good lvef (3) Abnormal EKG Code(s): R94.31 - Abnormal electrocardiogram [ECG] [EKG] Status: Acute Plan: now s/p non-ischemic nuc stress (4) Tobacco abuse counseling Code(s): Z71.6 - Tobacco abuse counseling Status: Acute Plan: counseled again at length - Plan Will sign off at this time, please call with questions.
[2018-09-01] MEDS: Azithromycin Inj 500 MG in Sodium Chlor 0.9% Inj 250 ML IV.SIG SCH (14:09)
--- NOTE | 2018-09-01 14:55 | P.PNIM ---
Subjective Interval history: 58-year-old male admitted for COPD exacerbation. He still states that he is short of breath, working to breathe but not struggling. He has been living in his car and it has been cold outside, which has aggravated his COPD. Physical Exam Vital signs: Last Vital Signs Temp 97.7 F 09/01/18 12:00 Pulse 102 H 09/01/18 13:02 Resp 24 09/01/18 13:02 BP 121/64 09/01/18 12:00 Pulse Ox 93 L 09/01/18 12:00 Intake & Output 08/30/18 08/31/18 09/01/18 09/02/18 06:59 06:59 06:59 06:59 Intake Total 240 / 240 Output Total 750 / 750 Balance -510 / -510 Weight 79.379 kg 75.7 kg Narrative: GENERAL: AAOx3, no acute distress, thin SKIN: Warm and dry. No rashes HEAD: Atruamtic, normocephalic. EYES: No scleral icterus. No injection or drainage. ENT: Moist mucous membranes, patent nares, no erythema of oropharynx. NECK: Supple, trachea midline. No JVD or lymphadenopathy. Normal thyroid. CARDIOVASCULAR: Regular rate and rhythm. No murmurs, gallops, or rubs. RESPIRATORY: Scattered congestive sounds and moderate wheezing throughout both lungs. No accessory muscle use. GASTROINTESTINAL: Abdomen soft, non-tender, nondistended, normal active bowel sounds MUSCULOSKELETAL: No cyanosis, or edema. NEURO: CN II-XII grossly intact, no focal deficits, no slurring of speech Results Labs CBC & Chem 7: 09/01/18 07:07 09/01/18 07:07 Imaging Imaging: Impressions Myocardial Perfusion Scan Nuc Med 08/31/18 00:00 CONCLUSION: 1. No evidence of fixed or reversible perfusion defect. Normal wall motion and ejection fraction. Assessment and Plan (1) COPD exacerbation: Code(s): J44.1 - Chronic obstructive pulmonary disease with (acute) exacerbation Status: Acute (2) Paroxysmal atrial fibrillation: Code(s): I48.0 - Paroxysmal atrial fibrillation Status: Acute (3) Abnormal EKG: Code(s): R94.31 - Abnormal electrocardiogram [ECG] [EKG] Status: Acute (4) Tobacco abuse counseling: Code(s): Z71.6 - Tobacco abuse counseling Status: Acute Plan COPD exacerbation Continue Solu-Medrol 60 mg IV every 6 Continue duo nebs every 2 hours as needed Budesonide nebulizer added Prednisone 50 mg p.o. daily added Azithromycin added as empiric coverage for possible infectious causes of COPD exacerbation Appreciate pulmonology consult Atrial fibrillation Patient has poor follow-up and is not on any medication Heart sounds regular today Cardiology was consulted on admission, appreciate consult DVT prophylaxis Heparin
--- NOTE | 2018-09-01 16:04 | P.PN ---
Subjective Interval history: ALERT LESS SOB Physical Exam Vital signs: Vital Signs 08/31/18 16:10 08/31/18 20:00 08/31/18 20:50 Temperature 97.7 F Pulse Rate 111 H 89 85 Respiratory Rate 24 18 16 Blood Pressure 127/62 Pulse Oximetry 96 96 09/01/18 00:00 09/01/18 00:08 09/01/18 03:37 Temperature 97.3 F L Pulse Rate 81 83 89 Respiratory Rate 18 16 18 Blood Pressure 118/68 Pulse Oximetry 94 L 09/01/18 08:00 09/01/18 10:13 09/01/18 12:00 Temperature 97.5 F L 97.7 F Pulse Rate 78 78 88 Respiratory Rate 18 2 L 18 Blood Pressure 110/56 L 121/64 Pulse Oximetry 94 L 93 L 09/01/18 13:02 Temperature Pulse Rate 102 H Respiratory Rate 24 Blood Pressure Pulse Oximetry Intake & Output 08/31/18 09/01/18 09/01/18 18:59 06:59 18:59 Intake Total 240 / 240 0 / 0 250 / 250 Output Total 750 / 750 Balance -510 / -510 0 / 0 250 / 250 Weight 75.9 kg 75.7 kg Intake: IV 250 / 250 Azithromycin Inj 500 MG In NS 250 / 250 Inj 250 ML @ 250 mls/hr IV.SIG Q24H [facility] Rx#:[id number] Oral 240 / 240 0 / 0 Tube Feeding 0 / 0 Tube Irrigant 0 / 0 Output: Urine 750 / 750 Other: # Voids 2 1 # Bowel Movements 0 Weight On Admission 75.9 kg Narrative: GENERAL: AAOx3, no acute distress, thin SKIN: Warm and dry. No rashes HEAD: Atruamtic, normocephalic. EYES: No scleral icterus. No injection or drainage. ENT: Moist mucous membranes, patent nares, no erythema of oropharynx. NECK: Supple, trachea midline. No JVD or lymphadenopathy. Normal thyroid. CARDIOVASCULAR: Regular rate and rhythm. No murmurs, gallops, or rubs. RESPIRATORY: Scattered congestive sounds and moderate wheezing throughout both lungs. No accessory muscle use. GASTROINTESTINAL: Abdomen soft, non-tender, nondistended, normal active bowel sounds MUSCULOSKELETAL: No cyanosis, or edema. NEURO: CN II-XII grossly intact, no focal deficits, no slurring of speech Results - Labs CBC & Chem 7: 09/01/18 07:07 09/01/18 07:07 Laboratory Results - last 24 hr 09/01/18 09/01/18 09/01/18 07:07 07:07 07:07 WBC 24.2 H RBC 4.37 L Hgb 14.3 D Hct 40.1 MCV 91.6 MCH 32.7 MCHC 35.7 RDW 12.8 Plt Count 248 D MPV 7.7 Neut % (Auto) 95.3 H Lymph % (Auto) 2.8 L [place] % (Auto) 1.8 Eos % (Auto) 0.0 Baso % (Auto) 0.1 Neut # (Auto) 23.1 H Lymph # (Auto) 0.7 L [place] # (Auto) 0.4 Eos # (Auto) 0.0 Baso # (Auto) 0.0 WBC Differential . Differential Comment Auto diff final PT 12.3 H INR 1.2 Sodium 138 Potassium 3.1 L D Chloride 106 Carbon Dioxide 25.8 Anion Gap 6 BUN 16 Creatinine 1.06 Estimated GFR 72 L Random Glucose 210 H D Calcium 8.9 D Total Bilirubin 0.7 AST 13 L ALT 21 Alkaline Phosphatase 91 Total Protein 7.1 D Albumin 3.4 - Imaging Impressions Myocardial Perfusion Scan Nuc Med 08/31/18 00:00 CONCLUSION: 1. No evidence of fixed or reversible perfusion defect. Normal wall motion and ejection fraction. Assessment and Plan - Plan COPD EXACERBATION IMPROVING PLAN O2 NEEDED BRONCHODILATOR THERAPY INCREASE ACTIVITY
[2018-09-01] MEDS: traZODone 100 MG Tablet PO SCH (20:09)
[2018-09-02] MEDS: MethylPREDNISolone Sod Succinate Inj 40 MG/ML Vial IV.PUSH SCH ×5 (05:14→22:13)
[2018-09-02] MEDS: Heparin - SQ 10,000 UNITS/ML Vial SQ SCH ×3 (05:15→21:23)
[2018-09-02 07:52] LABS: INR 3.1 Ratio; Prothrombin Time 31.1 sec (9.8-11.6)
[2018-09-02] MEDS: dilTIAZem CD 240 MG Capsule PO SCH (10:00)
[2018-09-02] MEDS: Budesonide-Formoterol 80/4.5 MCG 6.9 GM Inhaler INH SCH ×2 (10:00→21:25)
--- NOTE | 2018-09-02 12:17 | P.PNIM ---
Subjective Interval history: Mr. Combs is still having labored breathing, has had no noticeable improvement to his breathing following addition of budesonide nebs. He denies any fevers. He had sinus tachycardia during his nebulizer treatments but it seems to be downward following his routine dose of diltiazem at 10 AM. Physical Exam Vital signs: Last Vital Signs Temp 97.6 F 09/02/18 08:00 Pulse 134 H 09/02/18 09:58 Resp 20 09/02/18 09:38 BP 126/84 09/02/18 08:00 Pulse Ox 93 L 09/02/18 09:38 Intake & Output 08/31/18 09/01/18 09/02/18 09/03/18 06:59 06:59 06:59 06:59 Intake Total 240 / 240 970 / 970 Output Total 750 / 750 200 / 200 Balance -510 / -510 770 / 770 Weight 79.379 kg 75.7 kg 79.1 kg Narrative: GENERAL: AAOx3, no acute distress, thin SKIN: Warm and dry. No rashes HEAD: Atruamtic, normocephalic. EYES: No scleral icterus. No injection or drainage. ENT: Moist mucous membranes, patent nares, no erythema of oropharynx. NECK: Supple, trachea midline. No JVD or lymphadenopathy. Normal thyroid. CARDIOVASCULAR: Tachycardia. No murmurs, gallops, or rubs. RESPIRATORY: Scattered congestive sounds and moderate wheezing throughout both lungs. Minimal improvement compared to yesterday .no accessory muscle use. GASTROINTESTINAL: Abdomen soft, non-tender, nondistended, normal active bowel sounds MUSCULOSKELETAL: No cyanosis, or edema. NEURO: CN II-XII grossly intact, no focal deficits, no slurring of speech Results Labs CBC & Chem 7: 09/01/18 07:07 09/01/18 07:07 Assessment and Plan (1) COPD exacerbation: Code(s): J44.1 - Chronic obstructive pulmonary disease with (acute) exacerbation Status: Acute (2) Paroxysmal atrial fibrillation: Code(s): I48.0 - Paroxysmal atrial fibrillation Status: Acute (3) Abnormal EKG: Code(s): R94.31 - Abnormal electrocardiogram [ECG] [EKG] Status: Acute (4) Tobacco abuse counseling: Code(s): Z71.6 - Tobacco abuse counseling Status: Acute Plan COPD exacerbation Continue Solu-Medrol 60 mg IV every 6, extra dose given today Continue duo nebs every 2 hours as needed, budesonide twice daily Continue azithromycin Continue prednisone 50 mg p.o. daily Azithromycin added as empiric coverage for possible infectious causes of COPD exacerbation Appreciate pulmonology consult Atrial fibrillation Patient has poor follow-up and is not on any medication Tachycardia with possible irregularity on exam today EKG showed sinus tachycardia without evidence for A. fib Seems to be exacerbated by breathing treatments Change dose time of diltiazem to 8 AM instead of 10 AM DVT prophylaxis Heparin
[2018-09-02] MEDS: Azithromycin Inj 500 MG in Sodium Chlor 0.9% Inj 250 ML IV.SIG SCH (13:24)
[2018-09-02] MEDS ORDERED: MethylPREDNISolone Sod Succinate Inj 125 MG/2 ML Vial IV.PUSH ONE (14:00)
--- NOTE | 2018-09-02 17:37 | P.PN ---
Subjective Interval history: alert less sob less congested Physical Exam Vital signs: Vital Signs 09/01/18 19:59 09/01/18 20:00 09/01/18 23:42 Temperature 97.9 F Pulse Rate 96 H 98 H 101 H Respiratory Rate 18 18 20 Blood Pressure 125/69 Pulse Oximetry 93 L 94 L 09/02/18 00:00 09/02/18 03:27 09/02/18 05:31 Temperature 97.9 F Pulse Rate 94 H 90 105 H Respiratory Rate 18 20 20 Blood Pressure 116/60 Pulse Oximetry 95 09/02/18 08:00 09/02/18 09:38 09/02/18 09:58 Temperature 97.6 F Pulse Rate 155 H 118 H 134 H Respiratory Rate 22 20 Blood Pressure 126/84 Pulse Oximetry 92 L 93 L 09/02/18 12:00 09/02/18 13:15 09/02/18 16:00 Temperature 97.6 F 98.8 F Pulse Rate 155 H 102 H 100 H Respiratory Rate 22 22 20 Blood Pressure 126/84 131/67 Pulse Oximetry 95 09/02/18 16:10 Temperature Pulse Rate 106 H Respiratory Rate 16 Blood Pressure Pulse Oximetry Intake & Output 09/01/18 09/02/18 09/02/18 18:59 06:59 18:59 Intake Total 970 / 970 Output Total 200 / 200 Balance 770 / 770 Weight 79.1 kg Intake: IV 250 / 250 Azithromycin Inj 500 MG In NS 250 / 250 Inj 250 ML @ 250 mls/hr IV.SIG Q24H [facility] Rx#:[id number] Oral 720 / 720 Output: Urine 200 / 200 Other: # Voids 2 2 Date of Last Bowel Movement 09/01/18 # Bowel Movements 1 1 Narrative: GENERAL: AAOx3, no acute distress, thin SKIN: Warm and dry. No rashes HEAD: Atruamtic, normocephalic. EYES: No scleral icterus. No injection or drainage. ENT: Moist mucous membranes, patent nares, no erythema of oropharynx. NECK: Supple, trachea midline. No JVD or lymphadenopathy. Normal thyroid. CARDIOVASCULAR: Tachycardia. No murmurs, gallops, or rubs. RESPIRATORY: Scattered congestive sounds and moderate wheezing throughout both lungs. Minimal improvement compared to yesterday .no accessory muscle use. GASTROINTESTINAL: Abdomen soft, non-tender, nondistended, normal active bowel sounds MUSCULOSKELETAL: No cyanosis, or edema. NEURO: CN II-XII grossly intact, no focal deficits, no slurring of speech Results - Labs CBC & Chem 7: 09/01/18 07:07 09/01/18 07:07 Laboratory Results - last 24 hr 09/02/18 06:33 PT 31.1 H D INR 3.1 Assessment and Plan - Plan COPD EXACERBATION IMPROVING PLAN O2 NEEDED BRONCHODILATOR THERAPY INCREASE ACTIVITY
[2018-09-02] MEDS ORDERED: Influenza (Quadrivalent) Vaccine 0.5 ML Syringe IM ONE (18:00)
[2018-09-02] MEDS: traZODone 100 MG Tablet PO SCH (21:23)
[2018-09-03] MEDS: MethylPREDNISolone Sod Succinate Inj 40 MG/ML Vial IV.PUSH SCH ×4 (05:40→22:11)
[2018-09-03] MEDS: Heparin - SQ 10,000 UNITS/ML Vial SQ SCH ×3 (05:42→22:09)
[2018-09-03 07:08] LABS: INR 3.2 Ratio; Prothrombin Time 32.7 sec (9.8-11.6)
[2018-09-03] MEDS: Budesonide-Formoterol 80/4.5 MCG 6.9 GM Inhaler INH SCH ×2 (08:38→22:16)
[2018-09-03] MEDS: dilTIAZem CD 240 MG Capsule PO SCH (08:38)
--- NOTE | 2018-09-03 09:45 | P.PN ---
Subjective Interval history: alert less SOB Physical Exam Vital signs: Vital Signs 09/02/18 09:58 09/02/18 12:00 09/02/18 13:15 Temperature 97.6 F Pulse Rate 134 H 155 H 102 H Respiratory Rate 22 22 Blood Pressure 126/84 Pulse Oximetry 09/02/18 16:00 09/02/18 16:10 09/02/18 19:54 Temperature 98.8 F Pulse Rate 100 H 106 H 91 H Respiratory Rate 20 16 24 Blood Pressure 131/67 Pulse Oximetry 95 92 L 09/02/18 20:00 09/02/18 23:17 09/02/18 23:50 Temperature 97.8 F 98.4 F Pulse Rate 92 H 92 H 85 Respiratory Rate 17 24 18 Blood Pressure 112/58 L 107/57 L Pulse Oximetry 94 L 94 L 09/03/18 03:09 09/03/18 06:13 09/03/18 07:15 Temperature 97.8 F Pulse Rate 95 H 99 H 106 H Respiratory Rate 24 24 20 Blood Pressure 133/73 Pulse Oximetry 95 09/03/18 08:53 Temperature Pulse Rate 91 H Respiratory Rate 20 Blood Pressure Pulse Oximetry 95 Intake & Output 09/02/18 09/03/18 09/03/18 18:59 06:59 18:59 Intake Total 825 / 825 700 / 700 Output Total 650 / 650 Balance 825 / 825 50 / 50 Weight 79.1 kg Intake: IV 250 / 250 Azithromycin Inj 500 MG In NS 250 / 250 Inj 250 ML @ 250 mls/hr IV.SIG Q24H [facility] Rx#:[id number] Oral 575 / 575 700 / 700 Output: Urine 650 / 650 Other: # Voids 3 Date of Last Bowel Movement 09/02/18 # Bowel Movements 0 Narrative: GENERAL: AAOx3, no acute distress, thin SKIN: Warm and dry. No rashes HEAD: Atruamtic, normocephalic. EYES: No scleral icterus. No injection or drainage. ENT: Moist mucous membranes, patent nares, no erythema of oropharynx. NECK: Supple, trachea midline. No JVD or lymphadenopathy. Normal thyroid. CARDIOVASCULAR: Tachycardia. No murmurs, gallops, or rubs. RESPIRATORY: Scattered congestive sounds and moderate wheezing throughout both lungs. Minimal improvement compared to yesterday .no accessory muscle use. GASTROINTESTINAL: Abdomen soft, non-tender, nondistended, normal active bowel sounds MUSCULOSKELETAL: No cyanosis, or edema. NEURO: CN II-XII grossly intact, no focal deficits, no slurring of speech Results - Labs CBC & Chem 7: 09/01/18 07:07 09/01/18 07:07 Laboratory Results - last 24 hr 09/03/18 05:47 PT 32.7 H INR 3.2 Assessment and Plan - Plan COPD EXACERBATION IMPROVING PLAN O2 NEEDED BRONCHODILATOR THERAPY INCREASE ACTIVITY
--- NOTE | 2018-09-03 11:16 | CT ---
EXAM DATE: 09/03/2018 11:12 AM EST AGE/SEX: 58 years / Male INDICATIONS: Short of breath. CLINICAL DATA: This is the patient's initial encounter. Patient reports that signs and symptoms have been present for 3 days and indicates a pain score of 4/10. MEDICAL/SURGICAL HISTORY: Chronic obstructive pulmonary disease. Carcinoma, lung. Lobectomy. RADIATION DOSE: 11.72 CTDI (mGy) COMPARISON: [facility] [place], CTA PULMONARY W CONTRAST W 3D, 08/31/2018. [facility] [place], CTA PULMONARY W CONTRAST W 3D, 08/15/2018. . TECHNIQUE: Volumetric scanning was performed using a multi-row detector CT scanner during bolus infu steffi of 75 ml Omnipaque 350 (iohexol) nonionic water-soluble contrast as a single exam dose. The dianne a was post processed with a variety of visualization algorithms including full volume maximum intensi ty projection and sliding thin slab reformation. Using automated exposure control and adjustment of t he mA and/or kV according to patient size, radiation dose was kept as low as reasonably achievable to obtain optimal diagnostic quality images. DICOM format image data is available electronically for r eview and comparison. FINDINGS: Pulmonary Arteries: No filling defects are seen in the pulmonary arteries out to the subsegmental ve ssels. The left and right pulmonary arteries are normal in diameter. Lung: Diffuse infiltrate is noted throughout the left upper and lower lobes and to a much lesser deg ree within the right middle lobe consistent with pneumonia until proven otherwise. Underlying severe emphysematous changes and scattered fibrotic scarring are stable. No pulmonary nodule or mass is note d. Effusion: None. Mediastinum: No evidence of mediastinal or hilar adenopathy. Other: The axilla is unremarkable. Degenerative changes are noted throughout the thoracic spine. CONCLUSION: 1. This study is negative for pulmonary embolism. 2. Diffuse infiltrate is noted throughout the left upper and lower lobes and to a much lesser degree within the right middle lobe consistent with pneumonia until proven otherwise. 3. Underlying severe emphysematous changes and scattered fibrotic scarring are stable. Electronically signed by: Laz Rodriguez MD Board Certified Radiologist 09/03/2018 11:15 AM EST
[2018-09-03] MEDS: Ibuprofen 600 MG Tablet PO PRN (15:05)
--- NOTE | 2018-09-03 15:12 | P.PNIM ---
Subjective Interval history: Patient states he feels no better than he did yesterday, is becoming frustrated that his COPD is not turning around. He requests a hand-held inhaler at bedside. Physical Exam Vital signs: Last Vital Signs Temp 97.8 F 09/03/18 10:45 Pulse 90 09/03/18 11:54 Resp 18 09/03/18 11:54 BP 124/79 09/03/18 10:45 Pulse Ox 91 L 09/03/18 10:45 Intake & Output 09/01/18 09/02/18 09/03/18 09/04/18 06:59 06:59 06:59 06:59 Intake Total 240 / 240 970 / 970 1525 / 1525 150 / 150 Output Total 750 / 750 200 / 200 650 / 650 400 / 400 Balance -510 / -510 770 / 770 875 / 875 -250 / -250 Weight 75.7 kg 79.1 kg 79.1 kg Narrative: GENERAL: AAOx3, no acute distress, thin SKIN: Warm and dry. No rashes HEAD: Atruamtic, normocephalic. EYES: No scleral icterus. No injection or drainage. ENT: Moist mucous membranes, patent nares, no erythema of oropharynx. NECK: Supple, trachea midline. No JVD or lymphadenopathy. Normal thyroid. CARDIOVASCULAR: Tachycardia. No murmurs, gallops, or rubs. RESPIRATORY: Scattered congestive sounds and moderate wheezing throughout both lungs. No improvement compared to yesterday .no accessory muscle use. GASTROINTESTINAL: Abdomen soft, non-tender, nondistended, normal active bowel sounds MUSCULOSKELETAL: No cyanosis, or edema. NEURO: CN II-XII grossly intact, no focal deficits, no slurring of speech Results Labs CBC & Chem 7: 09/01/18 07:07 09/01/18 07:07 Imaging Imaging: Impressions Chest CTA 09/03/18 00:00 CONCLUSION: 1. This study is negative for pulmonary embolism. 2. Diffuse infiltrate is noted throughout the left upper and lower lobes and to a much lesser degree within the right middle lobe consistent with pneumonia until proven otherwise. 3. Underlying severe emphysematous changes and scattered fibrotic scarring are stable. Assessment and Plan (1) COPD exacerbation: Code(s): J44.1 - Chronic obstructive pulmonary disease with (acute) exacerbation Status: Acute (2) Paroxysmal atrial fibrillation: Code(s): I48.0 - Paroxysmal atrial fibrillation Status: Acute (3) Abnormal EKG: Code(s): R94.31 - Abnormal electrocardiogram [ECG] [EKG] Status: Acute (4) Tobacco abuse counseling: Code(s): Z71.6 - Tobacco abuse counseling Status: Acute Plan COPD exacerbation Continue Solu-Medrol 60 mg IV every 6, duo nebs every 2 hours as needed, budesonide twice daily Large infiltrate present on CTA of chest Discontinue azithromycin, add Levaquin Continue prednisone 50 mg p.o. daily Appreciate pulmonology consult Pneumonia CT angiogram of the chest revealed pervasive infiltrates consistent with pneumonia Abdominal fullness, h/o ascites and liver disease Possibly a contributing factor to his pulmonary edema/infiltrates Ultrasound of abdomen ordered to investigate for causes Lasix started to reduce fluid load in his lung and his abdomen Atrial fibrillation Patient has poor follow-up and is not on any medication Tachycardia with possible irregularity on exam today EKG showed sinus tachycardia without evidence for A. fib Seems to be exacerbated by breathing treatments Change dose time of diltiazem to 8 AM instead of 10 AM DVT prophylaxis Heparin Progress Note: Quality VTE Deep Vein Thrombosis/Pulmonary Embolism Present on Admission: No
--- NOTE | 2018-09-03 16:27 | US ---
EXAM DATE: 09/03/2018 4:20 PM EST AGE/SEX: 58 years / Male INDICATIONS: Abdominal pain. CLINICAL DATA: This is the patient's initial encounter. Patient reports that signs and symptoms have been present for 4 - 6 days and indicates a pain score of 4/10. MEDICAL/SURGICAL HISTORY: Chronic obstructive pulmonary disease. Afib. Lung cancer. . Lung lob ectomy. COMPARISON: [facility] – [place], CT ABDOMEN & PELVIS W CONTRAST, 04/01/2016. . MEASUREMENTS: Liver:__ 17.1 cm. Common Bile Duct:___ 4mm. Right Kidney:___10.4 x 4.9 x 5.1 cm. Left Kidney:___10.5 x 6.3 x 5.3 cm. Spleen:___9.3 cm. FINDINGS: Liver: Normal echogenicity without focal lesion or ductal dilatation. Portal Vein: Hepatopedal flow seen in portal vein. Common Duct: No intraluminal mass or stone visualized. Gallbladder: Demonstrates no wall thickening or pericholecystic fluid. No stones visualized. Pancreas: The visualized portions are within normal limits Right Kidney: Normal echogenicity and cortical thickness. No mass or hydronephrosis. Left Kidney: Normal echogenicity and cortical thickness. No mass or hydronephrosis. Ascites: None Pleural Effusion: None Spleen: No focal lesion. Aorta: Non aneurysmal. IVC: Within normal limits Other: None. CONCLUSION: 1. Unremarkable ultrasound examination of the abdomen. 2. Specifically, no sonographic evidence for cholelithiasis or acute cholecystitis. Electronically signed by: Usama Alexander MD Board Certified Radiologist 09/03/2018 4:25 PM BAO Tucker
--- NOTE | 2018-09-03 16:52 | ECG ---
Date Performed: 09/02/2018 Time Performed: 11:14:41 PTAGE: 58 years EKG: SINUS TACHYCARDIA POSSIBLE RIGHT VENTRICULAR CONDUCTION DELAY NONSPECIFIC ST & T-WAVE ABNOR MALITY ABNORMAL RHYTHM ECG PREVIOUS TRACING : 08/31/2018 04.39 Since the previous tracing, no significant change noted DOCTOR: Joao Garcia Interpretating Date/Time 09/03/2018 16:50:23
[2018-09-03] MEDS: traZODone 100 MG Tablet PO SCH (22:11)
[2018-09-04] MEDS: Heparin - SQ 10,000 UNITS/ML Vial SQ SCH ×2 (05:46→13:50)
[2018-09-04] MEDS: MethylPREDNISolone Sod Succinate Inj 40 MG/ML Vial IV.PUSH SCH (05:46)
[2018-09-04] MEDS: Ibuprofen 600 MG Tablet PO PRN ×2 (05:47→20:06)
[2018-09-04 06:25] LABS: INR 2.3 Ratio; Prothrombin Time 23.4 sec (9.8-11.6)
[2018-09-04] MEDS: dilTIAZem CD 240 MG Capsule PO SCH (08:44)
[2018-09-04] MEDS: Budesonide-Formoterol 80/4.5 MCG 6.9 GM Inhaler INH SCH ×2 (08:44→20:08)
--- NOTE | 2018-09-04 11:30 | P.PNIM ---
Subjective Interval history: -year-old male with multiple exacerbation and large right- sided pneumonia who has failed standard therapy and is having increased work of breathing. I explained that I believe he will benefit from BiPAP to relieve the work of breathing and for comfort overnight. He was transferred to [facility] – [place], [place] for ability to add BiPAP to his regimen. Physical Exam Vital signs: Last Vital Signs Temp 98.7 F 09/04/18 11:06 Pulse 101 H 09/04/18 11:06 Resp 20 09/04/18 11:06 BP 133/82 09/04/18 11:06 Pulse Ox 92 L 09/04/18 11:06 Intake & Output 09/02/18 09/03/18 09/04/18 09/05/18 06:59 06:59 06:59 06:59 Intake Total 970 / 970 1525 / 1525 1390 / 1390 Output Total 200 / 200 650 / 650 2325 / 2325 450 / 450 Balance 770 / 770 875 / 875 -935 / -935 -450 / -450 Weight 79.1 kg 79.1 kg 79.3 kg Narrative: GENERAL: AAOx3, tired from work of breathing, thin SKIN: Warm and dry. No rashes HEAD: Atruamtic, normocephalic. EYES: No scleral icterus. No injection or drainage. ENT: Moist mucous membranes, patent nares, no erythema of oropharynx. NECK: Supple, trachea midline. No JVD or lymphadenopathy. Normal thyroid. CARDIOVASCULAR: Tachycardia. No murmurs, gallops, or rubs. RESPIRATORY: Scattered congestive sounds and moderate wheezing throughout both lungs. Diminished right lung schneider. Poor air exchange. Not improving in 3 days.no accessory muscle use. GASTROINTESTINAL: Abdomen soft, non-tender, nondistended, normal active bowel sounds MUSCULOSKELETAL: No cyanosis, or edema. NEURO: CN II-XII grossly intact, no focal deficits, no slurring of speech Results Labs CBC & Chem 7: 09/01/18 07:07 09/01/18 07:07 Imaging Imaging: Impressions Abdomen Ultrasound 09/03/18 00:00 CONCLUSION: 1. Unremarkable ultrasound examination of the abdomen. 2. Specifically, no sonographic evidence for cholelithiasis or acute cholecystitis. Assessment and Plan (1) COPD exacerbation: Code(s): J44.1 - Chronic obstructive pulmonary disease with (acute) exacerbation Status: Acute (2) Paroxysmal atrial fibrillation: Code(s): I48.0 - Paroxysmal atrial fibrillation Status: Acute (3) Abnormal EKG: Code(s): R94.31 - Abnormal electrocardiogram [ECG] [EKG] Status: Acute (4) Tobacco abuse counseling: Code(s): Z71.6 - Tobacco abuse counseling Status: Acute Plan COPD exacerbation Failure of 4 days of standard incremental increased therapy Large infiltrate present on CTA of chest Continue Levaquin Increase Solu-Medrol to 125 mg 3 times daily Add BiPAP for benefit of increased expiratory pressure system with clearance of progressive infiltrates BiPAP to also assist patient with increased work of breathing Appreciate pulmonology consult Pneumonia CT angiogram of the chest revealed pervasive infiltrates consistent with pneumonia Abdominal fullness, h/o ascites and liver disease Ultrasound of abdomen showed no abnormalities Continue Bumex Atrial fibrillation Patient has poor follow-up and is not on any medication Tachycardia persists, likely related to increased work of breathing compensation for hypoxemia DVT prophylaxis Heparin Progress Note: Quality VTE Deep Vein Thrombosis/Pulmonary Embolism Present on Admission: No
[2018-09-04] MEDS: MethylPREDNISolone Sod Succinate Inj 125 MG/2 ML Vial IV.PUSH SCH ×2 (13:49→17:34)
[2018-09-04 14:26] LABS: ABG Base Excess 1.6 mmol/L (-2-2); ABG PCO2 30 mmHg (38-42); ABG PO2 63 mmHG (61-120)
--- NOTE | 2018-09-04 16:02 | P.PN ---
Subjective Interval history: alert less sob Physical Exam Vital signs: Vital Signs 09/03/18 19:50 09/03/18 20:00 09/03/18 23:54 Temperature 97.8 F 97.9 F Pulse Rate 82 102 H 106 H Respiratory Rate 22 20 22 Blood Pressure 124/71 126/75 Pulse Oximetry 93 L 94 L 92 L 09/04/18 00:00 09/04/18 00:09 09/04/18 03:17 Temperature 97.9 F Pulse Rate 106 H 99 H 102 H Respiratory Rate 22 25 H 19 Blood Pressure 126/75 Pulse Oximetry 92 L 91 L 09/04/18 08:08 09/04/18 08:09 09/04/18 11:06 Temperature 98.7 F Pulse Rate 102 H 101 H Respiratory Rate 20 20 Blood Pressure 133/82 Pulse Oximetry 92 L 92 L 09/04/18 12:12 09/04/18 13:12 09/04/18 14:00 Temperature Pulse Rate 93 H 101 H 107 H Respiratory Rate Blood Pressure Pulse Oximetry 09/04/18 15:00 Temperature Pulse Rate 104 H Respiratory Rate Blood Pressure Pulse Oximetry Intake & Output 09/03/18 09/04/18 09/04/18 18:59 06:59 18:59 Intake Total 150 / 150 1240 / 1240 150 / 150 Output Total 1575 / 1575 750 / 750 450 / 450 Balance -1425 / -1425 490 / 490 -300 / -300 Weight 79.3 kg Intake: IV 150 / 150 150 / 150 Levaquin 750 mg Premix Inj 150 150 / 150 150 / 150 ML @ 100 mls/hr IV.SIG Q24H [facility] Rx#:[id number] Oral 1240 / 1240 Output: Urine 1575 / 1575 750 / 750 450 / 450 Other: Date of Last Bowel Movement 09/02/18 Narrative: GENERAL: AAOx3, SKIN: Warm and dry. No rashes HEAD: Atruamtic, normocephalic. EYES: No scleral icterus. No injection or drainage. ENT: Moist mucous membranes, patent nares, no erythema of oropharynx. NECK: Supple, trachea midline. No JVD or lymphadenopathy. Normal thyroid. CARDIOVASCULAR: Tachycardia. No murmurs, gallops, or rubs. RESPIRATORY: Scattered congestive sounds and moderate wheezing throughout both lungs. Diminished right lung schneider. Poor air exchange. Not improving in 3 days.no accessory muscle use. GASTROINTESTINAL: Abdomen soft, non-tender, nondistended, normal active bowel sounds MUSCULOSKELETAL: No cyanosis, or edema. NEURO: CN II-XII grossly intact, no focal deficits, no slurring of speech Results - Labs CBC & Chem 7: 09/01/18 07:07 09/01/18 07:07 Laboratory Results - last 24 hr 09/04/18 09/04/18 05:16 14:16 PT 23.4 H INR 2.3 Puncture Site Right radial Patient Temperature 98.6 O2 Saturation 91 ABG pH 7.52 H* ABG pCO2 30 L ABG pO2 63 ABG HCO3 24 ABG O2 Content 17.0 ABG Base Excess 1.6 ABG Methemoglobin 1.6 Alejandro Test Present Hemoglobin 13.3 Carboxyhemoglobin 1.0 O2 Delivery Device Nasal cannula Liter Flow 5.00 Critical Value Yes - Imaging Impressions Abdomen Ultrasound 09/03/18 00:00 CONCLUSION: 1. Unremarkable ultrasound examination of the abdomen. 2. Specifically, no sonographic evidence for cholelithiasis or acute cholecystitis. Assessment and Plan - Plan COPD EXACERBATION IMPROVING PLAN O2 NEEDED BRONCHODILATOR THERAPY INCREASE ACTIVITY
[2018-09-04] MEDS: traZODone 100 MG Tablet PO SCH (20:06)
[2018-09-05 06:47] LABS: INR 2.8 Ratio; Prothrombin Time 28.4 sec (9.8-11.6)
[2018-09-05 07:05] LABS: Alanine Aminotransferase 48 U/L (12-78); Albumin 2.4 g/dL (3.4-5.0); Anion Gap 8 meq/L (5-15); Aspartate Aminotransferase 23 U/L (15-37); Blood Urea Nitrogen 26 mg/dL (7-18); Calcium 8.1 mg/dL (8.5-10.1); Carbon Dioxide 30.4 meq/L (21.0-32.0); Chloride 99 meq/L (98-107); Glomerular Filtration Rate 79 mL/min (>89); Glucose,Random 182 mg/dL (74-106); Potassium 3.5 meq/L (3.5-5.1); Sodium 137 meq/L (136-145)
[2018-09-05 07:07] LABS: Alkaline Phosphatase 82 U/L (45-117); Total Protein 6.2 g/dL (6.4-8.2)
[2018-09-05] MEDS: dilTIAZem CD 240 MG Capsule PO SCH (08:28)
[2018-09-05] MEDS: MethylPREDNISolone Sod Succinate Inj 125 MG/2 ML Vial IV.PUSH SCH ×3 (08:28→17:31)
[2018-09-05] MEDS: Budesonide-Formoterol 80/4.5 MCG 6.9 GM Inhaler INH SCH ×2 (08:29→21:06)
--- NOTE | 2018-09-05 09:33 | P.PN ---
Subjective Interval history: alert nad sob slowly improving Physical Exam Vital signs: Vital Signs 09/04/18 11:06 09/04/18 12:12 09/04/18 13:12 Temperature 98.7 F Pulse Rate 101 H 93 H 101 H Respiratory Rate 20 Blood Pressure 133/82 Pulse Oximetry 92 L 09/04/18 14:00 09/04/18 15:00 09/04/18 16:00 Temperature 98.5 F Pulse Rate 107 H 104 H 107 H Respiratory Rate 15 Blood Pressure 124/75 Pulse Oximetry 98 09/04/18 17:00 09/04/18 17:54 09/04/18 19:00 Temperature Pulse Rate 98 H 101 H 98 H Respiratory Rate Blood Pressure Pulse Oximetry 09/04/18 20:00 09/04/18 21:11 09/04/18 22:00 Temperature Pulse Rate 95 H 101 H Respiratory Rate 20 15 18 Blood Pressure 126/81 Pulse Oximetry 98 100 09/05/18 00:00 09/05/18 00:16 09/05/18 01:25 Temperature Pulse Rate 77 Respiratory Rate 22 Blood Pressure 108/66 Pulse Oximetry 94 L 93 L 98 09/05/18 04:00 09/05/18 08:00 09/05/18 08:30 Temperature 97.9 F Pulse Rate 80 77 79 Respiratory Rate 20 20 16 Blood Pressure 113/69 118/75 Pulse Oximetry 94 L 94 L 94 L Intake & Output 09/04/18 09/05/18 09/05/18 18:59 06:59 18:59 Intake Total 510 / 510 920 / 920 Output Total 1200 / 1200 380 / 380 Balance -690 / -690 540 / 540 Weight 78 kg Intake: IV 150 / 150 Levaquin 750 mg Premix Inj 150 150 / 150 ML @ 100 mls/hr IV.SIG Q24H [facility] Rx#:[id number] Oral 360 / 360 920 / 920 Output: Urine 1200 / 1200 380 / 380 Other: Date of Last Bowel Movement 09/05/18 09/05/18 # Bowel Movements 1 Narrative: GENERAL: AAOx3, SKIN: Warm and dry. No rashes HEAD: Atruamtic, normocephalic. EYES: No scleral icterus. No injection or drainage. ENT: Moist mucous membranes, patent nares, no erythema of oropharynx. NECK: Supple, trachea midline. No JVD or lymphadenopathy. Normal thyroid. CARDIOVASCULAR: Tachycardia. No murmurs, gallops, or rubs. RESPIRATORY: Scattered congestive sounds and moderate wheezing throughout both lungs. Diminished right lung schneider. Poor air exchange. Not improving in 3 days.no accessory muscle use. GASTROINTESTINAL: Abdomen soft, non-tender, nondistended, normal active bowel sounds MUSCULOSKELETAL: No cyanosis, or edema. NEURO: CN II-XII grossly intact, no focal deficits, no slurring of speech Results - Labs CBC & Chem 7: 09/01/18 07:07 09/05/18 05:54 Laboratory Results - last 24 hr 09/04/18 09/05/18 09/05/18 14:16 05:54 05:54 PT 28.4 H INR 2.8 Puncture Site Right radial Patient Temperature 98.6 O2 Saturation 91 ABG pH 7.52 H* ABG pCO2 30 L ABG pO2 63 ABG HCO3 24 ABG O2 Content 17.0 ABG Base Excess 1.6 ABG Methemoglobin 1.6 Alejandro Test Present Hemoglobin 13.3 Carboxyhemoglobin 1.0 O2 Delivery Device Nasal cannula Liter Flow 5.00 Critical Value Yes Sodium 137 Potassium 3.5 Chloride 99 Carbon Dioxide 30.4 Anion Gap 8 BUN 26 H Creatinine 0.98 Estimated GFR 79 L Random Glucose 182 H Calcium 8.1 L Total Bilirubin 0.3 AST 23 ALT 48 Alkaline Phosphatase 82 Total Protein 6.2 L D Albumin 2.4 L Assessment and Plan - Plan COPD EXACERBATION IMPROVING PLAN O2 NEEDED BRONCHODILATOR THERAPY INCREASE ACTIVITY check pft
--- NOTE | 2018-09-05 14:14 | P.PNIM ---
Subjective Interval history: Patient says that shortness of breath continues Physical Exam Vital signs: Vital Signs 09/04/18 15:00 09/04/18 16:00 09/04/18 17:00 Temperature 98.5 F Pulse Rate 104 H 107 H 98 H Respiratory Rate 15 Blood Pressure 124/75 Pulse Oximetry 98 09/04/18 17:54 09/04/18 19:00 09/04/18 20:00 Temperature Pulse Rate 101 H 98 H 95 H Respiratory Rate 20 Blood Pressure 126/81 Pulse Oximetry 98 09/04/18 21:11 09/04/18 22:00 09/05/18 00:00 Temperature Pulse Rate 101 H 77 Respiratory Rate 15 18 22 Blood Pressure 108/66 Pulse Oximetry 100 94 L 09/05/18 00:16 09/05/18 01:25 09/05/18 04:00 Temperature Pulse Rate 80 Respiratory Rate 20 Blood Pressure 113/69 Pulse Oximetry 93 L 98 94 L 09/05/18 08:00 09/05/18 08:30 09/05/18 12:00 Temperature 97.9 F 98.1 F Pulse Rate 77 79 83 Respiratory Rate 20 16 20 Blood Pressure 118/75 126/82 Pulse Oximetry 94 L 94 L 97 Intake & Output 09/04/18 09/05/18 09/05/18 18:59 06:59 18:59 Intake Total 510 / 510 920 / 920 Output Total 1200 / 1200 380 / 380 Balance -690 / -690 540 / 540 Weight 78 kg Intake: IV 150 / 150 Levaquin 750 mg Premix Inj 150 150 / 150 ML @ 100 mls/hr IV.SIG Q24H [facility] Rx#:[id number] Oral 360 / 360 920 / 920 Output: Urine 1200 / 1200 380 / 380 Other: Date of Last Bowel Movement 09/05/18 09/05/18 # Bowel Movements 1 Narrative: GENERAL: Patient sitting up in bed. Appears comfortable. Alert and oriented x3. SKIN: Warm and dry. HEAD: Normocephalic. EYES: No scleral icterus. No injection or drainage. NECK: Supple, trachea midline. No JVD. CARDIOVASCULAR: Regular rate and rhythm without murmurs, gallops, or rubs. RESPIRATORY: Breath sounds equal bilaterally. No accessory muscle use. GASTROINTESTINAL: Abdomen soft, non-tender, nondistended. MUSCULOSKELETAL: No cyanosis, or edema. BACK: Nontender without obvious deformity. No CVA tenderness. Results - Labs CBC & Chem 7: 09/01/18 07:07 09/05/18 05:54 Laboratory Results - last 24 hr 09/04/18 09/05/18 09/05/18 14:16 05:54 05:54 PT 28.4 H INR 2.8 Puncture Site Right radial Patient Temperature 98.6 O2 Saturation 91 ABG pH 7.52 H* ABG pCO2 30 L ABG pO2 63 ABG HCO3 24 ABG O2 Content 17.0 ABG Base Excess 1.6 ABG Methemoglobin 1.6 Alejandro Test Present Hemoglobin 13.3 Carboxyhemoglobin 1.0 O2 Delivery Device Nasal cannula Liter Flow 5.00 Critical Value Yes Sodium 137 Potassium 3.5 Chloride 99 Carbon Dioxide 30.4 Anion Gap 8 BUN 26 H Creatinine 0.98 Estimated GFR 79 L Random Glucose 182 H Calcium 8.1 L Total Bilirubin 0.3 AST 23 ALT 48 Alkaline Phosphatase 82 Total Protein 6.2 L D Albumin 2.4 L Assessment and Plan - Assessment (1) COPD exacerbation Code(s): J44.1 - Chronic obstructive pulmonary disease with (acute) exacerbation Status: Acute (2) Paroxysmal atrial fibrillation Code(s): I48.0 - Paroxysmal atrial fibrillation Status: Acute (3) Abnormal EKG Code(s): R94.31 - Abnormal electrocardiogram [ECG] [EKG] Status: Acute (4) Tobacco abuse counseling Code(s): Z71.6 - Tobacco abuse counseling Status: Acute - Plan COPD exacerbation Failure of 4 days of standard incremental increased therapy Large infiltrate present on CTA of chest Continue Levaquin Increase Solu-Medrol to 125 mg 3 times daily Add BiPAP for benefit of increased expiratory pressure system with clearance of progressive infiltrates BiPAP to also assist patient with increased work of breathing = Pulmonology following. Appreciate assistance. Continue BiPAP at night. Continue steroids and nebs. Pneumonia CT angiogram of the chest revealed pervasive infiltrates consistent with pneumonia = Continue IV antibiotics. Patient reports that he is an alcoholic. Suspicion for aspiration. Due to inadequate improvement, will add, and neomycin for anaerobic coverage. Abdominal fullness, h/o ascites and liver disease Ultrasound of abdomen showed no abnormalities Continue Bumex Atrial fibrillation Patient has poor follow-up and is not on any medication Tachycardia persists, likely related to increased work of breathing compensation for hypoxemia = INR therapeutic. 2.8. Continue warfarin. Appreciate pharmacy assistance. //Alcoholism. Cessation counseling provided. DVT prophylaxis Heparin Discharge Planning: Difficult discharge. Patient lives in his car. He is a self-pay. Currently on oxygen.
[2018-09-05] MEDS: traZODone 100 MG Tablet PO SCH (21:05)
[2018-09-05] MEDS: Ibuprofen 600 MG Tablet PO PRN (21:05)
[2018-09-06 05:32] LABS: Baso % (Auto) 0.1 % (0.0-2.0); Hematocrit 35.7 % (39.0-51.0); Hemoglobin 12.5 gm/dL (13.0-17.0); INR 5.1 Ratio; Lymph # (Auto) 0.9 th/mm3 (1.0-4.8); Lymph % (Auto) 7.1 % (9.0-44.0); Mean Corpuscular Hemoglobin 32.4 pg (27.0-34.0); Mean Corpuscular Volume 92.8 fL (80.0-100.0); Mean Platelet Volume 8.2 fL (7.0-11.0); Mono # (Auto) 0.7 th/mm3 (0.0-0.9); Neut # (Auto) 11.7 th/mm3 (1.8-7.7); Neut % (Auto) 87.8 % (16.0-70.0); Platelet Count 200 th/mm3 (150-450); Prothrombin Time 51.3 sec (9.8-11.6); Red Blood Count 3.85 mil/mm3 (4.50-5.90); Red Cell Distribution Width 13.1 % (11.6-17.2); White Blood Count 13.4 th/mm3 (4.0-11.0)
[2018-09-06 06:03] LABS: Albumin 2.3 g/dL (3.4-5.0); Calcium 7.5 mg/dL (8.5-10.1); Carbon Dioxide 28.8 meq/L (21.0-32.0); Phosphorus 2.3 mg/dL (2.5-4.9); Total Protein 5.6 g/dL (6.4-8.2)
[2018-09-06 06:08] LABS: Potassium 2.8 meq/L (3.5-5.1)
[2018-09-06 07:55] LABS: Lymphocytes 7 % (9-44); Monocytes 4 % (0-8); Myelocytes 2 % (0-0); Platelet Estimate Normal (Normal); Platelet Morphology Normal (Normal); RBC Morphology Normal (Normal)
[2018-09-06] MEDS: MethylPREDNISolone Sod Succinate Inj 125 MG/2 ML Vial IV.PUSH SCH ×3 (08:17→17:39)
[2018-09-06] MEDS: dilTIAZem CD 240 MG Capsule PO SCH (08:17)
[2018-09-06] MEDS: Budesonide-Formoterol 80/4.5 MCG 6.9 GM Inhaler INH SCH ×2 (08:18→22:00)
[2018-09-06] MEDS ORDERED: Potassium Chlor 20 mEq Premix 20 MEQ/100 ML PIGGYBACK IV.SIG SCH (11:00)
--- NOTE | 2018-09-06 11:04 | P.PNIM ---
Subjective Interval history: Patient says that shortness of breath is very slightly red today. Says he still is not ready to go home. Physical Exam Vital signs: Vital Signs 09/05/18 12:00 09/05/18 15:00 09/05/18 16:00 Temperature 98.1 F 97.6 F Pulse Rate 84 75 Respiratory Rate 20 18 Blood Pressure 126/82 110/72 Pulse Oximetry 97 97 99 09/05/18 20:00 09/05/18 20:50 09/05/18 20:52 Temperature Pulse Rate 80 94 H Respiratory Rate 20 18 Blood Pressure 120/79 Pulse Oximetry 93 L 94 L 09/05/18 21:17 09/05/18 22:44 09/06/18 00:00 Temperature Pulse Rate 90 Respiratory Rate 18 16 Blood Pressure 126/79 Pulse Oximetry 96 94 L 09/06/18 04:00 09/06/18 08:00 09/06/18 08:54 Temperature 98.1 F Pulse Rate 69 84 88 Respiratory Rate 18 18 15 Blood Pressure 115/70 133/88 Pulse Oximetry 98 96 96 Intake & Output 09/05/18 09/06/18 09/06/18 18:59 06:59 18:59 Intake Total 1576 / 1576 826 / 826 Output Total 925 / 925 1150 / 1150 Balance 651 / 651 -324 / -324 Weight 79.5 kg Intake: IV 256 / 256 106 / 106 Cleocin Inj 900 MG In NS Inj 106 / 106 106 / 106 100 ML @ 200 mls/hr IV.SIG Q8H [facility] Rx#:[id number] Levaquin 750 mg Premix Inj 150 150 / 150 ML @ 100 mls/hr IV.SIG Q24H [facility] Rx#:[id number] Oral 1320 / 1320 720 / 720 Tube Feeding 0 / 0 Tube Irrigant 0 / 0 Output: Urine 925 / 925 1150 / 1150 Other: # Voids 3 Date of Last Bowel Movement 09/05/18 09/05/18 09/05/18 # Bowel Movements 3 3 Narrative: GENERAL: Patient sitting up in bed. Appears comfortable. Alert and oriented x3. On 6 L nasal cannula SKIN: Warm and dry. HEAD: Normocephalic. EYES: No scleral icterus. No injection or drainage. NECK: Supple, trachea midline. No JVD. CARDIOVASCULAR: Regular rate and rhythm without murmurs, gallops, or rubs. RESPIRATORY: Breath sounds equal bilaterally. No accessory muscle use. GASTROINTESTINAL: Abdomen soft, non-tender, nondistended. MUSCULOSKELETAL: No cyanosis, or edema. BACK: Nontender without obvious deformity. No CVA tenderness. Results - Labs CBC & Chem 7: 09/06/18 03:59 09/06/18 03:59 Laboratory Results - last 24 hr 09/06/18 09/06/18 09/06/18 03:59 03:59 03:59 WBC 13.4 H RBC 3.85 L Hgb 12.5 L Hct 35.7 L MCV 92.8 MCH 32.4 MCHC 35.0 RDW 13.1 Plt Count 200 MPV 8.2 Prelim Diff (Auto) Slide review pending Neut % (Auto) 87.8 H Lymph % (Auto) 7.1 L [place] % (Auto) 5.0 Eos % (Auto) 0.0 Baso % (Auto) 0.1 Neut # (Auto) 11.7 H Lymph # (Auto) 0.9 L [place] # (Auto) 0.7 Eos # (Auto) 0.0 Baso # (Auto) 0.0 WBC Differential Manual diff final Seg Neuts % (Manual) 86 H Band Neuts % (Manual) 1 Lymphocytes % (Manual) 7 L Monocytes % (Manual) 4 Myelocytes % (Man) 2 H Abs Neuts (Manual) 11.9 H Differential Comment . Platelet Estimate Normal Platelet Morphology Normal RBC Morphology Normal PT 51.3 H D INR 5.1 Sodium 136 Potassium 2.8 L* Chloride 98 Carbon Dioxide 28.8 Anion Gap 9 BUN 29 H Creatinine 1.14 Estimated GFR 66 L Random Glucose 284 H D Calcium 7.5 L Phosphorus 2.3 L Magnesium 2.0 Total Bilirubin 0.3 Direct Bilirubin 0.1 Indirect Bilirubin 0.2 AST 76 H ALT 132 H Alkaline Phosphatase 79 Total Protein 5.6 L D Albumin 2.3 L Assessment and Plan - Assessment (1) COPD exacerbation Code(s): J44.1 - Chronic obstructive pulmonary disease with (acute) exacerbation Status: Acute (2) Paroxysmal atrial fibrillation Code(s): I48.0 - Paroxysmal atrial fibrillation Status: Acute (3) Abnormal EKG Code(s): R94.31 - Abnormal electrocardiogram [ECG] [EKG] Status: Acute (4) Tobacco abuse counseling Code(s): Z71.6 - Tobacco abuse counseling Status: Acute - Plan //COPD exacerbation Failure of 4 days of standard incremental increased therapy Large infiltrate present on CTA of chest Continue Levaquin Increase Solu-Medrol to 125 mg 3 times daily Add BiPAP for benefit of increased expiratory pressure system with clearance of progressive infiltrates BiPAP to also assist patient with increased work of breathing = Pulmonology following. Appreciate assistance. Continue BiPAP at night. Continue steroids and nebs. = 09/06. Slow improvement. Continue steroids, nebs, antibiotics. Pulmonology assistance appreciated. //Suspected aspiration pneumonia on admission //Suspected sepsis on admission with leukocytosis, tachycardia, aspiration pneumonia CT angiogram of the chest revealed pervasive infiltrates consistent with pneumonia = Continue IV antibiotics. Patient reports that he is an alcoholic. Suspicion for aspiration. Due to inadequate improvement, will add, and clindamycin for anaerobic coverage. //Abdominal fullness, h/o ascites and liver disease Ultrasound of abdomen showed no abnormalities Continue Bumex //Atrial fibrillation Patient has poor follow-up and is not on any medication Tachycardia persists, likely related to increased work of breathing compensation for hypoxemia = INR supratherapeutic 5.1. Holding warfarin today. Appreciate pharmacy assistance. //Alcoholism. Cessation counseling provided. //Hypokalemia. Potassium 2.8. Replace and monitor. DVT prophylaxis Heparin Discharge Planning: Difficult discharge. Patient lives in his car. He is a self-pay. Currently on oxygen.
[2018-09-06] MEDS ORDERED: Simethicone 125 MG Chew Tablet PO PRN (18:44)
[2018-09-06] MEDS: traZODone 100 MG Tablet PO SCH (22:00)
[2018-09-07 04:57] LABS: Baso % (Auto) 0.1 % (0.0-2.0); Hematocrit 36.6 % (39.0-51.0); Hemoglobin 12.9 gm/dL (13.0-17.0); Lymph # (Auto) 0.9 th/mm3 (1.0-4.8); Lymph % (Auto) 6.9 % (9.0-44.0); Mean Corpuscular HGB Conc 35.2 % (32.0-36.0); Mean Corpuscular Hemoglobin 32.6 pg (27.0-34.0); Mean Corpuscular Volume 92.5 fL (80.0-100.0); Mean Platelet Volume 7.8 fL (7.0-11.0); Mono # (Auto) 0.7 th/mm3 (0.0-0.9); Mono % (Auto) 5.8 % (0.0-8.0); Neut # (Auto) 11.1 th/mm3 (1.8-7.7); Neut % (Auto) 87.2 % (16.0-70.0); Platelet Count 211 th/mm3 (150-450); Red Blood Count 3.96 mil/mm3 (4.50-5.90); White Blood Count 12.7 th/mm3 (4.0-11.0)
[2018-09-07 05:02] LABS: INR 3.7 Ratio; Prothrombin Time 37.5 sec (9.8-11.6)
[2018-09-07 05:27] LABS: Albumin 2.4 g/dL (3.4-5.0); Calcium 7.3 mg/dL (8.5-10.1); Carbon Dioxide 29.2 meq/L (21.0-32.0); Magnesium 2.1 mg/dL (1.5-2.5); Phosphorus 2.9 mg/dL (2.5-4.9); Potassium 3.3 meq/L (3.5-5.1); Total Protein 5.5 g/dL (6.4-8.2)
[2018-09-07 06:21] LABS: Lymphocytes 6 % (9-44); Metamyelocytes 1 % (0-1); Monocytes 3 % (0-8); Myelocytes 2 % (0-0); Platelet Estimate Normal (Normal); Platelet Morphology Normal (Normal)
[2018-09-07] MEDS: MethylPREDNISolone Sod Succinate Inj 125 MG/2 ML Vial IV.PUSH SCH ×3 (08:29→17:15)
[2018-09-07] MEDS: dilTIAZem CD 240 MG Capsule PO SCH (08:30)
[2018-09-07] MEDS: Budesonide-Formoterol 80/4.5 MCG 6.9 GM Inhaler INH SCH ×2 (08:31→20:08)
[2018-09-07] MEDS ORDERED: Calcium Gluconate Inj 1 GM in Dextrose 5% in Water Inj 100 ML IV.SIG ONE ×2 (09:00)
--- NOTE | 2018-09-07 09:17 | P.PN ---
Subjective Interval history: Follow-up visit for COPD exacerbation, suspected aspiration pneumonia and abdominal fullness. Patient seen and examined sitting up in bed eating breakfast morning in no acute distress. Reports his breathing is "so-so". Intermittent productive cough, denies any fevers, chills, nausea, vomiting or diarrhea. Moving his bowels without any blood or black stools. Physical Exam Vital signs: Vital Signs 09/06/18 12:00 09/06/18 16:00 09/06/18 19:54 Temperature 97.8 F 97.7 F 98.6 F Pulse Rate 86 109 H 103 H Respiratory Rate 18 20 18 Blood Pressure 126/80 134/86 123/70 Pulse Oximetry 100 98 94 L 09/06/18 20:11 09/06/18 23:08 09/07/18 00:02 Temperature 97.9 F Pulse Rate 110 H 87 90 Respiratory Rate 18 Blood Pressure 119/66 Pulse Oximetry 96 09/07/18 03:20 09/07/18 04:03 09/07/18 08:00 Temperature 97.7 F 97.9 F Pulse Rate 83 89 81 Respiratory Rate 19 18 Blood Pressure 124/82 133/79 Pulse Oximetry 96 95 Intake & Output 09/06/18 09/07/18 09/07/18 18:59 06:59 18:59 Intake Total 1562 / 1562 586 / 586 Output Total 1150 / 1150 Balance 412 / 412 586 / 586 Weight 79.5 kg Intake: IV 362 / 362 106 / 106 Cleocin Inj 900 MG In NS Inj 212 / 212 106 / 106 100 ML @ 200 mls/hr IV.SIG Q8H JOSE Rx#:[id number] Levaquin 750 mg Premix Inj 150 150 / 150 ML @ 100 mls/hr IV.SIG Q24H JOSE Rx#:[id number] Oral 1200 / 1200 480 / 480 Output: Urine 1150 / 1150 Other: # Voids 2 2 Date of Last Bowel Movement 09/06/18 09/06/18 # Bowel Movements 1 0 Narrative: GENERAL: Well-nourished, well-developed male sitting up in bed in no acute distress. SKIN: Warm and dry. HEAD: Atraumatic. Normocephalic. EYES: Pupils equal/round. No scleral icterus. No injection or drainage. ENT: No nasal bleeding or discharge. Mucous membranes pink and moist. NECK: Trachea midline. CARDIOVASCULAR: Regular rate and rhythm. RESPIRATORY: No accessory muscle use. Diminished throughout without rhonchi or wheezing. GASTROINTESTINAL: Abdomen soft, non-tender, nondistended. + Bowel sounds MUSCULOSKELETAL: Extremities without clubbing, cyanosis, or edema. No obvious deformities. NEUROLOGICAL: Awake, alert, oriented x3. No obvious cranial nerve deficits. Motor grossly within normal limits. Normal speech. PSYCHIATRIC: Appropriate mood and affect; insight and judgment normal. Results - Labs CBC & Chem 7: 09/07/18 03:35 09/07/18 03:35 Laboratory Results - last 24 hr 09/07/18 09/07/18 09/07/18 03:35 03:35 03:35 WBC 12.7 H RBC 3.96 L Hgb 12.9 L Hct 36.6 L MCV 92.5 MCH 32.6 MCHC 35.2 RDW 13.0 Plt Count 211 MPV 7.8 Prelim Diff (Auto) Slide review pending Neut % (Auto) 87.2 H Lymph % (Auto) 6.9 L [place] % (Auto) 5.8 Eos % (Auto) 0.0 Baso % (Auto) 0.1 Neut # (Auto) 11.1 H Lymph # (Auto) 0.9 L [place] # (Auto) 0.7 Eos # (Auto) 0.0 Baso # (Auto) 0.0 WBC Differential Manual diff final Seg Neuts % (Manual) 86 H Band Neuts % (Manual) 2 Lymphocytes % (Manual) 6 L Monocytes % (Manual) 3 Metamyelocytes % (Man) 1 Myelocytes % (Man) 2 H Abs Neuts (Manual) 11.6 H Differential Comment . Platelet Estimate Normal Platelet Morphology Normal PT 37.5 H D INR 3.7 Sodium 138 Potassium 3.3 L Chloride 98 Carbon Dioxide 29.2 Anion Gap 11 BUN 27 H Creatinine 1.05 Estimated GFR 73 L Random Glucose 278 H Calcium 7.3 L* Phosphorus 2.9 Magnesium 2.1 Total Bilirubin 0.3 Direct Bilirubin 0.1 Indirect Bilirubin 0.2 AST 98 H ALT 202 H Alkaline Phosphatase 84 Total Protein 5.5 L Albumin 2.4 L Assessment and Plan - Assessment (1) COPD exacerbation Code(s): J44.1 - Chronic obstructive pulmonary disease with (acute) exacerbation Status: Acute (2) Paroxysmal atrial fibrillation Code(s): I48.0 - Paroxysmal atrial fibrillation Status: Acute (3) Abnormal EKG Code(s): R94.31 - Abnormal electrocardiogram [ECG] [EKG] Status: Acute (4) Tobacco abuse counseling Code(s): Z71.6 - Tobacco abuse counseling Status: Acute - Plan COPD exacerbation Large infiltrate present on CT of chest -Continue antibiotics with Levaquin -Continue Solu-Medrol 125 mg 3 times daily, continue scheduled breathing treatments. -Off of BiPAP tolerating nasal cannula on 3 L -Pulmonary following, appreciate assistance. Suspect aspiration pneumonia Suspected sepsis on admission with leukocytosis, tachycardia -CT angiogram of the chest revealed pervasive infiltrates consistent with pneumonia -Continue p.o. Levaquin, suspicion for aspiration, continue clindamycin for anaerobic coverage. Abdominal fullness, history of ascites and liver disease -Ultrasound of abdomen showed no abnormalities Continue Bumex Atrial fibrillation, rate controlled -Poor compliance as outpatient on medications, subtherapeutic INR on admission 1.2 -Supratherapeutic INR yesterday at 5.1, hold Coumadin INR this morning 3.7 -Pharmacy assisting with dosing, continue to hold Coumadin and monitor INRs. Hypokalemia, acute -Hypocalcemia, acute -Replace orally, recheck potassium level tomorrow -I will see him level today 7.3, has been declining. Replace IV and recheck tomorrow. 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 Patient is homeless and lives in his car and is requiring oxygen, most likely will need oxygen on discharge depending on walk test.
[2018-09-07 09:59] LABS: Hemoglobin A1c 6.3 % (4.3-6.0)
--- NOTE | 2018-09-07 12:24 | P.PN ---
Subjective Interval history: LESS SOB UP IN CHAIR Physical Exam Vital signs: Vital Signs 09/06/18 16:00 09/06/18 19:54 09/06/18 20:11 Temperature 97.7 F 98.6 F Pulse Rate 109 H 103 H 110 H Respiratory Rate 20 18 Blood Pressure 134/86 123/70 Pulse Oximetry 98 94 L 09/06/18 23:08 09/07/18 00:02 09/07/18 03:20 Temperature 97.9 F 97.7 F Pulse Rate 87 90 83 Respiratory Rate 18 19 Blood Pressure 119/66 124/82 Pulse Oximetry 96 96 09/07/18 04:03 09/07/18 08:00 09/07/18 12:00 Temperature 97.9 F 97.8 F Pulse Rate 89 86 89 Respiratory Rate 18 20 Blood Pressure 133/79 121/71 Pulse Oximetry 95 93 L Intake & Output 09/06/18 09/07/18 09/07/18 18:59 06:59 18:59 Intake Total 1562 / 1562 586 / 586 106 / 106 Output Total 1150 / 1150 Balance 412 / 412 586 / 586 106 / 106 Weight 79.5 kg Intake: IV 362 / 362 106 / 106 106 / 106 Cleocin Inj 900 MG In NS Inj 212 / 212 106 / 106 106 / 106 100 ML @ 200 mls/hr IV.SIG Q8H JOSE Rx#:[id number] Levaquin 750 mg Premix Inj 150 150 / 150 ML @ 100 mls/hr IV.SIG Q24H JOSE Rx#:[id number] Oral 1200 / 1200 480 / 480 Output: Urine 1150 / 1150 Other: # Voids 2 2 Date of Last Bowel Movement 09/06/18 09/06/18 # Bowel Movements 1 0 Narrative: GENERAL: Patient sitting up in bed. Appears comfortable. Alert and oriented x3. On 6 L nasal cannula SKIN: Warm and dry. HEAD: Normocephalic. EYES: No scleral icterus. No injection or drainage. NECK: Supple, trachea midline. No JVD. CARDIOVASCULAR: Regular rate and rhythm without murmurs, gallops, or rubs. RESPIRATORY: Breath sounds equal bilaterally. No accessory muscle use. GASTROINTESTINAL: Abdomen soft, non-tender, nondistended. MUSCULOSKELETAL: No cyanosis, or edema. BACK: Nontender without obvious deformity. No CVA tenderness. Results - Labs CBC & Chem 7: 09/07/18 03:35 09/07/18 03:35 Laboratory Results - last 24 hr 09/06/18 09/07/18 09/07/18 03:59 03:35 03:35 WBC 12.7 H RBC 3.96 L Hgb 12.9 L Hct 36.6 L MCV 92.5 MCH 32.6 MCHC 35.2 RDW 13.0 Plt Count 211 MPV 7.8 Prelim Diff (Auto) Slide review pending Neut % (Auto) 87.2 H Lymph % (Auto) 6.9 L [place] % (Auto) 5.8 Eos % (Auto) 0.0 Baso % (Auto) 0.1 Neut # (Auto) 11.1 H Lymph # (Auto) 0.9 L [place] # (Auto) 0.7 Eos # (Auto) 0.0 Baso # (Auto) 0.0 WBC Differential Manual diff final Seg Neuts % (Manual) 86 H Band Neuts % (Manual) 2 Lymphocytes % (Manual) 6 L Monocytes % (Manual) 3 Metamyelocytes % (Man) 1 Myelocytes % (Man) 2 H Abs Neuts (Manual) 11.6 H Differential Comment . Platelet Estimate Normal Platelet Morphology Normal PT 37.5 H D INR 3.7 Sodium Potassium Chloride Carbon Dioxide Anion Gap BUN Creatinine Estimated GFR Random Glucose Hemoglobin A1c 6.3 H Calcium Phosphorus Magnesium Total Bilirubin Direct Bilirubin Indirect Bilirubin AST ALT Alkaline Phosphatase Total Protein Albumin 09/07/18 03:35 WBC RBC Hgb Hct MCV MCH MCHC RDW Plt Count MPV Prelim Diff (Auto) Neut % (Auto) Lymph % (Auto) [place] % (Auto) Eos % (Auto) Baso % (Auto) Neut # (Auto) Lymph # (Auto) [place] # (Auto) Eos # (Auto) Baso # (Auto) WBC Differential Seg Neuts % (Manual) Band Neuts % (Manual) Lymphocytes % (Manual) Monocytes % (Manual) Metamyelocytes % (Man) Myelocytes % (Man) Abs Neuts (Manual) Differential Comment Platelet Estimate Platelet Morphology PT INR Sodium 138 Potassium 3.3 L Chloride 98 Carbon Dioxide 29.2 Anion Gap 11 BUN 27 H Creatinine 1.05 Estimated GFR 73 L Random Glucose 278 H Hemoglobin A1c Calcium 7.3 L* Phosphorus 2.9 Magnesium 2.1 Total Bilirubin 0.3 Direct Bilirubin 0.1 Indirect Bilirubin 0.2 AST 98 H ALT 202 H Alkaline Phosphatase 84 Total Protein 5.5 L Albumin 2.4 L Assessment and Plan - Plan COPD EXACERBATION IMPROVING PLAN O2 NEEDED BRONCHODILATOR THERAPY INCREASE ACTIVITY
[2018-09-07] MEDS: traZODone 100 MG Tablet PO SCH (20:08)
[2018-09-08] MEDS: dilTIAZem CD 240 MG Capsule PO SCH (08:08)
[2018-09-08] MEDS: MethylPREDNISolone Sod Succinate Inj 125 MG/2 ML Vial IV.PUSH SCH ×3 (08:08→17:35)
[2018-09-08] MEDS: Budesonide-Formoterol 80/4.5 MCG 6.9 GM Inhaler INH SCH ×2 (08:09→21:41)
[2018-09-08] MEDS: Ibuprofen 600 MG Tablet PO PRN ×2 (08:12→17:42)
[2018-09-08 08:41] LABS: INR 1.6 Ratio; Prothrombin Time 16.6 sec (9.8-11.6)
[2018-09-08 08:59] LABS: Calcium 7.7 mg/dL (8.5-10.1); Carbon Dioxide 30.8 meq/L (21.0-32.0); Potassium 3.3 meq/L (3.5-5.1)
--- NOTE | 2018-09-08 09:25 | P.PN ---
Subjective Interval history: Patient seen and examined sitting up in bed in no acute distress. Reports that his breathing is about the same, episode of hemoptysis overnight, none this morning. Patient also complains of abdominal tightness and epigastric and upper right quadrant pain. Reports this pain is stabbing consistency 5/10, coughing will make it worse. Denies any fevers, chills, nausea, vomiting or diarrhea. Moving his bowels regularly without any black or bloody stools reported, denies any dysuria or hematuria. Patient also requesting something for sleep, states that he is only been able to sleep around 2 hours every night due to insomnia. Physical Exam Vital signs: Vital Signs 09/07/18 12:00 09/07/18 12:02 09/07/18 16:00 Temperature 97.8 F 97.4 F L Pulse Rate 89 87 86 Respiratory Rate 20 18 Blood Pressure 121/71 128/69 Pulse Oximetry 93 L 95 09/07/18 20:00 09/07/18 20:04 09/07/18 20:05 Temperature 97.9 F Pulse Rate 85 79 Respiratory Rate 18 Blood Pressure 116/66 Pulse Oximetry 95 95 09/07/18 20:20 09/07/18 23:55 09/08/18 00:00 Temperature 97.4 F L Pulse Rate 88 70 72 Respiratory Rate 16 18 Blood Pressure 120/67 Pulse Oximetry 96 96 09/08/18 04:00 09/08/18 04:20 09/08/18 08:00 Temperature 97.4 F L 97.7 F Pulse Rate 82 81 73 Respiratory Rate 19 16 Blood Pressure 129/74 133/81 Pulse Oximetry 95 94 L Intake & Output 09/07/18 09/08/18 09/08/18 18:59 06:59 18:59 Intake Total 1882 / 1882 1186 / 1186 Balance 1882 / 1882 1186 / 1186 Weight 79.5 kg Intake: IV 362 / 362 106 / 106 Cleocin Inj 900 MG In NS Inj 212 / 212 106 / 106 100 ML @ 200 mls/hr IV.SIG Q8H JOSE Rx#:[id number] Levaquin 750 mg Premix Inj 150 150 / 150 ML @ 100 mls/hr IV.SIG Q24H JOSE Rx#:[id number] Oral 1520 / 1520 1080 / 1080 Other: # Voids 1 3 Date of Last Bowel Movement 09/06/18 # Bowel Movements 2 0 Narrative: GENERAL: Well-nourished, well-developed male sitting up in bed in no acute distress. SKIN: Warm and dry. HEAD: Atraumatic. Normocephalic. EYES: Pupils equal/round. No scleral icterus. No injection or drainage. ENT: No nasal bleeding or discharge. Mucous membranes pink and moist. NECK: Trachea midline. CARDIOVASCULAR: Regular rate and rhythm. RESPIRATORY: No accessory muscle use. Diminished throughout without rhonchi or wheezing. GASTROINTESTINAL: Abdomen soft, non-tender, nondistended. + Bowel sounds MUSCULOSKELETAL: Extremities without clubbing, cyanosis, or edema. No obvious deformities. NEUROLOGICAL: Awake, alert, oriented x3. No obvious cranial nerve deficits. Motor grossly within normal limits. Normal speech. PSYCHIATRIC: Appropriate mood and affect; insight and judgment normal. Results - Labs CBC & Chem 7: 09/07/18 03:35 09/08/18 07:23 Laboratory Results - last 24 hr 09/06/18 09/08/18 09/08/18 03:59 07:23 07:23 PT 16.6 H D INR 1.6 Sodium 139 Potassium 3.3 L Chloride 98 Carbon Dioxide 30.8 Anion Gap 10 BUN 29 H Creatinine 1.01 Estimated GFR 76 L Random Glucose 236 H Hemoglobin A1c 6.3 H Calcium 7.7 L Assessment and Plan - Assessment (1) COPD exacerbation Code(s): J44.1 - Chronic obstructive pulmonary disease with (acute) exacerbation Status: Acute (2) Paroxysmal atrial fibrillation Code(s): I48.0 - Paroxysmal atrial fibrillation Status: Acute (3) Abnormal EKG Code(s): R94.31 - Abnormal electrocardiogram [ECG] [EKG] Status: Acute (4) Tobacco abuse counseling Code(s): Z71.6 - Tobacco abuse counseling Status: Acute - Plan COPD exacerbation Large infiltrate present on CT of chest -Continue antibiotics -Continue Solu-Medrol 125 mg 3 times daily, continue scheduled breathing treatments. -Off of BiPAP tolerating nasal cannula on 3 L -Pulmonary following, appreciate assistance. Will add theophylline 100 mg daily due to liver dysfunction, check levels in 3 days. Suspect aspiration pneumonia Suspected sepsis on admission with leukocytosis, tachycardia -CT angiogram of the chest revealed pervasive infiltrates consistent with pneumonia -Chest x-ray today with increasing densities bilaterally greater on left. Respiratory status stable on 4 L nasal cannula. -Continue Levaquin and clindamycin. Hemoptysis, acute -Repeat chest x-ray this morning with noted increased densities bilaterally greater on the left. Stable suspected scarring in upper lungs and in the right midlung/minor fissure region. -Check H&H tomorrow in the a.m., hold Coumadin, n.p.o. after midnight for planned bronchoscopy tomorrow. Abdominal fullness, history of ascites and liver disease -Ultrasound of abdomen showed no abnormalities - KUB today with prominent stool in proximal colon. - CMP tomorrow, if LFTs trending upno improvement in ascites consider GI consult. Continue Bumex Atrial fibrillation, rate controlled -Poor compliance as outpatient on medications, subtherapeutic INR on admission 1.2 -INR 1.6, Coumadin on hold secondary to planned bronchoscopy tomorrow. -Pharmacy assisting with dosing, appreciate assistance, continue monitoring INRs. Hypokalemia, acute -Hypocalcemia, acute -Calcium level improved. Potassium level 3.3, schedule oral potassium supplementation and recheck labs in the a.m. Insomnia, acute -Trial of low-dose Ambien as needed. 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 Jansen Discharge Planning: Likely will be difficult placement. Patient is homeless and lives in his car and is requiring oxygen, most likely will need oxygen on discharge depending on walk test.
--- NOTE | 2018-09-08 11:21 | XR ---
EXAM DATE: 09/08/2018 11:17 AM EST AGE/SEX: 58 years / Male INDICATIONS: Chest pain and shortness of breath. CLINICAL DATA: This is the patient's subsequent encounter. Patient reports that signs and symptoms h ave been present for 1 day and indicates a pain score of 7/10. MEDICAL/SURGICAL HISTORY: Chronic obstructive pulmonary disease. Carcinoma, lung. AFIB. Lobec boyd. COMPARISON: [facility] [place], CHEST 1V SINGLE AP, 08/31/2018. . FINDINGS: The heart size is normal. There is increased density seen at the bases bilaterally being more promine nt on the left. There is also some faint linear density seen in the upper lungs bilaterally being mor e prominent on the right. There some minimal linear density seen in the right lateral midlung adjacen t to the minor fissure. The costophrenic angles are clear. CONCLUSION: Increased density at the bases likely related to a combination of interstitial disease and atelectasi s. This appears new. Stable suspected scarring in the upper lungs and in the right midlung/minor fissure region. Electronically signed by: Danielito Kim MD Board Certified Radiologist 09/08/2018 11:20 AM EST
--- NOTE | 2018-09-08 11:22 | XR ---
EXAM DATE: 09/08/2018 11:19 AM EST AGE/SEX: 58 years / Male INDICATIONS: Abdominal pain and distention. CLINICAL DATA: This is the patient's initial encounter. Patient reports that signs and symptoms have been present for 1 day and indicates a pain score of 7/10. MEDICAL/SURGICAL HISTORY: Carcinoma, lung. Chronic obstructive pulmonary disease. AFIB. Lobec boyd. COMPARISON: [facility] – [place], ABDOMEN 2V FLAT & UPRIGHT, 06/28/2018. . FINDINGS: There is prominent amount stool seen in the ascending and transverse portions of the colon. Signific antly dilated small bowel is not seen. The rectum is not dilated. Free air is not clearly seen. CONCLUSION: Prominent stool in the proximal colon. Electronically signed by: Danielito Kim MD Board Certified Radiologist 09/08/2018 11:21 AM EST
--- NOTE | 2018-09-08 15:51 | P.PN ---
Subjective Interval history: alert abdomen distended hemoptysis , minor last night Physical Exam Vital signs: Vital Signs 09/07/18 16:00 09/07/18 20:00 09/07/18 20:04 Temperature 97.4 F L Pulse Rate 86 85 Respiratory Rate 18 Blood Pressure 128/69 Pulse Oximetry 95 95 09/07/18 20:05 09/07/18 20:20 09/07/18 23:55 Temperature 97.9 F 97.4 F L Pulse Rate 79 88 70 Respiratory Rate 18 16 18 Blood Pressure 116/66 120/67 Pulse Oximetry 95 96 96 09/08/18 00:00 09/08/18 04:00 09/08/18 04:20 Temperature 97.4 F L Pulse Rate 72 82 81 Respiratory Rate 19 Blood Pressure 129/74 Pulse Oximetry 95 09/08/18 08:00 09/08/18 12:00 09/08/18 12:04 Temperature 97.7 F 97.7 F Pulse Rate 74 79 78 Respiratory Rate 16 18 Blood Pressure 133/81 117/71 Pulse Oximetry 95 97 Intake & Output 09/07/18 09/08/18 09/08/18 18:59 06:59 18:59 Intake Total 1882 / 1882 1186 / 1186 106 / 106 Balance 1882 / 1882 1186 / 1186 106 / 106 Weight 79.5 kg Intake: IV 362 / 362 106 / 106 106 / 106 Cleocin Inj 900 MG In NS Inj 212 / 212 106 / 106 106 / 106 100 ML @ 200 mls/hr IV.SIG Q8H JOSE Rx#:[id number] Levaquin 750 mg Premix Inj 150 150 / 150 ML @ 100 mls/hr IV.SIG Q24H JOSE Rx#:[id number] Oral 1520 / 1520 1080 / 1080 Other: # Voids 1 3 Date of Last Bowel Movement 09/06/18 09/06/18 # Bowel Movements 2 0 Narrative: GENERAL: Well-nourished, well-developed male sitting up in bed in no acute distress. SKIN: Warm and dry. HEAD: Atraumatic. Normocephalic. EYES: Pupils equal/round. No scleral icterus. No injection or drainage. ENT: No nasal bleeding or discharge. Mucous membranes pink and moist. NECK: Trachea midline. CARDIOVASCULAR: Regular rate and rhythm. RESPIRATORY: No accessory muscle use. Diminished throughout without rhonchi or wheezing. GASTROINTESTINAL: Abdomen soft, non-tender, nondistended. + Bowel sounds MUSCULOSKELETAL: Extremities without clubbing, cyanosis, or edema. No obvious deformities. NEUROLOGICAL: Awake, alert, oriented x3. No obvious cranial nerve deficits. Motor grossly within normal limits. Normal speech. PSYCHIATRIC: Appropriate mood and affect; insight and judgment normal. Results - Labs CBC & Chem 7: 09/07/18 03:35 09/08/18 07:23 Laboratory Results - last 24 hr 09/08/18 09/08/18 07:23 07:23 PT 16.6 H D INR 1.6 Sodium 139 Potassium 3.3 L Chloride 98 Carbon Dioxide 30.8 Anion Gap 10 BUN 29 H Creatinine 1.01 Estimated GFR 76 L Random Glucose 236 H Calcium 7.7 L - Imaging Impressions Abdomen X-Ray 09/08/18 00:00 CONCLUSION: Prominent stool in the proximal colon. Chest X-Ray 09/08/18 00:00 CONCLUSION: Increased density at the bases likely related to a combination of interstitial disease and atelectasis. This appears new. Stable suspected scarring in the upper lungs and in the right midlung/minor fissure region. Assessment and Plan - Plan COPD EXACERBATION IMPROVING minor hemoptysis PLAN O2 NEEDED BRONCHODILATOR THERAPY INCREASE ACTIVITY low dose theophylline bronchoscopy AM
[2018-09-08 16:53] LABS: Baso % (Auto) 0.2 % (0.0-2.0); Hematocrit 35.2 % (39.0-51.0); Hemoglobin 12.9 gm/dL (13.0-17.0); Lymph # (Auto) 1.2 th/mm3 (1.0-4.8); Lymph % (Auto) 5.7 % (9.0-44.0); Mean Corpuscular HGB Conc 36.5 % (32.0-36.0); Mean Corpuscular Hemoglobin 33.5 pg (27.0-34.0); Mean Corpuscular Volume 91.6 fL (80.0-100.0); Mean Platelet Volume 7.6 fL (7.0-11.0); Mono # (Auto) 0.8 th/mm3 (0.0-0.9); Neut # (Auto) 18.1 th/mm3 (1.8-7.7); Neut % (Auto) 90.1 % (16.0-70.0); Platelet Count 222 th/mm3 (150-450); Red Blood Count 3.85 mil/mm3 (4.50-5.90); Red Cell Distribution Width 13.2 % (11.6-17.2); White Blood Count 20.1 th/mm3 (4.0-11.0)
[2018-09-08 17:01] LABS: Activated Partial Thrombo Time 25.1 sec (23.4-31.7); INR 1.5 Ratio; Prothrombin Time 15.4 sec (9.8-11.6)
[2018-09-08] MEDS: traZODone 100 MG Tablet PO SCH (21:36)
[2018-09-08] MEDS: Zolpidem Tartrate 5 MG Tablet PO PRN (21:38)
[2018-09-08] MEDS: Senna/Docusate Sodium 8.6/50 MG Tablet PO SCH (21:38)
[2018-09-09 05:21] LABS: Baso % (Auto) 0.1 % (0.0-2.0); Hematocrit 35.9 % (39.0-51.0); Hemoglobin 12.6 gm/dL (13.0-17.0); Lymph # (Auto) 1.1 th/mm3 (1.0-4.8); Lymph % (Auto) 5.8 % (9.0-44.0); Mean Corpuscular Volume 91.4 fL (80.0-100.0); Mean Platelet Volume 7.1 fL (7.0-11.0); Mono # (Auto) 0.8 th/mm3 (0.0-0.9); Mono % (Auto) 4.3 % (0.0-8.0); Neut # (Auto) 17.5 th/mm3 (1.8-7.7); Neut % (Auto) 89.8 % (16.0-70.0); Platelet Count 220 th/mm3 (150-450); Red Blood Count 3.93 mil/mm3 (4.50-5.90); Red Cell Distribution Width 13.3 % (11.6-17.2); White Blood Count 19.5 th/mm3 (4.0-11.0)
[2018-09-09 05:39] LABS: INR 1.3 Ratio; Prothrombin Time 13.1 sec (9.8-11.6)
[2018-09-09 05:51] LABS: Albumin 2.4 g/dL (3.4-5.0); Calcium 7.4 mg/dL (8.5-10.1); Carbon Dioxide 31.5 meq/L (21.0-32.0); Magnesium 2.5 mg/dL (1.5-2.5); Potassium 3.5 meq/L (3.5-5.1); Total Protein 5.1 g/dL (6.4-8.2)
[2018-09-09] MEDS ORDERED: Chlorhexidine Gluconate 2% 1 Pack (2 Cloths) TOPICAL ONE (08:30)
[2018-09-09] MEDS ORDERED: Sodium Chlor 0.9% Inj 500 ML IV.CONT ONE (08:30)
--- NOTE | 2018-09-09 09:43 | P.PN ---
Subjective Interval history: ALERT COUGH THICK SPUTUM NO HEMOPTYSIS TODAY Physical Exam Vital signs: Vital Signs 09/08/18 11:38 09/08/18 12:00 09/08/18 12:04 Temperature 98.1 F 97.7 F Pulse Rate 80 79 78 Respiratory Rate 18 18 Blood Pressure 133/78 117/71 Pulse Oximetry 97 97 09/08/18 16:00 09/08/18 19:13 09/08/18 20:00 Temperature 99.0 F 98.5 F Pulse Rate 80 89 73 Respiratory Rate 18 17 Blood Pressure 117/70 117/70 Pulse Oximetry 93 L 96 09/08/18 21:33 09/09/18 00:00 09/09/18 03:15 Temperature 97.7 F Pulse Rate 81 82 87 Respiratory Rate 15 17 Blood Pressure 123/79 Pulse Oximetry 96 97 09/09/18 04:14 09/09/18 07:00 09/09/18 07:22 Temperature 98.3 F Pulse Rate 75 78 Respiratory Rate 16 14 17 Blood Pressure 117/66 Pulse Oximetry 93 L 09/09/18 08:00 Temperature Pulse Rate Respiratory Rate Blood Pressure Pulse Oximetry 95 Intake & Output 09/08/18 09/09/18 09/09/18 18:59 06:59 18:59 Intake Total 862 / 862 106 / 106 Balance 862 / 862 106 / 106 Weight 75.5 kg Intake: IV 362 / 362 106 / 106 Cleocin Inj 900 MG In NS Inj 212 / 212 106 / 106 100 ML @ 200 mls/hr IV.SIG Q8H JOSE Rx#:[id number] Levaquin 750 mg Premix Inj 150 150 / 150 ML @ 100 mls/hr IV.SIG Q24H JOSE Rx#:[id number] Oral 500 / 500 Other: # Voids 4 3 Date of Last Bowel Movement 09/06/18 09/08/18 # Bowel Movements 4 1 Narrative: GENERAL: Well-nourished, well-developed male sitting up in bed in no acute distress. SKIN: Warm and dry. HEAD: Atraumatic. Normocephalic. EYES: Pupils equal/round. No scleral icterus. No injection or drainage. ENT: No nasal bleeding or discharge. Mucous membranes pink and moist. NECK: Trachea midline. CARDIOVASCULAR: Regular rate and rhythm. RESPIRATORY: No accessory muscle use. Diminished throughout without rhonchi or wheezing. GASTROINTESTINAL: Abdomen soft, non-tender, nondistended. + Bowel sounds MUSCULOSKELETAL: Extremities without clubbing, cyanosis, or edema. No obvious deformities. NEUROLOGICAL: Awake, alert, oriented x3. No obvious cranial nerve deficits. Motor grossly within normal limits. Normal speech. PSYCHIATRIC: Appropriate mood and affect; insight and judgment normal. Results - Labs CBC & Chem 7: 09/09/18 04:47 09/09/18 04:47 Laboratory Results - last 24 hr 09/08/18 09/08/18 09/09/18 16:30 16:30 04:47 WBC 20.1 H RBC 3.85 L Hgb 12.9 L Hct 35.2 L MCV 91.6 MCH 33.5 MCHC 36.5 H RDW 13.2 Plt Count 222 MPV 7.6 Prelim Diff (Auto) Slide review pending Neut % (Auto) 90.1 H Lymph % (Auto) 5.7 L [place] % (Auto) 4.0 Eos % (Auto) 0.0 Baso % (Auto) 0.2 Neut # (Auto) 18.1 H Lymph # (Auto) 1.2 [place] # (Auto) 0.8 Eos # (Auto) 0.0 Baso # (Auto) 0.0 WBC Differential . Diff Scan Auto diff confirmed Differential Comment . PT 15.4 H 13.1 H INR 1.5 1.3 APTT 25.1 Sodium Potassium Chloride Carbon Dioxide Anion Gap BUN Creatinine Estimated GFR Random Glucose Calcium Calcium Adj for Albumin Magnesium Total Bilirubin AST ALT Alkaline Phosphatase Total Protein Albumin 09/09/18 09/09/18 04:47 04:47 WBC 19.5 H RBC 3.93 L Hgb 12.6 L Hct 35.9 L MCV 91.4 MCH 32.0 MCHC 35.0 RDW 13.3 Plt Count 220 MPV 7.1 Prelim Diff (Auto) Slide review pending Neut % (Auto) 89.8 H Lymph % (Auto) 5.8 L [place] % (Auto) 4.3 Eos % (Auto) 0.0 Baso % (Auto) 0.1 Neut # (Auto) 17.5 H Lymph # (Auto) 1.1 [place] # (Auto) 0.8 Eos # (Auto) 0.0 Baso # (Auto) 0.0 WBC Differential Diff Scan Differential Comment . PT INR APTT Sodium 136 Potassium 3.5 Chloride 96 L Carbon Dioxide 31.5 Anion Gap 9 BUN 28 H Creatinine 0.95 Estimated GFR 81 L Random Glucose 244 H Calcium 7.4 L* Calcium Adj for Albumin 8.7 Magnesium 2.5 Total Bilirubin 0.3 AST 37 ALT 131 H Alkaline Phosphatase 72 Total Protein 5.1 L Albumin 2.4 L - Imaging Impressions Abdomen X-Ray 09/08/18 00:00 CONCLUSION: Prominent stool in the proximal colon. Chest X-Ray 09/08/18 00:00 CONCLUSION: Increased density at the bases likely related to a combination of interstitial disease and atelectasis. This appears new. Stable suspected scarring in the upper lungs and in the right midlung/minor fissure region. Assessment and Plan - Plan COPD EXACERBATION IMPROVING minor hemoptysis PLAN O2 NEEDED BRONCHODILATOR THERAPY INCREASE ACTIVITY low dose theophylline bronchoscopy TODAY
[2018-09-09 09:54] LABS: Lymphocytes 5 % (9-44); Metamyelocytes 2 % (0-1); Monocytes 2 % (0-8); Myelocytes 1 % (0-0); Tallied Nucleated RBC 1 (0-0)
[2018-09-09 09:55] LABS: Platelet Estimate Normal (Normal); Platelet Morphology Normal (Normal); RBC Morphology Normal (Normal); Toxic Granulation 2+
--- NOTE | 2018-09-09 10:15 | XR ---
EXAM DATE: 09/09/2018 10:11 AM EST AGE/SEX: 58 years / Male INDICATIONS: Post bronchoscopy. Evaluate for pneumothorax. CLINICAL DATA: This is the patient's subsequent encounter. Patient reports that signs and symptoms h ave been present for 2 days and indicates a pain score of 0/10. MEDICAL/SURGICAL HISTORY: . Chronic obstructive pulmonary disease. Carcinoma, lung. AFIB. . L obectomy. COMPARISON: [facility] – [place]ST 1V SINGLE AP, 09/08/2018. . FINDINGS: Status post bronchoscopy. No evidence of pneumothorax. There continues to be interstitial infiltrate in the left lung base with chronic interstitial changes bilaterally. No significant changes seen comp ared to the prior examination. No pleural effusions. The heart size is within normal limits and stabl e. The bony structures are stable. CONCLUSION: Status post bronchoscopy. No evidence of pneumothorax. Electronically signed by: Ilir Cota MD Board Certified Radiologist 09/09/2018 10:14 AM EST
--- NOTE | 2018-09-09 10:20 | MR ---
cc: Inderjit Jansen MD DATE: 09/09/2018 PROCEDURE: Fiberoptic bronchoscopy, flexible. REASON FOR BRONCHOSCOPY: Hemoptysis, rule out recurrent malignancy. PROCEDURE IN DETAIL: Fiberoptic bronchoscopy was performed via LMA. Vocal cords appeared somewhat irregular. Trachea moderately hyperemic. Tegan sharp. Left main bronchus and left upper and lower lobes without obstruction, mass lesion, or bleeding. Right main stem bronchus patent. Right upper, middle, and lower lobes with no obstruction, no mass lesion; however, thick mucoid plugs which were quite difficult to remove eventually were removed. Washings from both sides of the tracheobronchial tree sent for routine TB, fungal cultures, cytological exam. Cytologic brush biopsy right lower lobe obtained as well for cytological exam. The procedure well tolerated. The patient was transferred to the recovery room in stable condition. Inderjit Jansen MD WWW/ , 09:45 AM , 09:49 AM
[2018-09-09] MEDS: Senna/Docusate Sodium 8.6/50 MG Tablet PO SCH ×2 (11:11→20:01)
[2018-09-09] MEDS: MethylPREDNISolone Sod Succinate Inj 125 MG/2 ML Vial IV.PUSH SCH ×3 (11:12→17:01)
[2018-09-09] MEDS: dilTIAZem CD 240 MG Capsule PO SCH (11:12)
[2018-09-09] MEDS: Budesonide-Formoterol 80/4.5 MCG 6.9 GM Inhaler INH SCH ×2 (11:13→19:59)
[2018-09-09] MEDS: Metoprolol Tartrate 25 MG Tablet PO ONE ×2 (11:14→11:24)
[2018-09-09] MEDS: Ibuprofen 600 MG Tablet PO PRN (11:22)
[2018-09-09] MEDS: Theophylline ER 24 HR 100 MG Capsule PO SCH (11:22)
--- NOTE | 2018-09-09 16:04 | P.PN ---
Subjective Interval history: Follow-up visit for COPD exacerbation and pneumonia. Patient is seen and examined sitting up in bed in no acute distress status post bronchoscopy this morning. Patient endorses dyspnea with exertion, ongoing productive cough with brown and blood-tinged sputum. Denies any nausea, vomiting, fevers, chills. Reports he moved his bowels several times, denies any bloody or black stools. Physical Exam Vital signs: Vital Signs 09/08/18 16:00 09/08/18 19:13 09/08/18 20:00 Temperature 99.0 F 98.5 F Pulse Rate 80 89 73 Respiratory Rate 18 17 Blood Pressure 117/70 117/70 Pulse Oximetry 93 L 96 09/08/18 21:33 09/09/18 00:00 09/09/18 03:15 Temperature 97.7 F Pulse Rate 81 82 87 Respiratory Rate 15 17 Blood Pressure 123/79 Pulse Oximetry 96 97 09/09/18 04:14 09/09/18 07:00 09/09/18 07:22 Temperature 98.3 F Pulse Rate 75 78 Respiratory Rate 16 14 17 Blood Pressure 117/66 Pulse Oximetry 93 L 09/09/18 08:00 09/09/18 09:30 09/09/18 09:45 Temperature 98.5 F Pulse Rate 79 95 H Respiratory Rate 26 H 24 Blood Pressure 126/78 128/80 Pulse Oximetry 95 91 L 93 L 09/09/18 10:00 09/09/18 10:10 09/09/18 10:15 Temperature Pulse Rate 81 79 77 Respiratory Rate 17 14 Blood Pressure 131/82 116/75 Pulse Oximetry 94 L 94 L 09/09/18 11:22 09/09/18 12:00 Temperature 98 F Pulse Rate 78 Respiratory Rate 17 Blood Pressure 125/86 Pulse Oximetry 95 92 L Intake & Output 09/08/18 09/09/18 09/09/18 18:59 06:59 18:59 Intake Total 862 / 862 106 / 106 106 / 106 Balance 862 / 862 106 / 106 106 / 106 Weight 75.5 kg Intake: IV 362 / 362 106 / 106 106 / 106 Cleocin Inj 900 MG In NS Inj 212 / 212 106 / 106 106 / 106 100 ML @ 200 mls/hr IV.SIG Q8H [facility] Rx#:[id number] Levaquin 750 mg Premix Inj 150 150 / 150 ML @ 100 mls/hr IV.SIG Q24H [facility] Rx#:[id number] Oral 500 / 500 Other: # Voids 4 3 3 Date of Last Bowel Movement 09/06/18 09/08/18 # Bowel Movements 4 1 1 Narrative: GENERAL: Well-nourished, well-developed male sitting up in bed in no acute distress. SKIN: Warm and dry. HEAD: Atraumatic. Normocephalic. EYES: Pupils equal/round. No scleral icterus. No injection or drainage. ENT: No nasal bleeding or discharge. Mucous membranes pink and moist. NECK: Trachea midline. CARDIOVASCULAR: Regular rate and rhythm. RESPIRATORY: No accessory muscle use. Diminished throughout faint posterior lung wheezing. GASTROINTESTINAL: Abdomen soft, non-tender, nondistended. + Bowel sounds MUSCULOSKELETAL: Extremities without clubbing, cyanosis, or edema. No obvious deformities. NEUROLOGICAL: Awake, alert, oriented x3. No obvious cranial nerve deficits. Motor grossly within normal limits. Normal speech. PSYCHIATRIC: Appropriate mood and affect; insight and judgment normal. Results - Labs CBC & Chem 7: 09/09/18 04:47 09/09/18 04:47 Laboratory Results - last 24 hr 09/08/18 09/08/18 09/09/18 16:30 16:30 04:47 WBC 20.1 H RBC 3.85 L Hgb 12.9 L Hct 35.2 L MCV 91.6 MCH 33.5 MCHC 36.5 H RDW 13.2 Plt Count 222 MPV 7.6 Prelim Diff (Auto) Slide review pending Neut % (Auto) 90.1 H Lymph % (Auto) 5.7 L [place] % (Auto) 4.0 Eos % (Auto) 0.0 Baso % (Auto) 0.2 Neut # (Auto) 18.1 H Lymph # (Auto) 1.2 [place] # (Auto) 0.8 Eos # (Auto) 0.0 Baso # (Auto) 0.0 WBC Differential . Diff Scan Auto diff confirmed Seg Neuts % (Manual) Band Neuts % (Manual) Lymphocytes % (Manual) Monocytes % (Manual) Metamyelocytes % (Man) Myelocytes % (Man) Abs Neuts (Manual) Nucleated RBCs/100 WBC Differential Comment . Toxic Granulation Platelet Estimate Platelet Morphology RBC Morphology PT 15.4 H 13.1 H INR 1.5 1.3 APTT 25.1 Sodium Potassium Chloride Carbon Dioxide Anion Gap BUN Creatinine Estimated GFR Random Glucose Calcium Calcium Adj for Albumin Magnesium Total Bilirubin AST ALT Alkaline Phosphatase Total Protein Albumin 09/09/18 09/09/18 04:47 04:47 WBC 19.5 H RBC 3.93 L Hgb 12.6 L Hct 35.9 L MCV 91.4 MCH 32.0 MCHC 35.0 RDW 13.3 Plt Count 220 MPV 7.1 Prelim Diff (Auto) Slide review pending Neut % (Auto) 89.8 H Lymph % (Auto) 5.8 L [place] % (Auto) 4.3 Eos % (Auto) 0.0 Baso % (Auto) 0.1 Neut # (Auto) 17.5 H Lymph # (Auto) 1.1 [place] # (Auto) 0.8 Eos # (Auto) 0.0 Baso # (Auto) 0.0 WBC Differential Manual diff final Diff Scan Seg Neuts % (Manual) 84 H Band Neuts % (Manual) 6 Lymphocytes % (Manual) 5 L Monocytes % (Manual) 2 Metamyelocytes % (Man) 2 H Myelocytes % (Man) 1 H Abs Neuts (Manual) 18.1 H Nucleated RBCs/100 WBC 1 H Differential Comment . Toxic Granulation 2+ H Platelet Estimate Normal Platelet Morphology Normal RBC Morphology Normal PT INR APTT Sodium 136 Potassium 3.5 Chloride 96 L Carbon Dioxide 31.5 Anion Gap 9 BUN 28 H Creatinine 0.95 Estimated GFR 81 L Random Glucose 244 H Calcium 7.4 L* Calcium Adj for Albumin 8.7 Magnesium 2.5 Total Bilirubin 0.3 AST 37 ALT 131 H Alkaline Phosphatase 72 Total Protein 5.1 L Albumin 2.4 L - Imaging Impressions Chest X-Ray 09/09/18 09:55 CONCLUSION: Status post bronchoscopy. No evidence of pneumothorax. Assessment and Plan - Assessment (1) COPD exacerbation Code(s): J44.1 - Chronic obstructive pulmonary disease with (acute) exacerbation Status: Acute (2) Paroxysmal atrial fibrillation Code(s): I48.0 - Paroxysmal atrial fibrillation Status: Acute (3) Abnormal EKG Code(s): R94.31 - Abnormal electrocardiogram [ECG] [EKG] Status: Acute (4) Tobacco abuse counseling Code(s): Z71.6 - Tobacco abuse counseling Status: Acute - Plan COPD exacerbation Large infiltrate present on CT of chest -Continue antibiotics -Continue Solu-Medrol 125 mg 3 times daily, continue scheduled breathing treatments. -Off of BiPAP tolerating nasal cannula on 3 L -Pulmonary following, appreciate assistance. - Low dose theophylline 100 mg daily due to liver dysfunction, check levels in 3 days. -s/p bronchoscopy by Dr. Jansen 09/09, thick mucous plugs removed, washing with labs pending. Suspect aspiration pneumonia Suspected sepsis on admission with leukocytosis, tachycardia -CT angiogram of the chest revealed pervasive infiltrates consistent with pneumonia -Chest x-ray with increasing densities bilaterally greater on left. Respiratory status stable on 3 L nasal cannula. -Persistent leukocytosis -Continue Levaquin and clindamycin, bronchial washings pending. Hemoptysis, acute -Repeat chest x-ray this morning with noted increased densities bilaterally greater on the left. Stable suspected scarring in upper lungs and in the right midlung/minor fissure region. -Check H&H tomorrow in the a.m., hold Coumadin, n.p.o. after midnight for planned bronchoscopy tomorrow. Abdominal fullness, history of ascites and liver disease -Ultrasound of abdomen showed no abnormalities - KUB today with prominent stool in proximal colon, s/p lactulose x1 with +BM -LFTs today improving Continue Bumex Atrial fibrillation, rate controlled -Poor compliance as outpatient on medications, subtherapeutic INR on admission 1.2 -INR 1.3, Coumadin resumed. -Pharmacy assisting with dosing, appreciate assistance, continue monitoring INRs. Hypokalemia, acute -Hypocalcemia, acute -Continue potassium supplementation, calcium and vitamin D replacement. Insomnia, resolved -Continue Ambien as needed DVT prophylaxis-Coumadin Discussed Condition With: Patient and RN. Discharge Planning: Likely will be difficult placement. Patient is homeless and lives in his car and is requiring oxygen, most likely will need oxygen on discharge depending on walk test.
[2018-09-09] MEDS: traZODone 100 MG Tablet PO SCH (20:00)
[2018-09-09] MEDS: Calcium/Vitamin D 250/125 MG Tablet PO SCH (20:01)
[2018-09-09] MEDS: Zolpidem Tartrate 5 MG Tablet PO PRN (20:01)
[2018-09-10 05:25] LABS: INR 1.1 Ratio; Prothrombin Time 11.5 sec (9.8-11.6)
[2018-09-10] MEDS: dilTIAZem CD 240 MG Capsule PO SCH (08:20)
[2018-09-10] MEDS: Theophylline ER 24 HR 100 MG Capsule PO SCH (08:21)
[2018-09-10] MEDS: Ibuprofen 600 MG Tablet PO PRN ×2 (08:21→20:46)
[2018-09-10] MEDS: Calcium/Vitamin D 250/125 MG Tablet PO SCH ×2 (08:21→20:43)
[2018-09-10] MEDS: Senna/Docusate Sodium 8.6/50 MG Tablet PO SCH ×2 (08:21→20:43)
[2018-09-10] MEDS: Budesonide-Formoterol 80/4.5 MCG 6.9 GM Inhaler INH SCH ×2 (08:22→20:45)
--- NOTE | 2018-09-10 08:49 | P.PN ---
Subjective Interval history: Follow-up visit for COPD exacerbation and pneumonia. Patient seen and examined sitting up in bed in no acute distress, not wearing his oxygen this morning, room air oxygen saturation 92%. He reports his breathing is slightly better today. Denies any fevers, chills, nausea, vomiting or diarrhea. No further hemoptysis reported. He does complain of right flank tenderness, area tender to palpation, no masses felt, no ecchymosis noted. Also reports he did not sleep more than an hour overnight, Ambien ineffective. Physical Exam Vital signs: Vital Signs 09/09/18 09:30 09/09/18 09:45 09/09/18 10:00 Temperature 98.5 F Pulse Rate 79 95 H 81 Respiratory Rate 26 H 24 17 Blood Pressure 126/78 128/80 131/82 Pulse Oximetry 91 L 93 L 94 L 09/09/18 10:10 09/09/18 10:15 09/09/18 11:22 Temperature Pulse Rate 79 77 Respiratory Rate 14 Blood Pressure 116/75 Pulse Oximetry 94 L 95 09/09/18 12:00 09/09/18 12:45 09/09/18 19:15 Temperature 98 F 97.4 F L 97.8 F Pulse Rate 78 79 85 Respiratory Rate 17 17 22 Blood Pressure 125/86 110/60 118/67 Pulse Oximetry 92 L 95 96 09/09/18 20:00 09/09/18 20:07 09/09/18 20:08 Temperature Pulse Rate 85 Respiratory Rate 20 Blood Pressure Pulse Oximetry 95 96 95 09/09/18 23:59 09/10/18 04:08 09/10/18 05:58 Temperature 98.2 F 98 F Pulse Rate 89 87 92 H Respiratory Rate 18 18 18 Blood Pressure 116/70 114/66 Pulse Oximetry 96 95 09/10/18 07:00 09/10/18 07:59 Temperature Pulse Rate 90 Respiratory Rate 16 Blood Pressure Pulse Oximetry 95 Intake & Output 09/09/18 09/10/18 09/10/18 18:59 06:59 18:59 Intake Total 362 / 362 586 / 586 Balance 362 / 362 586 / 586 Weight 71 kg Intake: IV 362 / 362 106 / 106 NS Inj 500 ML @ 30 mls/hr IV. 0 / 0 CONT .[id number] [facility] Rx#:[id number] Cleocin Inj 900 MG In NS Inj 212 / 212 106 / 106 100 ML @ 200 mls/hr IV.SIG Q8H [facility] Rx#:[id number] Levaquin 750 mg Premix Inj 150 150 / 150 ML @ 100 mls/hr IV.SIG Q24H [facility] Rx#:[id number] Oral 480 / 480 Other: # Voids 1 2 Date of Last Bowel Movement 09/09/18 # Bowel Movements 1 2 Narrative: GENERAL: Well-nourished, well-developed male sitting up in bed in no acute distress. SKIN: Warm and dry. HEAD: Atraumatic. Normocephalic. EYES: Pupils equal/round. No scleral icterus. No injection or drainage. ENT: No nasal bleeding or discharge. Mucous membranes pink and moist. NECK: Trachea midline. CARDIOVASCULAR: Regular rate and rhythm. RESPIRATORY: No accessory muscle use. Diminished throughout faint posterior lung wheezing. GASTROINTESTINAL: Abdomen soft, non-tender, nondistended. + Bowel sounds MUSCULOSKELETAL: Extremities without clubbing, cyanosis, or edema. No obvious deformities. Right lower flank tenderness to palpation. NEUROLOGICAL: Awake, alert, oriented x3. No obvious cranial nerve deficits. Motor grossly within normal limits. Normal speech. PSYCHIATRIC: Appropriate mood and affect; insight and judgment normal. Results - Labs CBC & Chem 7: 09/09/18 04:47 09/09/18 04:47 Laboratory Results - last 24 hr 09/09/18 09/10/18 04:47 04:34 WBC Differential Manual diff final Seg Neuts % (Manual) 84 H Band Neuts % (Manual) 6 Lymphocytes % (Manual) 5 L Monocytes % (Manual) 2 Metamyelocytes % (Man) 2 H Myelocytes % (Man) 1 H Abs Neuts (Manual) 18.1 H Nucleated RBCs/100 WBC 1 H Toxic Granulation 2+ H Platelet Estimate Normal Platelet Morphology Normal RBC Morphology Normal PT 11.5 INR 1.1 - Imaging Impressions Chest X-Ray 09/09/18 09:55 CONCLUSION: Status post bronchoscopy. No evidence of pneumothorax. Assessment and Plan - Assessment (1) COPD exacerbation Code(s): J44.1 - Chronic obstructive pulmonary disease with (acute) exacerbation Status: Acute (2) Paroxysmal atrial fibrillation Code(s): I48.0 - Paroxysmal atrial fibrillation Status: Acute (3) Abnormal EKG Code(s): R94.31 - Abnormal electrocardiogram [ECG] [EKG] Status: Acute (4) Tobacco abuse counseling Code(s): Z71.6 - Tobacco abuse counseling Status: Acute - Plan COPD exacerbation Large infiltrate present on CT of chest -Continue antibiotics -Decrease Solu-Medrol to 40 mg every 8 hours, continue scheduled breathing treatments. -Off of BiPAP tolerating nasal cannula on 3 L -Pulmonary following, appreciate assistance. - Low dose theophylline 100 mg daily due to liver dysfunction, check levels -s/p bronchoscopy by Dr. Jansen 09/09, thick mucous plugs removed, washing pending. Suspect aspiration pneumonia Suspected sepsis on admission with leukocytosis, tachycardia -CT angiogram of the chest revealed pervasive infiltrates consistent with pneumonia -Chest x-ray with increasing densities bilaterally greater on left. Respiratory status stable on 3 L nasal cannula. Attempt to wean oxygen. -Persistent leukocytosis, possibly secondary to ongoing steroid use, recheck CBC in the a.m., afebrile, breathing improved. -Transition IV antibiotics p.o., currently on Levaquin and clindamycin -Bronchial washings pending. Hemoptysis, acute -Resolved, status post bronchoscopy Abdominal fullness, history of ascites and liver disease -Ultrasound of abdomen showed no abnormalities -LFTs improved -Change IV Bumex to p.o. daily Atrial fibrillation, rate controlled -Poor compliance as outpatient on medications, subtherapeutic INR on admission 1.2 -INR 1.1, continue Coumadin -Pharmacy assisting with dosing, appreciate assistance, continue monitoring INRs. Hypokalemia, acute -Hypocalcemia, acute -Continue potassium supplementation, calcium and vitamin D replacement. -BMP tomorrow in the a.m. Insomnia, resolved -Increase Ambien dose to 10 mg at bedtime as needed Right flank pain -Likely musculoskeletal, trial of Lidoderm patch. DVT prophylaxis-Coumadin Discussed Condition With: Patient and RN. Discharge Planning: Likely will be difficult placement. Patient is homeless and lives in his car and is requiring oxygen, most likely will need oxygen on discharge depending on walk test.
--- NOTE | 2018-09-10 13:01 | P.PN ---
Subjective Interval history: ALERT LESS SOB , POST BRONCHOSCOPY Physical Exam Vital signs: Vital Signs 09/09/18 19:15 09/09/18 20:00 09/09/18 20:07 Temperature 97.8 F Pulse Rate 85 85 Respiratory Rate 22 20 Blood Pressure 118/67 Pulse Oximetry 96 95 96 09/09/18 20:08 09/09/18 23:59 09/10/18 04:08 Temperature 98.2 F Pulse Rate 89 87 Respiratory Rate 18 18 Blood Pressure 116/70 Pulse Oximetry 95 96 09/10/18 05:58 09/10/18 07:00 09/10/18 07:25 Temperature 98 F 97.4 F L Pulse Rate 92 H 90 87 Respiratory Rate 18 16 18 Blood Pressure 114/66 138/73 Pulse Oximetry 95 94 L 09/10/18 07:59 09/10/18 08:00 09/10/18 12:00 Temperature 98.1 F Pulse Rate 83 86 Respiratory Rate 18 Blood Pressure 122/76 Pulse Oximetry 95 95 98 09/10/18 12:02 Temperature Pulse Rate 93 H Respiratory Rate Blood Pressure Pulse Oximetry Intake & Output 09/09/18 09/10/18 09/10/18 18:59 06:59 18:59 Intake Total 362 / 362 586 / 586 106 / 106 Balance 362 / 362 586 / 586 106 / 106 Weight 71 kg Intake: IV 362 / 362 106 / 106 106 / 106 NS Inj 500 ML @ 30 mls/hr IV. 0 / 0 CONT .[id number] [facility] Rx#:[id number] Cleocin Inj 900 MG In NS Inj 212 / 212 106 / 106 106 / 106 100 ML @ 200 mls/hr IV.SIG Q8H [facility] Rx#:[id number] Levaquin 750 mg Premix Inj 150 150 / 150 ML @ 100 mls/hr IV.SIG Q24H [facility] Rx#:[id number] Oral 480 / 480 Other: # Voids 1 2 Date of Last Bowel Movement 09/09/18 # Bowel Movements 1 2 Narrative: GENERAL: Well-nourished, well-developed male sitting up in bed in no acute distress. SKIN: Warm and dry. HEAD: Atraumatic. Normocephalic. EYES: Pupils equal/round. No scleral icterus. No injection or drainage. ENT: No nasal bleeding or discharge. Mucous membranes pink and moist. NECK: Trachea midline. CARDIOVASCULAR: Regular rate and rhythm. RESPIRATORY: No accessory muscle use. Diminished throughout faint posterior lung wheezing. GASTROINTESTINAL: Abdomen soft, non-tender, nondistended. + Bowel sounds MUSCULOSKELETAL: Extremities without clubbing, cyanosis, or edema. No obvious deformities. NEUROLOGICAL: Awake, alert, oriented x3. No obvious cranial nerve deficits. Motor grossly within normal limits. Normal speech. PSYCHIATRIC: Appropriate mood and affect; insight and judgment normal. Results - Labs CBC & Chem 7: 09/09/18 04:47 09/09/18 04:47 Laboratory Results - last 24 hr 09/10/18 04:34 PT 11.5 INR 1.1 Microbiology 09/09/18 09:14 Bronchial - Right Lower Lobe Gram Stain - Final 09/09/18 09:14 Bronchial - Right Lower Lobe Bronchial Culture - Preliminary Heavy growth normal respiratory ale at 24 hours Assessment and Plan - Plan COPD EXACERBATION IMPROVING minor hemoptysis,RESOLVED PLAN O2 NEEDED BRONCHODILATOR THERAPY INCREASE ACTIVITY low dose theophylline
[2018-09-10] MEDS: MethylPREDNISolone Sod Succinate Inj 40 MG/ML Vial IV.PUSH SCH ×2 (14:03→21:24)
[2018-09-10] MEDS: Lidocaine 5% Patch T-DERMAL SCH (14:04)
[2018-09-10] MEDS: traZODone 100 MG Tablet PO SCH (20:43)
[2018-09-10] MEDS: Zolpidem Tartrate 5 MG Tablet PO PRN (20:48)
[2018-09-11 04:32] LABS: Baso % (Auto) 0.2 % (0.0-2.0); Hematocrit 36.2 % (39.0-51.0); Hemoglobin 12.4 gm/dL (13.0-17.0); Lymph # (Auto) 0.9 th/mm3 (1.0-4.8); Lymph % (Auto) 4.4 % (9.0-44.0); Mean Corpuscular HGB Conc 34.3 % (32.0-36.0); Mean Corpuscular Hemoglobin 31.7 pg (27.0-34.0); Mean Corpuscular Volume 92.6 fL (80.0-100.0); Mean Platelet Volume 6.8 fL (7.0-11.0); Mono # (Auto) 0.6 th/mm3 (0.0-0.9); Mono % (Auto) 2.9 % (0.0-8.0); Neut # (Auto) 18.7 th/mm3 (1.8-7.7); Neut % (Auto) 92.5 % (16.0-70.0); Platelet Count 214 th/mm3 (150-450); Red Blood Count 3.91 mil/mm3 (4.50-5.90); Red Cell Distribution Width 13.4 % (11.6-17.2); White Blood Count 20.2 th/mm3 (4.0-11.0)
[2018-09-11 04:46] LABS: INR 1.5 Ratio; Prothrombin Time 14.9 sec (9.8-11.6)
[2018-09-11 04:56] LABS: Anion Gap 8 meq/L (5-15); Blood Urea Nitrogen 29 mg/dL (7-18); Calcium 7.4 mg/dL (8.5-10.1); Carbon Dioxide 29.9 meq/L (21.0-32.0); Chloride 100 meq/L (98-107); Glomerular Filtration Rate 81 mL/min (>89); Glucose,Random 221 mg/dL (74-106); Potassium 4.5 meq/L (3.5-5.1); Sodium 138 meq/L (136-145)
[2018-09-11 05:04] LABS: Albumin 2.3 g/dL (3.4-5.0); Calcium-Albumin Corrected 8.8 mg/dL (8.5-10.1)
[2018-09-11] MEDS: MethylPREDNISolone Sod Succinate Inj 40 MG/ML Vial IV.PUSH SCH ×2 (05:22→21:36)
[2018-09-11 05:52] LABS: Lymphocytes 5 % (9-44); Metamyelocytes 3 % (0-1); Monocytes 1 % (0-8)
[2018-09-11] MEDS ORDERED: Dextrose 50% in Water 50 ML Vial IV.PUSH PRN (07:21)
[2018-09-11] MEDS: Lidocaine 5% Patch T-DERMAL SCH (08:04)
[2018-09-11] MEDS: Ibuprofen 600 MG Tablet PO PRN ×2 (08:06→21:35)
[2018-09-11] MEDS: dilTIAZem CD 240 MG Capsule PO SCH (08:06)
[2018-09-11] MEDS: levoFLOXacin 750 MG Tablet PO SCH (08:06)
[2018-09-11] MEDS: Theophylline ER 24 HR 100 MG Capsule PO SCH (08:06)
[2018-09-11] MEDS: Calcium/Vitamin D 250/125 MG Tablet PO SCH ×2 (08:07→21:34)
[2018-09-11] MEDS: Senna/Docusate Sodium 8.6/50 MG Tablet PO SCH ×2 (08:08→21:30)
[2018-09-11] MEDS: Budesonide-Formoterol 80/4.5 MCG 6.9 GM Inhaler INH SCH ×2 (08:08→21:47)
[2018-09-11] MEDS: Insulin NovoLOG Aspart Correctional Sugar Inj SQ SCH ×4 (08:17→21:39)
--- NOTE | 2018-09-11 08:55 | P.PN ---
Subjective Interval history: Follow-up visit for COPD exacerbation and pneumonia. Patient seen and examined sitting up in bed in no acute distress, on 3 L nasal cannula with oxygen saturation 98%. No further hemoptysis reported, denies any fevers, chills, nausea, vomiting or diarrhea. Patient reports he slept better overnight with higher dose of Ambien, right flank pain resolved with Lidoderm patch. He is concerned regarding where he will go after discharge due to possibly needing oxygen. Patient requesting a walker to ambulate, will consult PT for evaluation , patient reports he is weak in his lower extremities. Physical Exam Vital signs: Vital Signs 09/10/18 12:00 09/10/18 12:02 09/10/18 15:53 Temperature 98.1 F 98.4 F Pulse Rate 86 93 H 86 Respiratory Rate 18 18 Blood Pressure 122/76 115/65 Pulse Oximetry 98 96 09/10/18 15:59 09/10/18 20:00 09/10/18 20:11 Temperature 98.3 F Pulse Rate 78 83 83 Respiratory Rate 18 Blood Pressure 116/71 Pulse Oximetry 98 97 09/10/18 20:15 09/10/18 23:34 09/11/18 00:00 Temperature 98.2 F Pulse Rate 84 73 75 Respiratory Rate 17 19 Blood Pressure 119/66 Pulse Oximetry 96 98 09/11/18 04:00 09/11/18 04:18 09/11/18 05:49 Temperature 97.4 F L Pulse Rate 90 75 Respiratory Rate 18 Blood Pressure 123/75 Pulse Oximetry 97 98 09/11/18 07:44 Temperature Pulse Rate 73 Respiratory Rate 20 Blood Pressure Pulse Oximetry 94 L Intake & Output 09/10/18 09/11/18 09/11/18 18:59 06:59 18:59 Intake Total 1456 / 1456 240 / 240 Balance 1456 / 1456 240 / 240 Intake: IV 256 / 256 Cleocin Inj 900 MG In NS Inj 106 / 106 100 ML @ 200 mls/hr IV.SIG Q8H JOSE Rx#:[id number] Levaquin 750 mg Premix Inj 150 150 / 150 ML @ 100 mls/hr IV.SIG Q24H JOSE Rx#:[id number] Oral 1200 / 1200 240 / 240 Other: # Voids 5 2 Date of Last Bowel Movement 09/09/18 Narrative: GENERAL: Well-nourished, well-developed male sitting up in bed in no acute distress. SKIN: Warm and dry. HEAD: Atraumatic. Normocephalic. EYES: Pupils equal/round. No scleral icterus. No injection or drainage. ENT: No nasal bleeding or discharge. Mucous membranes pink and moist. NECK: Trachea midline. CARDIOVASCULAR: Regular rate and rhythm. RESPIRATORY: No accessory muscle use. Diminished throughout but improved. GASTROINTESTINAL: Abdomen soft, non-tender, nondistended. + Bowel sounds MUSCULOSKELETAL: Extremities without clubbing, cyanosis, or edema. No obvious deformities. NEUROLOGICAL: Awake, alert, oriented x3. No obvious cranial nerve deficits. Motor grossly within normal limits. Normal speech. PSYCHIATRIC: Appropriate mood and affect; insight and judgment normal. Results - Labs CBC & Chem 7: 09/11/18 03:59 09/11/18 03:59 Laboratory Results - last 24 hr 09/11/18 09/11/18 09/11/18 03:59 03:59 03:59 WBC 20.2 H RBC 3.91 L Hgb 12.4 L Hct 36.2 L MCV 92.6 MCH 31.7 MCHC 34.3 RDW 13.4 Plt Count 214 MPV 6.8 L Prelim Diff (Auto) Slide review pending Neut % (Auto) 92.5 H Lymph % (Auto) 4.4 L Labette % (Auto) 2.9 Eos % (Auto) 0.0 Baso % (Auto) 0.2 Neut # (Auto) 18.7 H Lymph # (Auto) 0.9 L [place] # (Auto) 0.6 Eos # (Auto) 0.0 Baso # (Auto) 0.0 WBC Differential Manual diff final Seg Neuts % (Manual) 87 H Band Neuts % (Manual) 4 Lymphocytes % (Manual) 5 L Monocytes % (Manual) 1 Metamyelocytes % (Man) 3 H Abs Neuts (Manual) 19.0 H Differential Comment . Platelet Estimate Low L Platelet Morphology Enlarged H PT 14.9 H INR 1.5 Sodium 138 Potassium 4.5 D Chloride 100 Carbon Dioxide 29.9 Anion Gap 8 BUN 29 H Creatinine 0.95 Estimated GFR 81 L POC Glucose Random Glucose 221 H Calcium 7.4 L* Calcium Adj for Albumin 8.8 Albumin 2.3 L Theophylline Less than 2.0 L 09/11/18 08:11 WBC RBC Hgb Hct MCV MCH MCHC RDW Plt Count MPV Prelim Diff (Auto) Neut % (Auto) Lymph % (Auto) Labette % (Auto) Eos % (Auto) Baso % (Auto) Neut # (Auto) Lymph # (Auto) Labette # (Auto) Eos # (Auto) Baso # (Auto) WBC Differential Seg Neuts % (Manual) Band Neuts % (Manual) Lymphocytes % (Manual) Monocytes % (Manual) Metamyelocytes % (Man) Abs Neuts (Manual) Differential Comment Platelet Estimate Platelet Morphology PT INR Sodium Potassium Chloride Carbon Dioxide Anion Gap BUN Creatinine Estimated GFR POC Glucose 195 H Random Glucose Calcium Calcium Adj for Albumin Albumin Theophylline Microbiology 09/09/18 09:14 Bronchial Washings - Right Lower Lobe Fungal Smear - Final No fungal elements seen 09/09/18 09:14 Bronchial Washings - Right Lower Lobe Acid Fast Bacilli Smear - Final No acid fast bacilli seen 09/09/18 09:14 Bronchial - Right Lower Lobe Gram Stain - Final 09/09/18 09:14 Bronchial - Right Lower Lobe Bronchial Culture - Preliminary Heavy growth normal respiratory ale at 24 hours Assessment and Plan - Assessment (1) COPD exacerbation Code(s): J44.1 - Chronic obstructive pulmonary disease with (acute) exacerbation Status: Acute (2) Paroxysmal atrial fibrillation Code(s): I48.0 - Paroxysmal atrial fibrillation Status: Acute (3) Abnormal EKG Code(s): R94.31 - Abnormal electrocardiogram [ECG] [EKG] Status: Acute (4) Tobacco abuse counseling Code(s): Z71.6 - Tobacco abuse counseling Status: Acute - Plan COPD exacerbation Large infiltrate present on CT of chest -Continue antibiotics -Decrease Solu-Medrol to 40 mg every 12 hours, continue scheduled breathing treatments. -Off of BiPAP tolerating nasal cannula on 2 L -Pulmonary following, appreciate assistance. - Low dose theophylline 100 mg daily due to liver dysfunction, theophylline level 09/11 stable. -s/p bronchoscopy by Dr. Jansen 09/09, thick mucous plugs removed, washing pending. -Respiratory status improving, increase activity, continue to wean oxygen. -Consult PT for recommendations Suspect aspiration pneumonia Suspected sepsis on admission with leukocytosis, tachycardia -CT angiogram of the chest revealed pervasive infiltrates consistent with pneumonia -Chest x-ray with increasing densities bilaterally greater on left. Respiratory status stable on 3 L nasal cannula. Attempt to wean oxygen. -Persistent leukocytosis, possibly secondary to ongoing steroid use, afebrile, breathing improved. -Continue p.o., currently on Levaquin and clindamycin -Bronchial washings pending. Hemoptysis, acute -Resolved, status post bronchoscopy Abdominal fullness, history of ascites and liver disease -Ultrasound of abdomen showed no abnormalities -LFTs improved - Bumex p.o. daily Atrial fibrillation, rate controlled -Poor compliance as outpatient on medications, subtherapeutic INR on admission 1.2 -INR 1., continue Coumadin, additional 2mg today -Pharmacy assisting with dosing, appreciate assistance, continue monitoring INRs. Hypokalemia, acute -Hypocalcemia, acute -Continue potassium supplementation, calcium and vitamin D replacement. -K level stable. Insomnia, resolved -Continue Ambien 10 mg. Right flank pain, resolved -Continue Lidoderm patch. 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 Patient is homeless and lives in his car and is requiring oxygen, continue to wean off oxygen, oxygen walk test if needed.
[2018-09-11] MEDS ORDERED: Calcium Gluconate Inj 2 GM in Dextrose 5% in Water Inj 100 ML IV.SIG ONE ×2 (09:00)
--- NOTE | 2018-09-11 19:49 | P.PNPL ---
Subjective Interval history: 58 YOWM with h/o ca lung, COPD Had Bronch by , irregularity of VC noted SOB on any activity no hemoptysis Physical Exam Vital signs: Vital Signs 09/10/18 20:00 09/10/18 20:11 09/10/18 20:15 Temperature 98.3 F Pulse Rate 83 83 84 Respiratory Rate 18 17 Blood Pressure 116/71 Pulse Oximetry 98 97 96 09/10/18 23:34 09/11/18 00:00 09/11/18 04:00 Temperature 98.2 F Pulse Rate 73 75 90 Respiratory Rate 19 Blood Pressure 119/66 Pulse Oximetry 98 09/11/18 04:18 09/11/18 05:49 09/11/18 07:44 Temperature 97.4 F L Pulse Rate 75 73 Respiratory Rate 18 20 Blood Pressure 123/75 Pulse Oximetry 97 98 94 L 09/11/18 08:00 09/11/18 12:00 09/11/18 16:00 Temperature 97.7 F 97.8 F 97.9 F Pulse Rate 78 85 87 Respiratory Rate 18 18 18 Blood Pressure 141/82 H 120/71 122/62 Pulse Oximetry 96 94 L 94 L 09/11/18 16:02 Temperature Pulse Rate 76 Respiratory Rate Blood Pressure Pulse Oximetry Intake & Output 09/11/18 09/11/18 09/12/18 06:59 18:59 06:59 Intake Total 240 / 240 1080 / 1080 Balance 240 / 240 1080 / 1080 Intake: IV 120 / 120 Calcium Gluconate Inj 2 GM In 120 / 120 D5W Inj 100 ML @ 120 mls/hr IV. SIG ONCE ONE Rx#:[id number] Oral 240 / 240 960 / 960 Other: # Voids 2 4 Date of Last Bowel Movement 09/09/18 # Bowel Movements 1 GENERAL: WBWN, mild SOB SKIN: Warm and dry. HEAD: Normocephalic. EYES: No scleral icterus. No injection or drainage. NECK: Supple, trachea midline. No JVD or lymphadenopathy. CARDIOVASCULAR: Regular rate and rhythm without murmurs, gallops, or rubs. RESPIRATORY: Breath sounds equal bilaterally. No accessory muscle use. Exp rhonchi GASTROINTESTINAL: Abdomen soft, non-tender, nondistended. MUSCULOSKELETAL: No cyanosis, or edema. BACK: Nontender without obvious deformity. No CVA tenderness. Assessment and Plan - Plan IMPRESSION: COPD Exac H/O Ca lung AF Irregularity of VC PLAN: IV Solumedrol Aerosol nebs Cont Abx May need home 02 Consult ENT
[2018-09-11] MEDS: Zolpidem Tartrate 5 MG Tablet PO PRN (21:35)
[2018-09-11] MEDS: traZODone 100 MG Tablet PO SCH (21:35)
[2018-09-12 04:27] LABS: Prothrombin Time 20.1 sec (9.8-11.6)
[2018-09-12] MEDS: Insulin NovoLOG Aspart Correctional Sugar Inj SQ SCH ×3 (08:51→17:47)
[2018-09-12] MEDS: Lidocaine 5% Patch T-DERMAL SCH (08:52)
[2018-09-12] MEDS: levoFLOXacin 750 MG Tablet PO SCH (08:53)
[2018-09-12] MEDS: Ibuprofen 600 MG Tablet PO PRN ×2 (08:53→17:44)
[2018-09-12] MEDS: Theophylline ER 24 HR 100 MG Capsule PO SCH (08:53)
[2018-09-12] MEDS: MethylPREDNISolone Sod Succinate Inj 40 MG/ML Vial IV.PUSH SCH (08:54)
[2018-09-12] MEDS: Calcium/Vitamin D 250/125 MG Tablet PO SCH (08:54)
[2018-09-12] MEDS: dilTIAZem CD 240 MG Capsule PO SCH (08:54)
[2018-09-12] MEDS: Senna/Docusate Sodium 8.6/50 MG Tablet PO SCH (08:54)
[2018-09-12] MEDS: Budesonide-Formoterol 80/4.5 MCG 6.9 GM Inhaler INH SCH (08:55)
--- NOTE | 2018-09-12 09:22 | P.PN ---
Subjective Interval history: Follow-up visit for COPD exacerbation and pneumonia. Patient seen and examined sitting up in bed in no acute distress. Reports he is feeling better, oxygen saturation 97% on 1L NC. Oxygen removed, encourage patient to ambulate, walk test ordered. Right ankle/foot edema today, patient denies any pain or recent injury. Denies any fevers, chills, nausea, vomiting or diarrhea. Physical Exam Vital signs: Vital Signs 09/11/18 12:00 09/11/18 16:00 09/11/18 16:02 Temperature 97.8 F 97.9 F Pulse Rate 85 87 76 Respiratory Rate 18 18 Blood Pressure 120/71 122/62 Pulse Oximetry 94 L 94 L 09/11/18 19:00 09/11/18 20:00 09/11/18 21:18 Temperature 98.0 F Pulse Rate 80 87 75 Respiratory Rate 19 18 Blood Pressure 120/70 Pulse Oximetry 94 L 95 09/11/18 22:05 09/11/18 23:23 09/12/18 00:00 Temperature 97.7 F Pulse Rate 84 81 Respiratory Rate 18 18 Blood Pressure 113/69 Pulse Oximetry 96 96 09/12/18 04:00 09/12/18 04:27 09/12/18 07:48 Temperature 97.9 F Pulse Rate 67 76 74 Respiratory Rate 19 18 Blood Pressure 110/59 L Pulse Oximetry 95 97 09/12/18 08:00 09/12/18 08:41 Temperature 97.6 F Pulse Rate 81 Respiratory Rate 16 Blood Pressure 134/71 Pulse Oximetry 97 97 Intake & Output 09/11/18 09/12/18 09/12/18 18:59 06:59 18:59 Intake Total 1080 / 1080 480 / 480 Balance 1080 / 1080 480 / 480 Weight 71 kg Intake: IV 120 / 120 Calcium Gluconate Inj 2 GM In 120 / 120 D5W Inj 100 ML @ 120 mls/hr IV. SIG ONCE ONE Rx#:[id number] Oral 960 / 960 480 / 480 Other: # Voids 4 2 Date of Last Bowel Movement 09/11/18 # Bowel Movements 1 0 Narrative: GENERAL: Well-nourished, well-developed male sitting up in bed in no acute distress. SKIN: Warm and dry. Right lower abdominal ecchymosis noted. HEAD: Atraumatic. Normocephalic. EYES: Pupils equal/round. No scleral icterus. No injection or drainage. ENT: No nasal bleeding or discharge. Mucous membranes pink and moist. NECK: Trachea midline. CARDIOVASCULAR: Regular rate and rhythm. RESPIRATORY: No accessory muscle use. Diminished throughout but improved. GASTROINTESTINAL: Abdomen soft, non-tender, round. + Bowel sounds MUSCULOSKELETAL: Extremities without clubbing or cyanosis. No obvious deformities. Right ankle/foot +3 edema. No calf tenderness, warmth or erythema. NEUROLOGICAL: Awake, alert, oriented x3. No obvious cranial nerve deficits. Motor grossly within normal limits. Normal speech. PSYCHIATRIC: Appropriate mood and affect; insight and judgment normal. Results - Labs CBC & Chem 7: 09/11/18 03:59 09/11/18 03:59 Laboratory Results - last 24 hr 09/11/18 09/11/18 09/12/18 16:37 20:11 03:37 PT 20.1 H INR 2.0 POC Glucose 254 H 186 H 09/12/18 07:47 PT INR POC Glucose 185 H Microbiology 09/09/18 09:14 Bronchial Washings - Right Lower Lobe Fungal Smear - Final No fungal elements seen 09/09/18 09:14 Bronchial Washings - Right Lower Lobe Fungal Culture - Preliminary 09/09/18 09:14 Bronchial - Right Lower Lobe Gram Stain - Final 09/09/18 09:14 Bronchial - Right Lower Lobe Bronchial Culture - Final Heavy growth normal respiratory ale Assessment and Plan - Assessment (1) COPD exacerbation Code(s): J44.1 - Chronic obstructive pulmonary disease with (acute) exacerbation Status: Acute (2) Paroxysmal atrial fibrillation Code(s): I48.0 - Paroxysmal atrial fibrillation Status: Acute (3) Abnormal EKG Code(s): R94.31 - Abnormal electrocardiogram [ECG] [EKG] Status: Acute (4) Tobacco abuse counseling Code(s): Z71.6 - Tobacco abuse counseling Status: Acute - Plan COPD exacerbation Large infiltrate present on CT of chest -Continue antibiotics -Continue to taper down Solu-Medrol, continue scheduled breathing treatments. -Off of BiPAP, passed walk test. -Pulmonary following, appreciate assistance. - Low dose theophylline 100 mg daily due to liver dysfunction, theophylline level 09/11 stable. -s/p bronchoscopy by Dr. Jansen 09/09, thick mucous plugs removed, washing pending. -Respiratory status improving, increase activity, continue to wean oxygen. -PT recommends PT at rehab, PT daily Suspect aspiration pneumonia Suspected sepsis on admission with leukocytosis, tachycardia -CT angiogram of the chest revealed pervasive infiltrates consistent with pneumonia -Chest x-ray with increasing densities bilaterally greater on left. Respiratory status stable on 3 L nasal cannula. Attempt to wean oxygen. -Persistent leukocytosis, possibly secondary to ongoing steroid use, afebrile, breathing improved. -Continue p.o., currently on Levaquin and clindamycin -Bronchial washings pending. - Pulmonary consulted ENT due to abnormal vocal cords. Hemoptysis, acute -Resolved, status post bronchoscopy Abdominal fullness, history of ascites and liver disease -Ultrasound of abdomen showed no abnormalities -LFTs improved -Increase Bumex dose to twice daily Atrial fibrillation, rate controlled -Poor compliance as outpatient on medications, subtherapeutic INR on admission 1.2 -INR 2.0, continue Coumadin -Pharmacy assisting with dosing, appreciate assistance, continue monitoring INRs. Right ankle/foot edema, acute -Ultrasound negative for DVT -Compression stockings, increase Bumex dose to 1 mg twice daily Hypokalemia, acute -Hypocalcemia, acute -Continue potassium supplementation, calcium and vitamin D replacement. -BMP tomorrow. Insomnia, resolved -Continue Ambien 10 mg. Right flank pain, resolved -Continue Lidoderm patch. 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
--- NOTE | 2018-09-12 10:28 | US ---
EXAM DATE: 09/12/2018 10:25 AM EST AGE/SEX: 58 years / Male INDICATIONS: Right ankle and foot edema. CLINICAL DATA: This is the patient's initial encounter. Patient reports that signs and symptoms have been present for 1 day and indicates a pain score of 1/10. MEDICAL/SURGICAL HISTORY: Chronic obstructive pulmonary disease. Carcinoma, lung. Atrial fibri llation. Lobectomy. COMPARISON: No prior exams available for comparison. TECHNIQUE: Venous ultrasound of both lower extremities was performed from the inguinal ligament to t he proximal calf. Real-time, color Doppler and spectral tracing, compression and augmentation techni ques were used. FINDINGS: Normal compression of the deep venous system from the inguinal region to the proximal calf . No echogenic clot is seen. Normal response of the venous system to augmentation and respiration. CONCLUSION: 1. The study is negative for lower extremity deep venous thrombosis. Electronically signed by: Laz Rodriguez MD Board Certified Radiologist 09/12/2018 10:27 AM EST
--- NOTE | 2018-09-12 17:47 | P.DS ---
Date of admission: 08/31/18 06:01 Primary care physician: No Primary Care Physician Attending physician on discharge: Laz Wilson Anticipated date of discharge: 09/12/18 Brief History from admission: This is a 58-year-old male with a past medical history significant for COPD tobacco use, solitary lung mass status post resection, and poor compliance. He does not have a primary care physician. He is presenting and being admitted at this time due to his COPD exacerbation. Reports having a 3- day history of severe shortness of breath. He ran out of his medications which he thinks is the main cause for this exacerbation. Has been unable to eat very much because of the shortness of breath. Denies any chest pain. Denies any nausea vomiting. Unaware of any fevers or illness currently. DS: Diagnosis - Discharge Diagnosis (1) COPD exacerbation Status: Acute (2) Paroxysmal atrial fibrillation Status: Acute (3) Abnormal EKG Status: Acute (4) Tobacco abuse counseling Status: Acute DS: Medications - Discharge Medications Prescriptions: albuterol sulfate 2.5 mg INHALATION Q4-6H PRN #90 ml PRN Reason: shortness of breath or wheezing albuterol sulfate [Ventolin HFA] 2 puff INH Q6H PRN #1 inh PRN Reason: Shortness Of Breath budesonide [Pulmicort] 0.5 mg NEB Q12HR NEB #1 inh budesonide-formoterol [Symbicort] 2 puff INHALATION BID #1 inh bumetanide 1 mg PO BID #60 tab calcium carbonate-vitamin D3 [Oyster Shell Calcium-Vit D3] 1 tab PO BID #60 tab clindamycin HCl [Cleocin HCl] 600 mg PO Q6HR #4 cap diltiazem HCl 240 mg PO DAILY #30 cap hydroxyzine HCl 25 mg PO TID PRN #90 tab PRN Reason: Anxiety levofloxacin 750 mg PO DAILY #2 tab lidocaine [Lidoderm] 1 patch TRANSDERMAL DAILY #1 box pantoprazole 40 mg PO DAILY #30 tab potassium chloride 20 meq PO BID #60 tab prednisone See Taper PO DAILY 9 Days #10 tab theophylline [Lukasz-24] 100 mg PO DAILY #30 cap trazodone 150 mg PO HS #30 tab warfarin [Coumadin] 2 mg PO DAILY@1600 #15 tab DS: Summary Hospital Course: 58-year-old male with a past medical history significant for COPD tobacco use, solitary lung mass status post resection, and poor compliance who presented to the emergency department 08/31 with 3-day history of progressive shortness of breath and out of his medications. Patient was admitted for COPD exacerbation and treatment plan outlined below. COPD exacerbation Large infiltrate present on CT of chest -Initially treated with IV antibiotics now switched over to p.o. antibiotics. -Treated with IV Solu-Medrol, will be discharged on p.o. prednisone -Required BiPAP intermittently overnight, none in the past 5 days. -Pulmonary services followed patient and recommended low-dose theophylline -s/p bronchoscopy by Dr. Jansen 09/09, thick mucous plugs removed, washing pending so far negative. -Patient passed oxygen walk test. -Anxiety, as needed Atarax Suspect aspiration pneumonia Suspected sepsis on admission with leukocytosis, tachycardia -CT angiogram of the chest revealed pervasive infiltrates consistent with pneumonia -He did with IV antibiotics and later transitioned to p.o. - Pulmonary consulted ENT due to abnormal vocal cords. Discussed with ENT, findings significant for thrush, recommendations for Diflucan. -Patient able to follow-up with ENT here or follow-up with ENT once he moved back to [place]. Abdominal fullness, history of ascites and liver disease -Ultrasound of abdomen showed no abnormalities -LFTs improved -Continue Bumex twice daily Atrial fibrillation, rate controlled -Poor compliance as outpatient on medications, subtherapeutic INR on admission 1.2 -INR 2.0, continue Coumadin -Patient will need to follow-up with PCP for ongoing INR monitoring. Right ankle/foot edema, acute -Ultrasound negative for DVT -Compression stockings, Bumex twice daily with potassium replacement. Right flank pain, resolved -Continue Lidoderm patch. Patient's needed prescriptions were refilled for him here through [facility] pharmacy. He is homeless and sleeps in his car, has contacted his brother in [place] who will be making his way over to assist with transporting him back home to [place]. Patient seen and examined sitting up in bed in no acute distress. Reports he is feeling better, oxygen saturation 97% on 1L NC. Oxygen removed, encourage patient to ambulate. Denies any fevers, chills, nausea, vomiting or diarrhea. Discussed need for ongoing follow-up as outpatient. Patient is also instructed to follow-up with disability appeal. Prescriptions provided to patient, does not require oxygen on discharge. Patient is agreeable with discharge and states "I understand you guys are not at a daycare ". Nursing staff is also assisted patient with contacting his brother via phone. - Time Spent with Patient Total time spent providing and/or coordinating discharge services: Less than 30 minutes - Quality: VTE Deep Vein Thrombosis/Pulmonary Embolism Present on Admission: No Exam Vital signs: Vital Signs 09/11/18 19:00 09/11/18 20:00 09/11/18 21:18 Temperature 98.0 F Pulse Rate 80 87 75 Respiratory Rate 19 18 Blood Pressure 120/70 Pulse Oximetry 94 L 95 Pulse Oximetry [Exertion on Room Air] Pulse Oximetry [Resting on Room Air] 09/11/18 22:05 09/11/18 23:23 09/12/18 00:00 Temperature 97.7 F Pulse Rate 84 81 Respiratory Rate 18 18 Blood Pressure 113/69 Pulse Oximetry 96 96 Pulse Oximetry [Exertion on Room Air] Pulse Oximetry [Resting on Room Air] 09/12/18 04:00 09/12/18 04:27 09/12/18 07:48 Temperature 97.9 F Pulse Rate 67 76 74 Respiratory Rate 19 18 Blood Pressure 110/59 L Pulse Oximetry 95 97 Pulse Oximetry [Exertion on Room Air] Pulse Oximetry [Resting on Room Air] 09/12/18 08:00 09/12/18 08:41 09/12/18 11:32 Temperature 97.6 F Pulse Rate 81 Respiratory Rate 16 Blood Pressure 134/71 Pulse Oximetry 97 97 Pulse Oximetry [Exertion on Room Air] 91 L Pulse Oximetry [Resting on Room Air] 95 09/12/18 12:00 09/12/18 16:00 Temperature 97.8 F 97.9 F Pulse Rate 99 H 108 H Respiratory Rate 18 18 Blood Pressure 129/60 113/73 Pulse Oximetry 94 L 95 Pulse Oximetry [Exertion on Room Air] Pulse Oximetry [Resting on Room Air] Intake & Output 09/11/18 09/12/18 09/12/18 18:59 06:59 18:59 Intake Total 1080 / 1080 480 / 480 Balance 1080 / 1080 480 / 480 Weight 71 kg Intake: IV 120 / 120 Calcium Gluconate Inj 2 GM In 120 / 120 D5W Inj 100 ML @ 120 mls/hr IV. SIG ONCE ONE Rx#:[id number] Oral 960 / 960 480 / 480 Other: # Voids 4 2 Date of Last Bowel Movement 09/11/18 09/11/18 # Bowel Movements 1 0 Results Procedures completed during hospitalization: DATE: 09/09/2018 PROCEDURE: Fiberoptic bronchoscopy, flexible. REASON FOR BRONCHOSCOPY: Hemoptysis, rule out recurrent malignancy. Labs on day of discharge: Labs from last 24 hours 09/12/18 09/12/18 09/12/18 13:58 07:47 03:37 PT 20.1 H INR 2.0 POC Glucose 261 H 185 H 09/11/18 20:11 PT INR POC Glucose 186 H Preliminary micro results at discharge 09/09/18 09:14 Fungal Culture - Preliminary Bronchial Washings - Right Lower Lobe - Impressions ITS Impressions Myocardial Perfusion Scan Nuc Med 08/31/18 00:00 CONCLUSION: 1. No evidence of fixed or reversible perfusion defect. Normal wall motion and ejection fraction. Abdomen Ultrasound 09/03/18 00:00 CONCLUSION: 1. Unremarkable ultrasound examination of the abdomen. 2. Specifically, no sonographic evidence for cholelithiasis or acute cholecystitis. Chest CTA 09/03/18 00:00 CONCLUSION: 1. This study is negative for pulmonary embolism. 2. Diffuse infiltrate is noted throughout the left upper and lower lobes and to a much lesser degree within the right middle lobe consistent with pneumonia until proven otherwise. 3. Underlying severe emphysematous changes and scattered fibrotic scarring are stable. Abdomen X-Ray 09/08/18 00:00 CONCLUSION: Prominent stool in the proximal colon. Chest X-Ray 09/09/18 09:55 CONCLUSION: Status post bronchoscopy. No evidence of pneumothorax. Venous Doppler Study 09/12/18 00:00 CONCLUSION: 1. The study is negative for lower extremity deep venous thrombosis. Discharge Plan - Discharge Disposition Patient Disposition: Discharge Home - Discharge Condition Condition: Fair - Discharge Order Discharge Orders: Discharge Order (Routine); Ordered 09/12/18 Ordered By: Krai Wood - Physicians Team Primary Care Provider: Primary Care Physici,No Attending Provider: Laz Wilson Other Providers: Antolin Grewal MD ; Inderjit Jansen MD ; Ernesto Silvestre MD ; Luis Felipe Valles MD
--- NOTE | 2018-09-12 20:03 | P.PNPL ---
Subjective Interval history: 58 YOWM with h/o ca lung, COPD Had Bronch by , irregularity of VC noted SOB on any activity no hemoptysis On RA Physical Exam Vital signs: Vital Signs 09/11/18 21:18 09/11/18 22:05 09/11/18 23:23 Temperature 97.7 F Pulse Rate 75 84 Respiratory Rate 18 18 18 Blood Pressure 113/69 Pulse Oximetry 96 Pulse Oximetry [Exertion on Room Air] Pulse Oximetry [Resting on Room Air] 09/12/18 00:00 09/12/18 04:00 09/12/18 04:27 Temperature 97.9 F Pulse Rate 81 67 76 Respiratory Rate 19 Blood Pressure 110/59 L Pulse Oximetry 96 95 Pulse Oximetry [Exertion on Room Air] Pulse Oximetry [Resting on Room Air] 09/12/18 07:48 09/12/18 08:00 09/12/18 08:41 Temperature 97.6 F Pulse Rate 74 81 Respiratory Rate 18 16 Blood Pressure 134/71 Pulse Oximetry 97 97 97 Pulse Oximetry [Exertion on Room Air] Pulse Oximetry [Resting on Room Air] 09/12/18 11:32 09/12/18 12:00 09/12/18 16:00 Temperature 97.8 F 97.9 F Pulse Rate 99 H 108 H Respiratory Rate 18 18 Blood Pressure 129/60 113/73 Pulse Oximetry 94 L 95 Pulse Oximetry [Exertion on Room Air] 91 L Pulse Oximetry [Resting on Room Air] 95 09/12/18 19:30 09/12/18 19:31 Temperature Pulse Rate 108 H Respiratory Rate 18 Blood Pressure Pulse Oximetry 95 Pulse Oximetry [Exertion on Room Air] Pulse Oximetry [Resting on Room Air] Intake & Output 09/12/18 09/12/18 09/13/18 06:59 18:59 06:59 Intake Total 480 / 480 Balance 480 / 480 Weight 71 kg Intake: Oral 480 / 480 Other: # Voids 2 1 Date of Last Bowel Movement 09/11/18 09/11/18 # Bowel Movements 0 GENERAL: WBWn NAD SKIN: Warm and dry. HEAD: Normocephalic. EYES: No scleral icterus. No injection or drainage. NECK: Supple, trachea midline. No JVD or lymphadenopathy. CARDIOVASCULAR: Regular rate and rhythm without murmurs, gallops, or rubs. RESPIRATORY: Breath sounds equal bilaterally. No accessory muscle use. GASTROINTESTINAL: Abdomen soft, non-tender, nondistended. MUSCULOSKELETAL: No cyanosis, or edema. BACK: Nontender without obvious deformity. No CVA tenderness. Assessment and Plan - Plan IMPRESSION: COPD Exac H/O Ca lung AF Irregularity of VC PLAN: IV Solumedrol Aerosol nebs Cont Abx ENT consulted, dw pt about Bronch findings Stable on RA Stable from Pulm standpoint
[2018-09-13] MEDS ORDERED: MethylPREDNISolone Sod Succinate Inj 40 MG/ML Vial IV.PUSH SCH (09:00)
== END 2018-09-12 19:54 | disposition home or self-care (01) ==
LOC: NEPE 04:15 → NEDA 06:01 → N07 08:19 → HCIS 09-04 10:52 → N06 09-06 18:55
PROVIDERS: ADMIT Internal Medicine; ATTEND Internal Medicine
DX: R06.03 Acute respiratory distress; F10.20 Alcohol dependence, uncomplicated; Z59.0 Homelessness; R79.1 Abnormal coagulation profile; R10.9 Unspecified abdominal pain; K76.89 Other specified diseases of liver; J44.1 Chronic obstructive pulmonary disease with (acute) exacerbation; R00.0 Tachycardia, unspecified; I48.0 Paroxysmal atrial fibrillation; R09.02 Hypoxemia; F41.9 Anxiety disorder, unspecified; E83.51 Hypocalcemia; Z85.118 Personal history of other malignant neoplasm of bronchus and lung; J98.4 Other disorders of lung; I10 Essential (primary) hypertension; F17.210 Nicotine dependence, cigarettes, uncomplicated; E87.6 Hypokalemia; R04.2 Hemoptysis; I48.2 Chronic atrial fibrillation; Z90.2 Acquired absence of lung [part of]; T45.516A Underdosing of anticoagulants, initial encounter; G47.00 Insomnia, unspecified; Z79.51 Long term (current) use of inhaled steroids; R23.0 Cyanosis; A41.9 Sepsis, unspecified organism; R60.0 Localized edema; J69.0 Pneumonitis due to inhalation of food and vomit; J44.0 Chronic obstructive pulmonary disease with (acute) lower respiratory infection